=== PATIENT | male | born 1950 | race African-American/Black ===

== ENCOUNTER 2018-08-25 22:12 | Emergency (ER) | payer MEDICARE ==
[~2018-08-25] VITALS: Ht 160 cm; Wt 72.6 kg
--- OUTSIDE RECORDS SUMMARY | 2018-08-25 22:15 | XMS REPORT | Clinical Summary ---
Author Author [facility] Organization [facility] Address Unknown Phone Unavailable Care Team Providers Care Automatic Buffer Name Role Phone Dylan Moran MD PCP Allergies Comments Active Allergy Reactions Severity Noted Date No Known Drug Allergies Other (See 05/15/2015 Comments) Medications End Date Status Medication Sig Dispensed Refills Start Date Active potassium chloride TAKE 1 90 tablet 6 (K-DUR) 20 MEQ CR tablet TABLET(20 8 MEQ) BY MOUTH EVERY DAY Active clopidogrel (PLAVIX) 75 Take 1 tablet 30 tablet 11 mg tablet (75 mg total) 8 by mouth daily. Active atorvastatin (LIPITOR) 40 Take 1 tablet 30 tablet 6 MG tablet (40 mg total) 8 by mouth daily. Active sacubitril-valsartan Take 1 tablet 60 tablet 6 (ENTRESTO) 49-51 mg by mouth 2 8 tablet per tablet (two) times a day. Active ELIQUIS 5 mg tablet Take 1 tablet 60 tablet 6 (5 mg total) 8 by mouth 2 (two) times a day. 09/17/2018 Active furosemide (LASIX) 40 mg Take 1 tablet 90 tablet 3 tablet (40 mg total) 9 by mouth daily for 90 days. 07/24/2019 Active metoprolol succinate XL Take 3 30 tablet 0 (TOPROL-XL) 25 mg 24 hr tablets (75 9 tablet mg total) by mouth daily. 11/03/2017 Discontinued metoprolol tartrate Take 50 mg by 3 (LOPRESSOR) 50 mg tablet mouth 2 (two) 8 times a day. 1/2 tab daily 11/14/2017 Discontinued ELIQUIS 5 mg tablet Take 1 tablet 60 tablet 0 (5 mg total) 8 by mouth 2 (two) times a day. 11/28/2017 Discontinued sacubitril-valsartan Take 1 tablet 60 tablet 0 (ENTRESTO) 49-51 mg by mouth 2 8 tablet per tablet (two) times a day. 03/08/2018 Discontinued ferrous sulfate 325 (65 Take 325 mg 0 FE) MG tablet by mouth daily with breakfast. 08/24/2017 Discontinued torsemide (DEMADEX) 20 MG Take 20 mg by 0 tablet mouth daily. 2 tabs in am & 1 tab pm 09/01/2017 Discontinued clopidogrel (PLAVIX) 75 Take 75 mg by 0 mg tablet mouth daily. 12/26/2017 Discontinued atorvastatin (LIPITOR) 40 Take 1 tablet 30 tablet 3 MG tablet (40 mg total) 8 by mouth daily. 06/13/2018 Discontinued torsemide (DEMADEX) 20 MG Take 1 tablet 90 tablet 6 tablet (20 mg total) 8 by mouth daily. 2 tabs in am & 1 tab pm 04/10/2018 Discontinued metoprolol tartrate TAKE ONE 180 tablet 0 (LOPRESSOR) 50 mg tablet TABLET BY 8 MOUTH TWICE DAILY 11/28/2017 Discontinued ELIQUIS 5 mg tablet Take 1 tablet 60 tablet 6 (5 mg total) 8 by mouth 2 (two) times a day. 01/01/2018 Discontinued ELIQUIS 5 mg tablet Take 1 tablet 60 tablet 6 (5 mg total) 8 by mouth 2 (two) times a day. 01/01/2018 Discontinued sacubitril-valsartan Take 1 tablet 60 tablet 6 (ENTRESTO) 49-51 mg by mouth 2 8 tablet per tablet (two) times a day. 12/26/2017 Discontinued atorvastatin (LIPITOR) 40 Take 1 tablet 30 tablet 6 MG tablet (40 mg total) 8 by mouth daily. 07/23/2018 Discontinued metoprolol tartrate Take 1 tablet 180 tablet 0 (LOPRESSOR) 50 mg tablet (50 mg total) 9 by mouth 2 (two) times a day. 06/13/2018 Discontinued furosemide (LASIX) 40 mg Take 40 mg by 0 tablet mouth daily. 9 06/19/2018 Discontinued furosemide (LASIX) 40 mg Take 1 tablet 90 tablet 3 tablet (40 mg total) 9 by mouth daily for 90 days. 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 Active Problems Problem Noted Date CKD (chronic kidney disease) stage 2, GFR 60-89 ml/min 07/19/2018 Atrial fibrillation with normal ventricular rate 07/16/2018 Other cirrhosis of liver 06/29/2018 Stroke 06/28/2018 Overview: w/ weakness, speech difficulties 2013 Vascular dementia without behavioral disturbance 06/26/2018 Acute renal failure 06/02/2017 Blister of leg without infection 06/02/2017 Overview: Added automatically from request for surgery [id number] Small bowel obstruction 10/23/2016 Altered bowel function 05/15/2015 Blister of lower extremity without infection 05/15/2015 Overview: Lower leg Cellulitis of lower extremity 05/15/2015 Overview: Lower limb Chronic systolic congestive heart failure 05/15/2015 Essential hypertension 05/15/2015 Edema 05/15/2015 Overview: Lower leg Fatigue 05/15/2015 Pain of right lower extremity 05/15/2015 Overview: Pain in right leg Primary thrombocytopenia 05/15/2015 Pterygium 05/15/2015 Ulcerative lesion 05/15/2015 Wax in ear 05/15/2015 Encounters Care Team Description Date Type Specialty Carolyn Andrade RN Acute on chronic congestive heart failure, unspecified heart failure type (HCC) (Primary Dx) 07/27/2018 Orders Only Cardiology Bernard Bass MD Joglekar, Swati, MD Patel, Amitkumar Natvarlal, MD Zhang, Paul, MD 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) (Primary Dx); Homicidal ideation; Chronic systolic congestive heart failure (HCC); Essential hypertension; Primary thrombocytopenia (HCC); Vascular dementia without behavioral disturbance; Cerebrovascular accident (CVA), unspecified mechanism (HCC); Other cirrhosis of liver (HCC); Atrial fibrillation with normal ventricular rate (HCC) 06/26/2018 [facility] Internal Medicine - Encounter 07/23/2018 Fiorella Nuñze MA Med Refill 06/19/2018 Refill Cardiology Malik Carreon MA Med Refill 06/13/2018 Refill Cardiology Fiorella Nuñez MA 05/23/2018 Telephone Rheumatology Fiorella Nuñez MA Med Refill 04/10/2018 Refill Cardiology David Rae MD Tang, Sherman Y., MD Chronic systolic heart failure (HCC) (Primary Dx); Chronic atrial fibrillation (HCC); 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); Atherosclerosis of [place] artery of both lower extremities, with unspecified presence of clinical manifestation (HCC); AICD (automatic cardioverter/defibrillator) present 03/08/2018 Office Visit Cardiology Fiorella Nuñez MA Med Refill 01/01/2018 Refill Cardiology Fiorella Nuñez MA Med Refill 12/26/2017 Refill Cardiology Fiorella Nuñez MA Med Refill 11/28/2017 Refill Cardiology Fiorella Nuñez MA samples 11/14/2017 Telephone Cardiology Fiorella Nuñez MA Med Refill 11/14/2017 Telephone Cardiology Rito Moe MD Med Refill 11/03/2017 Refill Cardiology Rito Moe MD Chronic systolic heart failure (Primary Dx); Chronic atrial fibrillation; 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; Atherosclerosis of [place] artery of both lower extremities, with unspecified presence of clinical manifestation; AICD (automatic cardioverter/defibrillator) present 11/02/2017 Office Visit Cardiology Darci Chen MA SAMPLE 10/02/2017 Telephone Cardiology Malik Carreon MA samples 09/12/2017 Refill Cardiology Malik Carreon MA samples 09/12/2017 Refill Cardiology Darci Chen MA Med Refill 09/01/2017 Refill Cardiology Rito Moe MD Med Refill 08/31/2017 Refill Cardiology Fiorella Nuñez MA Med Refill 08/24/2017 Refill Cardiology after 08/24/2017 Immunizations Name Dates Previously Given Next Due Influenza, Unspecified 12/03/2015 Pneumococcal Conjugate 12/03/2015 Family History Medical History Relation Name Comments Hypertension Brother Cancer Father No Known Problems Maternal Grandfather No Known Problems Maternal Grandmother Heart disease Mother Rheumatic fever Mother No Known Problems Paternal Grandfather No Known Problems Paternal Grandmother Relation Name Status Comments Brother Alive Father Maternal Grandfather Maternal Grandmother Mother Paternal Grandfather Paternal Grandmother Social History Date Tobacco Use Types Packs/Day Years Used Former Smoker Smokeless Tobacco: Former User Alcohol Use Drinks/Week oz/Week Comments No Sex Assigned at Date Recorded Not on file Industry Job Start Date Occupation Not on file Not on file Not on file Travel End Travel History Travel Start No recent travel history available. Last Filed Vital Signs Time Taken Vital Sign Reading 07/23/2018 11:45 AM CDT Blood Pressure 127/62 07/23/2018 11:45 AM CDT Pulse 63 07/23/2018 11:35 AM CDT Temperature 36.6 C (97.8 F) 07/23/2018 11:35 AM CDT Respiratory Rate 16 07/23/2018 11:45 AM CDT Oxygen Saturation 100% - Inhaled Oxygen - Concentration 07/16/2018 9:45 PM CDT Weight 78.8 kg (173 lb 12.8 oz) 06/26/2018 12:39 PM CDT Height 190.5 cm (6' 3") 06/26/2018 12:39 PM CDT Body Mass Index 21.72 Plan of Treatment Care Team Description Date Type Specialty Rito Moe MD [address] [place] [address] [phone] 09/06/2018 Office Visit Cardiology Health Maintenance Due Date Last Done Comments COLON CANCER SCREENING 2000 SHINGLES VACCINES (#1) 2000 65+ PNEUMOCOCCAL VACCINE 12/02/2016 10/05/2016, 12/03/2015, 04/03/2015 (2 of 2 - PPSV23) INFLUENZA VACCINE 11/01/2018 01/19/2018, 01/19/2017, 12/03/2015 PNEUMOCOCCAL Completed 12/03/2015, 04/03/2015 POLYSACCHARIDE VACCINE AGE 65 AND OVER Implants Device Identifier Shelf Expiration Date Model / Serial / Lot Implanted Type Area Manufactur er 03/02/2018 S [id number] P6 / / [id number] Stent Trnshptc Bili Supera Periph Peripheral N/A: N/A BACA Slf-Xpnl 120cm 5.5x80mm 6f - or Biliary VASCULAR [id number] Stents DEVICES Implanted: 06/08/2017 (Quantity not on file) 08/21/2019 [id number] / / [id number] Catheter Log Rider [place] 75cm 7x80mm Surgical N/A: N/A [facility] [place] - [id number] Implants; PERIPHERAL Implanted: 06/08/2017 (Quantity not Expanders; INTERVENTI on file) Extenders; ON Surgical VASCULAR Wires IVANA DBP [id number] / / System Orbtl Athrctmy Cath Bsd Sld Surgical N/A: N/A CARDIOVASC Micr [place] 145cm 1.25mm - Implants; ULAR [id number] Expanders; SYSTEMS Implanted: 06/08/2017 (Quantity not Extenders; INC on file) Surgical Wires 12/01/2018 [id number] / / [id number] System Clsr Sut Meditd 6fr Perclose Surgical N/A: N/A B[employer] Proglide - [id number] Implants; VASCULAR Implanted: 06/08/2017 (Quantity not Expanders; DEVICES on file) Extenders; Surgical Wires 03/30/2021 [id number] / / [id number] Plug Hrnia Rpr Perfix Xl 1.6x2in - Surgical Right: N/A [employer] [id number] Mesh or Implanted: Qty: 1 on 10/24/2016 by Matias Larson MD [employer] Procedures Comments Procedure Name Priority Date/Time Associated Diagnosis ESTIMATED GFR Routine 07/21/2018 3:08 AM CDT COMPREHENSIVE METABOLIC Routine 07/21/2018 PANEL 3:08 AM CDT HC COMPLETE BLD COUNT Routine 07/21/2018 W/AUTO DIFF 3:08 AM CDT MAGNESIUM LEVEL Routine 07/17/2018 12:11 PM CDT ESTIMATED GFR STAT 07/17/2018 12:10 PM CDT BASIC METABOLIC PANEL STAT 07/17/2018 12:10 PM CDT ESTIMATED GFR Routine 07/15/2018 5:00 AM CDT COMPREHENSIVE METABOLIC Routine 07/15/2018 PANEL 5:00 AM CDT HC COMPLETE BLD COUNT Routine 07/15/2018 W/AUTO DIFF 5:00 AM CDT ESTIMATED GFR STAT 07/13/2018 1:00 PM CDT BASIC METABOLIC PANEL STAT 07/13/2018 1:[address] CHEST W CONTRAST Routine 07/12/2018 ABDOMEN W CONTRAST PELVIS 3:16 PM CDT W CONTRAST RAE ANTIBODY Routine 07/12/2018 12:15 PM CDT DNA AB SCREEN Routine 07/12/2018 12:15 PM CDT C4 COMPLEMENT COMPONENT Routine 07/12/2018 10:48 AM CDT C3 COMPLEMENT COMPONENT Routine 07/12/2018 10:[address] CHEST WO CONTRAST Routine 07/12/2018 9:57 AM CDT PLATELET FUNCTION Routine 07/12/2018 ANALYSIS 4:57 AM CDT PARTIAL THROMBOPLASTIN Routine 07/11/2018 TIME (PTT) 3:01 PM CDT AB42 TAU, CSF Routine 07/11/2018 7:48 AM CDT ESTIMATED GFR Routine 07/11/2018 4:19 AM CDT BASIC METABOLIC PANEL Routine 07/11/2018 4:19 AM CDT HC COMPLETE BLD COUNT Routine 07/11/2018 W/AUTO DIFF 4:19 AM CDT PARTIAL THROMBOPLASTIN Routine 07/11/2018 TIME (PTT) 4:19 AM CDT IR LUMBAR PUNCTURE Routine 07/10/2018 2:42 PM CDT BK VIRUS BY PCR Routine 07/10/2018 2:34 PM CDT CYTOMEGALOVIRUS BY PCR Routine 07/10/2018 2:34 PM CDT DAVID WILLIAMSON VIRUS (EBV) Routine 07/10/2018 BY PCR 2:34 PM CDT HERPES SIMPLEX VIRUS BY Routine 07/10/2018 PCR 2:34 PM CDT NATALY VIRUS, QUANTITATIVE Routine 07/10/2018 PCR 2:34 PM CDT VARICELLA ZOSTER BY PCR Routine 07/10/2018 2:34 PM CDT ENTEROVIRUS BY PCR Routine 07/10/2018 2:34 PM CDT [place] VIRUS BY PCR, Routine 07/10/2018 CSF 2:34 PM CDT GRAM STAIN Routine 07/10/2018 2:34 PM CDT CSF CULTURE Routine 07/10/2018 2:34 PM CDT FUNGUS CULTURE Routine 07/10/2018 2:34 PM CDT AFB CULTURE Routine 07/10/2018 2:34 PM CDT CRYPTOCOCCAL ANTIGEN Routine 07/10/2018 SCREEN 2:34 PM CDT PROTEIN 14.3.3 TAU THETA, Routine 07/10/2018 CSF 2:30 PM CDT MISCELLANEOUS REFERRAL Routine 07/10/2018 TEST 2:30 PM CDT VDRL, CSF SCREEN Routine 07/10/2018 2:30 PM CDT IGG SYNTHESIS RATE STUDY Routine 07/10/2018 2:30 PM CDT LDH, CSF Routine 07/10/2018 2:30 PM CDT OLIGOCLONAL BANDING, CSF Routine 07/10/2018 2:30 PM CDT [place] VIRUS ANTIBODY Routine 07/10/2018 PANEL, CSF 2:30 PM CDT ANGIOTENSIN CONVERTING Routine 07/10/2018 ENZYME, CSF 2:30 PM CDT CSF CELL COUNT WITH Routine 07/10/2018 DIFFERENTIAL 2:30 PM CDT GLUCOSE LEVEL, CSF Routine 07/10/2018 2:30 PM CDT FLOW CYTOMETRY EVALUATION Routine 07/10/2018 2:30 PM CDT HC COMPLETE BLD COUNT Routine 07/10/2018 W/AUTO DIFF 11:02 AM CDT US ABDOMEN COMPLETE Routine 07/10/2018 9:49 AM CDT ECHOCARDIOGRAM 2D Routine 07/10/2018 COMPLETE W MMODE SPECTRAL 8:43 AM CDT COLOR DOPPLER (75414) FIBRINOGEN Routine 07/10/2018 5:30 AM CDT D-DIMER Routine 07/10/2018 5:30 AM CDT ESTIMATED GFR Routine 07/10/2018 5:18 AM CDT COMPREHENSIVE METABOLIC Routine 07/10/2018 PANEL 5:18 AM CDT PLATELET FUNCTION P2Y12 Routine 07/10/2018 4:45 AM CDT PERIPHERAL SMEAR Routine 07/09/2018 7:40 PM CDT GLENN TITER Routine 07/09/2018 4:56 PM CDT HEPARIN PF4 ANTIBODY Routine 07/09/2018 (IGG) 4:56 PM CDT ANTI-NEUTROPHILIC Routine 07/09/2018 CYTOPLASMIC ABS PANEL 4:56 PM CDT GLENN Routine 07/09/2018 4:56 PM CDT PERIPHERAL SMEAR Routine 07/09/2018 4:45 AM CDT ESTIMATED GFR Routine 07/09/2018 4:45 AM CDT PLATELET FUNCTION P2Y12 Routine 07/09/2018 4:45 AM CDT HC COMPLETE BLD COUNT Routine 07/09/2018 W/AUTO DIFF 4:45 AM CDT PARTIAL THROMBOPLASTIN Routine 07/09/2018 TIME (PTT) 4:45 AM CDT COMPREHENSIVE METABOLIC Routine 07/09/2018 PANEL 4:45 AM CDT ESTIMATED GFR Routine 07/08/2018 4:47 AM CDT PLATELET FUNCTION P2Y12 Routine 07/08/2018 4:47 AM CDT HC COMPLETE BLD COUNT Routine 07/08/2018 W/AUTO DIFF 4:47 AM CDT PROTHROMBIN TIME WITH INR Routine 07/08/2018 4:47 AM CDT COMPREHENSIVE METABOLIC Routine 07/08/2018 PANEL 4:47 AM CDT PARTIAL THROMBOPLASTIN Routine 07/08/2018 TIME (PTT) 4:47 AM CDT PARTIAL THROMBOPLASTIN Routine 07/07/2018 TIME (PTT) 5:10 AM CDT CBC HEMOGRAM Routine 07/07/2018 5:10 AM CDT PARTIAL THROMBOPLASTIN Routine 07/06/2018 TIME (PTT) 8:10 PM CDT PLATELET FUNCTION P2Y12 Routine 07/06/2018 4:00 AM CDT PARTIAL THROMBOPLASTIN Routine 07/05/2018 TIME (PTT) 7:45 PM CDT ESTIMATED GFR Routine 07/05/2018 3:20 AM CDT COMPREHENSIVE METABOLIC Routine 07/05/2018 PANEL 3:20 AM CDT PLATELET FUNCTION P2Y12 Routine 07/05/2018 3:20 AM CDT PARTIAL THROMBOPLASTIN Routine 07/04/2018 TIME (PTT) 5:15 PM CDT PLATELET FUNCTION P2Y12 Routine 07/04/2018 3:45 AM CDT PARTIAL THROMBOPLASTIN Timed 07/03/2018 TIME (PTT) 9:45 AM CDT PLATELET FUNCTION P2Y12 STAT 07/03/2018 9:45 AM CDT ESTIMATED GFR Routine 07/03/2018 3:13 AM CDT COMPREHENSIVE METABOLIC Routine 07/03/2018 PANEL 3:13 AM CDT HC COMPLETE BLD COUNT Routine 07/03/2018 W/AUTO DIFF 3:00 AM CDT PARTIAL THROMBOPLASTIN Routine 07/03/2018 TIME (PTT) 3:00 AM CDT PLATELET FUNCTION P2Y12 Routine 07/03/2018 3:00 AM CDT ESTIMATED GFR Routine 06/30/2018 4:40 AM CDT COMPREHENSIVE METABOLIC Routine 06/30/2018 PANEL 4:40 AM CDT HC COMPLETE BLD COUNT Routine 06/30/2018 W/AUTO DIFF 4:40 AM CDT C-REACTIVE PROTEIN Routine 06/29/2018 6:40 PM CDT SEDIMENTATION RATE Routine 06/29/2018 6:40 PM CDT MISCELLANEOUS REFERRAL Routine 06/29/2018 TEST 6:40 PM CDT ESTIMATED GFR Routine 06/29/2018 5:35 AM CDT VITAMIN B12 LEVEL Routine 06/29/2018 5:35 AM CDT COMPREHENSIVE METABOLIC Routine 06/29/2018 PANEL 5:35 AM CDT HC COMPLETE BLD COUNT Routine 06/29/2018 W/AUTO DIFF 5:35 AM CDT THYROID STIMULATING Routine 06/29/2018 HORMONE 5:35 AM CDT EEG AWAKE/DROWSY LESS Routine 06/28/2018 THAN 41 MIN 1:44 PM CDT PROTHROMBIN TIME WITH INR Routine 06/28/2018 5:40 AM CDT AMMONIA LEVEL Routine 06/27/2018 6:00 PM CDT SYPHILIS TREPONEMAL IGG Routine 06/27/2018 6:00 PM CDT HIV AG/AB COMBINATION Routine 06/27/2018 6:00 PM CDT XR CHEST 2 VW STAT 06/26/2018 1:[address] HEAD WO CONTRAST STAT 06/26/2018 1:39 PM CDT SMEAR REVIEW STAT 06/26/2018 1:25 PM CDT ESTIMATED GFR STAT 06/26/2018 1:25 PM CDT URINE DRUGS OF ABUSE STAT 06/26/2018 SCREEN 1:25 PM CDT B NATRIURETIC PEP, I-STAT STAT 06/26/2018 1:25 PM CDT TROPONIN, I-STAT STAT 06/26/2018 1:25 PM CDT CREATINE KINASE, TOTAL STAT 06/26/2018 (CPK) 1:25 PM CDT COMPREHENSIVE METABOLIC STAT 06/26/2018 PANEL 1:25 PM CDT URINALYSIS STAT 06/26/2018 1:25 PM CDT HC COMPLETE BLD COUNT STAT 06/26/2018 W/AUTO DIFF 1:25 PM CDT ECG 12-LEAD STAT 06/26/2018 1:20 PM CDT after 08/24/2017 Results * Estimated GFR (07/21/2018 3:08 AM CDT) Only the most recent of 13 results within the time period is included. Pathologist [facility] Estimated GFR 62 mL/min/1.73 m2 [place] Comment: [facility] rpretation G1 >=90 Normal or high G2 60-89Mildly decreased Z0x59-71 Mildly to moderately decreased D2y34-93 Moderately to severely decreased G4 15-29Severely decreased G5 <15Kidney failure The eGFR was calculated using the Chronic Kidney Disease Epidemiology Collaboration (CKD-EPI) equation. Interpretation is based on recommendations of the National Kidney Foundation-Kidney Disease Outcomes Quality Initiative (NKF-KDOQI) published in 2014. Specimen Plasma specimen Performing Organization Address City/State/Zipcode Phone Number [facility] DEPARTMENT OF [address] [place] [address] PATHOLOGY AND GENOMIC MEDICINE [address] * CBC with platelet and differential (07/21/2018 3:08 AM CDT) Only the most recent of 10 results within the time period is included. [facility] WBC 6.29 4.50 - 11.00 k/uL [facility] RBC 5.41 4.40 - 6.00 m/uL [facility] HGB 15.4 14.0 - 18.0 g/dL [facility] HCT 47.7 41.0 - 51.0 % [facility] MCV 88.2 82.0 - 100.0 fL [facility] MCH 28.5 27.0 - 34.0 pg [facility] MCHC 32.3 31.0 - 37.0 g/dL [facility] RDW - SD 44.8 37.0 - 55.0 fL [facility] MPV 13.3 (H) 8.8 - 13.2 fL [facility] Platelet count 116 (L) 150 - 400 k/uL [facility] Nucleated RBC 0.00 /100 WBC [facility] Neutrophils 71.4 (H) 39.0 - 69.0 % [facility] Lymphocytes 15.9 (L) 25.0 - 45.0 % [facility] Monocytes 7.5 0.0 - 10.0 % [facility] Eosinophils 4.5 0.0 - 5.0 % [facility] Basophils 0.5 0.0 - 1.0 % [facility] Immature 0.2Comment: "Immature 0.0 - 1.0 % [place] granulocytes granulocytes" (promyelocytes, [place] myelocytes, metamyelocytes) [facility] Specimen Blood Performing Organization Address City/[facility] Phone Number [facility] DEPARTMENT OF [address] [place] [address] PATHOLOGY AND GENOMIC MEDICINE [address] * Comprehensive metabolic panel (07/21/2018 3:08 AM CDT) Only the most recent of 10 results within the time period is included. Sodium 139 135 - 148 mEq/L [facility] Potassium 4.3 3.5 - 5.0 mEq/L [facility] Chloride 102 98 - 112 mEq/L [facility] CO2 25 24 - 31 mEq/L [facility] Anion gap 12@ANIO 7 - 15 mEq/L [facility] BUN 21 8 - 23 mg/dL [facility] Creatinine 1.35 (H) 0.70 - 1.20 mg/dL [facility] Glucose 138 (H) 65 - 99 mg/dL [facility] Calcium 9.0 8.8 - 10.2 mg/dL [facility] Protein 7.1 6.3 - 8.3 g/dL [place] Comment: [facility] 4.6-7.0 g/dL 1 week 4.4-7.6 g/dL 7 months-1year 5.1-7.3 g/dL 1-2 years5.6-7 .5 g/dL >3 years6.0-8 .0 g/dL 18-150 6.3-8.3 g/dL Albumin 3.2 (L) 3.5 - 5.0 g/dL [facility] A/G ratio 0.8 0.7 - 3.8 [facility] Alkaline 140 (H) 40 - 129 U/L [place] phosphatase [facility] AST 33 10 - 50 U/L [facility] ALT 63 (H) 5 - 50 U/L [facility] Total bilirubin 0.4 0.0 - 1.2 mg/dL [facility] Specimen Plasma specimen Performing Organization Address City/[facility]/Zipcode Phone Number [facility] [place] [address] PATHOLOGY AND GENOMIC MEDICINE [address] * Magnesium level (07/17/2018 12:11 PM CDT) Pathologist [facility] Magnesium 2.0 1.6 - 2.4 mg/dL [facility] Specimen Plasma specimen Performing Organization Address City/[facility] Phone Number [facility] DEPARTMENT OF [address] [place] [address] PATHOLOGY AND GENOMIC MEDICINE [address] * Basic metabolic panel (07/17/2018 12:10 PM CDT) Only the most recent of 3 results within the time period is included. Sodium 142 135 - 148 mEq/L [facility] Potassium 3.9 3.5 - 5.0 mEq/L [facility] Chloride 104 98 - 112 mEq/L [facility] CO2 26 24 - 31 mEq/L [facility] Anion gap 12@ANIO 7 - 15 mEq/L [facility] BUN 16 8 - 23 mg/dL [facility] Creatinine 1.14 0.70 - 1.20 mg/dL [facility] Glucose 118 (H) 65 - 99 mg/dL [facility] Calcium 8.9 8.8 - 10.2 mg/dL [facility] Specimen Plasma specimen Performing Organization Address City/[facility] Phone Number [facility] DEPARTMENT OF [address] [place] [address] PATHOLOGY AND GENOMIC MEDICINE [address] * CT Chest W Contrast Abdomen W Contrast Pelvis W Contrast (07/12/2018 3:16 PM CDT) Specimen Narrative Performed At EXAMINATION:CT CHEST W CONTRAST ABDOMEN W CONTRAST PELVIS W CONTRAST RADIANT CLINICAL HISTORY:malignancy TECHNIQUE: Multiple axial images of the chest, abdomen, and pelvis were obtained following intravenous administration of iodinated contrast. Sagittal and coronal computerized reformatted images were obtained.Automatic exposure control or iterative reconstruction techniques used to reduce dose. COMPARISON:None. IMPRESSION: Chest: 1. No significant mediastinal or hilar lymphadenopathy. No significant pleural or pericardial effusions. Lungs are clear and central airways are patent. Abdomen/Pelvis: 1. No suspicious lesions are seen within the liver, pancreas, adrenals, kidneys, or spleen. 2.There is a large left inguinal hernia containing a loop of sigmoid colon, with prominent degree of retained stool above the hernia, without definite obstruction. Small right inguinal hernia containing small amount of fluid noted. No significant regional lymphadenopathy. No destructive osseous lesions. SUMMARY: 1.No evidence for metastatic disease identified. 2.Large left inguinal hernia containing a loop of sigmoid colon with moderate amount of retained stool above this level. [facility]-[id number] Procedure Note Interface, Radiology Results Incoming - 07/12/2018 4:14 PM CDT EXAMINATION: CT CHEST W CONTRAST ABDOMEN W CONTRAST PELVIS W CONTRAST CLINICAL HISTORY: malignancy TECHNIQUE: Multiple axial images of the chest, abdomen, and pelvis were obtained following intravenous administration of iodinated contrast. Sagittal and coronal computerized reformatted images were obtained.Automatic exposure control or iterative reconstruction techniques used to reduce dose. COMPARISON: None. IMPRESSION: Chest: 1. No significant mediastinal or hilar lymphadenopathy. No significant pleural or pericardial effusions. Lungs are clear and central airways are patent. Abdomen/Pelvis: 1. No suspicious lesions are seen within the liver, pancreas, adrenals, kidneys, or spleen. 2. There is a large left inguinal hernia containing a loop of sigmoid colon, with prominent degree of retained stool above the hernia, without definite obstruction. Small right inguinal hernia containing small amount of fluid noted. No significant regional lymphadenopathy. No destructive osseous lesions. SUMMARY: 1. No evidence for metastatic disease identified. 2. Large left inguinal hernia containing a loop of sigmoid colon with moderate amount of retained stool above this level. [facility]-[id number] Performing Organization Address [facility] Centercode Phone Number [facility] [address] [place] [id number] * Rae antibody (07/12/2018 12:15 PM CDT) Rae antibody <0.2 0.0 - 0.9 [facility] Rae antibody Negative [facility] Comment: [place] Anti-Rae antibodies occurs HOSPITAL in 30-35% of systemic lupus erythematosus (SLE) cases, but is very specific for SLE. It may also present in mixed connective-tissue disease (MCTD). Specimen Serum Performing Organization Address City/[facility]/Zipcode Phone Number [facility] DEPARTMENT OF [address] [place] [address] PATHOLOGY AND GENOMIC MEDICINE [address] * DNA Ab screen (07/12/2018 12:15 PM CDT) DNA Ab screen Not Detected Not-Detected [facility] Specimen Blood Performing Organization Address City/[facility] Centercode Phone Number [facility] DEPARTMENT OF [address] [place] [address] PATHOLOGY AND GENOMIC MEDICINE [address] * C3 complement component (07/12/2018 10:48 AM CDT) C3 complement 110 90 - 180 mg/dL [facility] Specimen Plasma specimen Performing Organization Address [facility] Centercode Phone Number [facility] DEPARTMENT OF [address] [place] [address] PATHOLOGY AND GENOMIC MEDICINE [address] * C4 complement component (07/12/2018 10:48 AM CDT) Pathologist [facility] C4 complement 33 10 - 40 mg/dL [facility] Specimen Plasma specimen Performing Organization Address [facility] Phone Number [facility] [place] [address] PATHOLOGY AND GENOMIC MEDICINE [address] * CT Chest Wo Contrast (07/12/2018 9:57 AM CDT) Specimen Narrative Performed At EXAMINATION: RADIANT CT CHEST WO CONTRAST CLINICAL HISTORY: DYSPNEAON EXERTION TECHNIQUE: Multiple axial images of the chest were obtained without intravenous contrast. The lack of intravenous contrast reduces the sensitivity of detecting solid organ disease and evaluating vasculature. Sagittal and coronal computerized reformatted images were also obtained.Automatic exposure control or iterative reconstruction techniques used to reduce dose. COMPARISON: None. FINDINGS: 1.Left-sided AICD noted. No significant regional lymphadenopathy. Coronary artery calcifications are seen. No significant pleural or pericardial effusions. Stable ectasia of the ascending thoracic aorta measuring 4.5 cm in diameter. 2.Lungs are clear and central airways are patent. Osseous structures are intact. IMPRESSION: 1.No acute intrathoracic abnormalities are noted. [facility]-[id number] Procedure Note Interface, Radiology Results Incoming - 07/12/2018 10:55 AM CDT EXAMINATION: CT CHEST WO CONTRAST CLINICAL HISTORY: DYSPNEA ON EXERTION TECHNIQUE: Multiple axial images of the chest were obtained without intravenous contrast. The lack of intravenous contrast reduces the sensitivity of detecting solid organ disease and evaluating vasculature. Sagittal and coronal computerized reformatted images were also obtained.Automatic exposure control or iterative reconstruction techniques used to reduce dose. COMPARISON: None. FINDINGS: 1. Left-sided AICD noted. No significant regional lymphadenopathy. Coronary artery calcifications are seen. No significant pleural or pericardial effusions. Stable ectasia of the ascending thoracic aorta measuring 4.5 cm in diameter. 2. Lungs are clear and central airways are patent. Osseous structures are intact. IMPRESSION: 1. No acute intrathoracic abnormalities are noted. [facility]-[id number] Performing Organization Address [facility] Centercode Phone Number [facility] [address] [place] [address] * Platelet function analysis (07/12/2018 4:57 AM CDT) PFA EPI closure 127 92 - 184 sec [facility] PFA ADP closure 109 72 - 126 sec [facility] Specimen Plasma specimen Performing Organization Address [facility] Phone Number [facility] [place] [address] * Partial thromboplastin time, activated (07/11/2018 3:01 PM CDT) Only the most recent of 10 results within the time period is included. PTT 38.8 (H) 23.0 - 36.0 sec [place] Comment: [place] PTT therapeutic range for HOSPITAL unfractionated heparin is 61.0-112.0 seconds which corresponds to Anti-Xa 0.3-0.7 U/ml. Specimen Blood Performing Organization Address [facility] Phone Number [facility] [place] [address] * AB42 Tau, CSF (07/11/2018 7:48 AM CDT) AB42 Tau, CSF see note [facility] Comment: [facility] Phospho-Tau/Total-Tau/Ab42 Interpretation This test detected borderline levels ofA-beta 42 , T-tauand/orP-tau protein in the CSF fluid. Comments:This analysis detected borderline levels of CSF A-beta 42 peptide (A-beta 42), total tau (T-tau) and/or phospho-tau (P-tau) protein as indicated in the technical results table. The clinical significance of these results is unknown. Please carefully reconcile these results with the patient's clinical symptoms and medical history. Recommendations: Health care providers, please contact the [facility] Client Services Department at if you wish to speak with a clinical admissions consultant regarding this test result. Technical Results A 42........... 558.15 pg/ml T-Tau.......... 306.7 pg/ml P-Tau............57.35 pg/ml ATI.................. 0.93 Reference range: Not consistent with AD: P-Tau <54 pg/mL and ATI >1.2 Borderline: PTau 54-68 pg/mL and/or ATI 0.8-1.2 AD: P-Tau >68 pg/mL and ATI <0.8 Test performed by: [facility] via [address] Specimen Cerebrospinal fluid Performing Organization Address City/State/Zipcode Phone Number [facility] DEPARTMENT OF [address] [place] [address] PATHOLOGY AND GENOMIC MEDICINE [facility] [address] [place] [address] * IR Lumbar Puncture by Radiology (07/10/2018 2:42 PM CDT) Specimen Narrative Performed At EXAMINATION: IR LUMBAR PUNCTURE [facility] CLINICAL HISTORY: MS evaluation COMPARISON:None TECHNIQUE: Informed consent and a timeout was performed. The patient's lower back was prepped and draped in the usual sterile fashion. Fluoroscopy was used for image guidance for lumbar puncture. FINDINGS: 1% lidocaine was used for local anesthesia. Under direct fluoroscopic guidance, access to the thecal sac was made with a 22-gauge spinal needle at the L5-S1 level. Opening pressure measured 16 cm H2O. A total of approximately 25 cc of clear colorless CSF was removed without difficulty. The patient tolerated the procedure well. There were no complications. The sample was sent to the laboratory for analysis as requested. Total fluoroscopy time was less than 1 second. 0 images were acquired. IMPRESSION: Successful fluoroscopic guided lumbar puncture as detailed above. [facility]-[id number] Procedure Note Hm Interface, Radiology Results Incoming - 07/10/2018 3:15 PM CDT EXAMINATION: IR LUMBAR PUNCTURE CLINICAL HISTORY: MS evaluation COMPARISON: None TECHNIQUE: Informed consent and a timeout was performed. The patient's lower back was prepped and draped in the usual sterile fashion. Fluoroscopy was used for image guidance for lumbar puncture. FINDINGS: 1% lidocaine was used for local anesthesia. Under direct fluoroscopic guidance, access to the thecal sac was made with a 22-gauge spinal needle at the L5-S1 level. Opening pressure measured 16 cm H2O. A total of approximately 25 cc of clear colorless CSF was removed without difficulty. The patient tolerated the procedure well. There were no complications. The sample was sent to the laboratory for analysis as requested. Total fluoroscopy time was less than 1 second. 0 images were acquired. IMPRESSION: Successful fluoroscopic guided lumbar puncture as detailed above. [facility]-[id number] Performing Organization Address [facility] [place] [address] * West Nile virus by PCR, CSF (07/10/2018 2:34 PM CDT) [facility] West Nile virus Not-Detected Not-Detected [place] PCR, CSF [facility] West Nile virus See link below for PDF [facility] PCR, CSF ReportComment: Case Number: [place] [id number] HOSPITAL Specimen Cerebrospinal fluid Performing Organization Address [facility] Phone Number [facility] [place] [address] PATHOLOGY AND GENOMIC MEDICINE [address] * NATALY virus, quantitative PCR (07/10/2018 2:34 PM CDT) [facility] NATALY virus result Not-Detected Not-Detected [place] copies/mL [facility] NATALY virus qPCR See link below for PDF Lab [place] quant ReportComment: Case Number: [place] [id number] HOSPITAL Specimen Performing Organization Address [facility] Centercode Phone Number [facility] DEPARTMENT OF [address] [place] [address] PATHOLOGY AND GENOMIC MEDICINE [address] * Cytomegalovirus by PCR (07/10/2018 2:34 PM CDT) [facility] Cytomegalovirus Not-Detected Not-Detected IU/mL [facility] PCR [facility] Cytomegalovirus See link below for PDF Lab [place] by PCR ReportComment: Case Number: [place] [id number] HOSPITAL Specimen Cerebrospinal fluid Performing Organization Address City/State/Zipcode Phone Number [facility] DEPARTMENT [address] [address] PATHOLOGY AND GENOMIC MEDICINE [address] [address] [facility] * Varicella zoster by PCR (07/10/2018 2:34 PM CDT) Pathologist [facility] VZV result Not-Detected Not-Detected [place] copies/mL [facility] Varicella See link below for PDF Lab [place] zoster, pcr ReportComment: Case Number: [place] [id number] HOSPITAL Specimen Performing Organization Address City/State/Zipcode Phone Number [facility] [place] [address] PATHOLOGY AND GENOMIC MEDICINE [address] * Herpes simplex virus by PCR (07/10/2018 2:34 PM CDT) [facility] Herpes virus, Not-Detected Not-Detected [place] PCR [facility] Herpes virus, See link below for PDF Lab [place] PCR ReportComment: Case Number: [place] [id number] HOSPITAL Specimen Performing Organization Address City/State/Zipcode Phone Number [facility] DEPARTMENT [address] [address] PATHOLOGY AND GENOMIC MEDICINE [address] [address] [facility] * David Williamson Virus (EBV) by PCR (07/10/2018 2:34 PM CDT) [facility] David Williamson Not-Detected Not-Detected [place] virus, PCR copies/mL [facility] David Williamson See link below for PDF Lab [place] virus, PCR ReportComment: Case Number: [place] [id number] HOSPITAL Specimen Performing Organization Address City/State/Zipcode Phone Number [facility] DEPARTMENT [address] [address] PATHOLOGY AND GENOMIC MEDICINE [address] [address] [facility] * BK virus by PCR (07/10/2018 2:34 PM CDT) [facility] BK virus PCR Not-Detected Not-Detected [place] copies/mL [facility] BK virus PCR See link below for PDF Lab [place] ReportComment: Case Number: [place] [id number] [facility]OSPITAL Specimen Cerebrospinal fluid Performing Organization Address City/State/Zipcode Phone Number [facility] DEPARTMENT OF [address] [place] [address] PATHOLOGY AND GENOMIC MEDICINE [address] * AFB culture (07/10/2018 2:34 PM CDT) Pathologist [facility] AFB culture No growth after 6 weeks of [place] isolate incubation. [place] Comment: HOSPITAL Specimen Information Specimen Source: CSF (Spinal Fluid) Specimen Site: No tube number noted Specimen Cerebrospinal fluid - No tube number noted Performing Organization Address City/State/Zipcode Phone Number [facility] DEPARTMENT OF [address] [place] [address] PATHOLOGY AND GENOMIC MEDICINE [address] * Cryptococcal antigen, screen (07/10/2018 2:34 PM CDT) Pathologist [facility] Cryptococcal Ag Negative - No Cryptococcus [place] antigen detected. [place] Comment: HOSPITAL Specimen Information Specimen Source: CSF (Spinal Fluid) Specimen Site: No tube number noted Specimen Cerebrospinal fluid - No tube number noted Performing Organization Address City/State/Zipcode Phone Number [facility] [place] [address] PATHOLOGY AND GENOMIC MEDICINE [address] * Enterovirus by PCR (07/10/2018 2:34 PM CDT) [facility] Enterovirus PCR Not-Detected Not-Detected [facility] Enterovirus PCR See link below for [facility] ReportComment: Case Number: [place] [id number] HOSPITAL Specimen Performing Organization Address City/State/Zipcode Phone Number [facility] DEPARTMENT OF [address] [place] [address] PATHOLOGY AND GENOMIC MEDICINE [address] * Gram stain (07/10/2018 2:34 PM CDT) Pathologist [facility] Gram stain No WBC's or organisms seen. [place] isolate Comment: [place] Specimen Information HOSPITAL Specimen Source: CSF (Spinal Fluid) Specimen Site: No tube number noted Specimen Cerebrospinal fluid - No tube number noted Performing Organization Address City/State/Zipcode Phone Number [facility] [place] [address] PATHOLOGY AND [facility] MEDICINE [address] * CSF culture (07/10/2018 2:34 PM CDT) CSF culture No growth after 72 hours [facility] isolate Comment: [place] Specimen Information HOSPITAL Specimen Source: CSF (Spinal Fluid) Specimen Site: No tube number noted Specimen Cerebrospinal fluid - No tube number noted Performing Organization Address City/[facility] Centercode Phone Number [facility] [place] [address] PATHOLOGY AND [facility] MEDICINE [address] * Fungus culture (07/10/2018 2:34 PM CDT) Pathologist [facility] Fungus culture No growth after 4 weeks of [place] isolate incubation. [place] Comment: HOSPITAL Specimen Information Specimen Source: CSF (Spinal Fluid) Specimen Site: No tube number noted Specimen Cerebrospinal fluid - No tube number noted Performing Organization Address [facility] Centercone Phone Number [facility] [place] [address] PATHOLOGY AND [facility] MEDICINE [address] * IgG synthesis rate study (07/10/2018 2:30 PM CDT) IgG albumin 0.20 0.00 - 0.23 [place] ratio, CSF [facility] IgG index, CSF 0.44 0.01 - 0.63 [facility] IgG synthetic 0.01 -9.90 - 3.30 mg/day [facility] Q-albumin 14.27 (H) 2.40 - 8.10 [place] ratio, CSF [facility] IgG, CSF 7.82 (H) 1.00 - 3.00 mg/dL [facility] Albumin, CSF 38.53 (H) 10.00 - 30.00 mg/dL [facility] IgG 1,248 700 - 1,600 mg/dL [facility] Albumin, S 2,700.0 (L) 3,640.0 - 5,304.0 [place] mg/dL [facility] Specimen Cerebrospinal fluid Performing Organization Address City/[facility] Centercode Phone Number [facility] [place] [address] PATHOLOGY AND GENOMIC MEDICINE [address] * Protein 14.3.3 Tau Theta, CSF (07/10/2018 2:30 PM CDT) Protein 14.3.3 see note [facility] Tau, CSF Comment: 14-3-3 Protein Tau, Total, CSF [facility] test code [id number] 14-3-3 Protein Tau, Total, CSF See Note Specimen Condition: Clear Estimated probability of prion disease in this patient: <2% Reference Range for Test Name (specimen) Result Non-Prion Disease RT-QuIC (CSF)* Negative negative *RT-QuIC identifies the disease-causing agent Reference Range for Test Name (specimen) Result Non-Prion Disease T-tau protein (CSF)++ 409 pg/ml 0-1149 pg/ml 14-3-3 protein (CSF)++ Positive negative ++indirect markers of neurodegenerative disease These tests must not be used to exclude prion disease. A definitive diagnosis of prion disease can only be given after thorough examination of autopsy brain tissue. If prion disease is still suspected, the laboratory is able to offer a no-cost autopsy to determine whether or not prions are the cause of disease. Laboratory staff are available to work with healthcare providers and the patient's family to plan an autopsy, if desired. These tests were developed and their performance characteristics determined by the [facility], and have not been cleared or approved by the FDA. These assays should be used in conjunction with other clinical, pathological and laboratory findings. Please note, RT-QuIC and 14-3-3 protein tests cannot be performed reliably when there is a significant presence of blood in the CSF specimen. Urban Jarrett M.D. Performed at: [facility], [address] [place] [address], Room [address] [id number] Specimen Serum Performing Organization Address City/State/[facility] Cent[facility]one Phone Number [facility] [address] [place] [address] [facility] [address] [place] [address] * West Nile virus antibody panel, CSF (07/10/2018 2:30 PM CDT) [facility] Signature West Nile IgG, 0.01 <=1.29 IV [facility] CSF Comment: INTERPRETIVE INFORMATION: West Nile Virus Ab IgG by [facility], CSF 1.29 IV or less ....... Negative: No significant level of West Nile virus IgG antibody detected. 1.30 - 1.49 IV ........ Equivocal: Questionable presence of West Nile virus IgG antibody detected. Repeat testing in 10-14 days may be helpful. 1.50 IV or greater .... Positive: Presence of IgG antibody to West Nile virus detected , suggestive of current or past infection. This test is intended to be used as a semi-quantitative means of detecting West Nile virus-specific IgG in CSF samples in which there is a clinical suspicion of West Nile Virus infection. This test should not be used solely for quantitative purposes, nor should the results be used without correlation to clinical history or other data. Because other members of the Flaviviridae family, such as [place] encephalitis virus, show extensive cross-reactivity with West Nile virus, serologic testing specific for these species should be considered. The detection of antibodies to West Nile virus in cerebrospinal fluid may indicate central nervous system infection. However, consideration must be given to possible contamination by blood or transfer of serum antibodies across the blood-brain barrier. Test developed and characteristics determined by [employer]. See Compliance Statement B: [employer] West Nile IgM, 0.00 <=0.89 IV [facility] CSF Comment: INTERPRETIVE INFORMATION: West Nile Virus Ab IgM by [facility], CSF 0.89 IV or less ...... Negative - No significant level of West Nile virus IgM antibody detected. 0.90-1.10 IV ......... Equivocal - Questionable presence of West Nile virus IgM antibody detected. Repeat testing in 10-14 days may be helpful. 1.11 IV or greater ... Positive - Presence of IgM antibody to West Nile virus detected, suggestive of current or recent infection. This test is intended to be used as a semi-quantitative means of detecting West Nile virus-specific IgM in CSF samples in which there is a clinical suspicion of West Nile virus infection. This test should not be used solely for quantitative purposes, nor should the results be used without correlation to clinical history or other data. Because other members of the Flaviviridae family, such as [place] encephalitis virus, show extensive cross-reactivity with West Nile virus, serologic testing specific for these species should be considered. The detection of antibodies to West Nile virus in cerebrospinal fluid may indicate central nervous system infection. However, consideration must be given to possible contamination by blood or transfer of serum antibodies across the blood-brain barrier. Test developed and characteristics determined by [employer]. See Compliance Statement B: [employer] Performed by [employer], [address] [place], [place] [id number] [email or web address], Luis Miguel Blackman MD - Lab. Director Specimen Cerebrospinal fluid Performing Organization Address City/State/Zipcode Phone Number [facility] [address] [place] [address] [facility] [address] [place] [address] * LDH, CSF (07/10/2018 2:30 PM CDT) LDH, CSF 30 U/L [place] Comment: [place] Analysis performed on [facility] 8000 analyzer. This is not an approved methodology for this specimen type;accuracy and clinical significance uncertain. Specimen Cerebrospinal fluid Performing Organization Address City/State/Zipcode Phone Number [facility] DEPARTMENT OF [address] [place] [address] PATHOLOGY AND GENOMIC MEDICINE [place] [address] [place] [address] HOSPITAL * Miscellaneous referral test (07/10/2018 2:30 PM CDT) Only the most recent of 2 results within the time period is included. Pathologist Psychiatric test name [id number] [facility] Misc test SEE NOTE [facility] result Comment: Report Status:FINAL Encephalopathy-Autoimmune Eval, CSF Encephalopathy, Interpretation, CSF No informative autoantibodies were detected in this evaluation. However, a negative result does not exclude autoimmune encephalopathy, idiopathic or paraneoplastic. Sensitivity and specificity of antibody testing are enhanced by testing both serum and CSF. .............................. .............................. NMDA-R Ab CBA, CSF Negative Reference Value: Negative .............................. .............................. VGKC-complex Ab IPA, CSF 0.00 nmol/L Reference Value: 0.00-0.02 .............................. .............................. LGI1-IgG CBA, CSF Negative Reference Value: Negative .............................. .............................. CASPR2-IgG CBA, CSF Negative Reference Value: Negative .............................. .............................. GAD65 Ab Assay, CSF 0.00 nmol/L Reference Value: <=0.02 .............................. .............................. RACQUEL-B-R Ab CBA, CSF Negative Reference Value: Negative .............................. .............................. AMPA-R Ab CBA, CSF Negative Reference Value: Negative .............................. .............................. Anti-Neuronal Nuclear Ab, Type 1 ZEINA-1, CSF Negative titer Reference Value: <1:2 .............................. .............................. Reflex Added None. .............................. .............................. Anti-Neuronal Nuclear Ab, Type 2 ZEINA-2, CSF Negative titer Reference Value: <1:2 .............................. .............................. Anti-Neuronal Nuclear Ab, Type 3 ZEINA-3, CSF Negative titer Reference Value: <1:2 .............................. .............................. Anti-Glial Nuclear Ab, Type 1 AGNA-1, CSF Negative titer Reference Value: <1:2 .............................. .............................. Purkinje Cell Cytoplasmic Ab Type 1 ENGINEER STATION MAINLINE-1, CSF Negative titer Reference Value: <1:2 .............................. .............................. Purkinje Cell Cytoplasmic Ab Type 2 ENGINEER STATION MAINLINE-2, CSF Negative titer Reference Value: <1:2 .............................. .............................. Purkinje Cell Cytoplasmc Ab Type Tr ENGINEER STATION MAINLINE-Tr, CSF Negative titer Reference Value: <1:2 .............................. .............................. Amphiphysin Ab, CSF Negative titer Reference Value: <1:2 .............................. .............................. CRMP-5-IgG, CSF Negative titer Reference Value: <1:2 - - - - - - - - - - - - - - - - - - - - - - - - - - - - - - - Laboratory Notes: This test was developed and its performance characteristics determined by [facility] in a manner consistent with CLIA requirements. This test has not been cleared or approved by the U.S. Food and Drug Administration. + + : PERFORMING SITE LEGEND : + + : MCR: [facility]: :: [address] [place] [address]: + + Specimen Performing Organization Address City/State/Zipcode Phone Number [facility] [address] [place] [address] [facility] [address] [place] [address] * Flow cytometry evaluation (07/10/2018 2:30 PM CDT) [facility] Flow cytometry See link below for PDF Lab [place] evaluation Report [facility] Specimen Fluid Performing Organization Address City/State/Zipcode Phone Number [facility] [place] [address] PATHOLOGY AND GENOMIC MEDICINE [facility] * Oligoclonal banding, CSF (07/10/2018 2:30 PM CDT) [facility] Protein, CSF 62 (H) 15 - 45 mg/dL [facility] Prealbumin, CSF 2.6 (L) 3.5 - 11.1 % [facility] Albumin, CSF 64.6 40.8 - 66.2 % [facility] Alpha 1, CSF 3.1 2.3 - 6.4 % [facility] Alpha 2, CSF 6.1 6.1 - 12.6 % [facility] Beta, CSF 14.3 11.7 - 24.1 % [facility] Gamma, CSF 9.3 5.6 - 12.2 % [facility] CSF extended See Comment [place] interpretation Comment: [place] An abnormal CSF protein study HOSPITAL with increased total protein and increased Q-albumin and decreased prealbumin indicating a slight disruption of the blood brain barrier. No oligoclonal bands are seen. CSF See CommentComment: Diamond Duarte, PhD; Gloria Lay, PhD; Yomaira Montana MD. HOSPITAL Specimen Cerebrospinal fluid Performing Organization Address City/[facility]/Zipcode Phone Number [facility] [place] [address] PATHOLOGY AND [facility] MEDICINE [address] * CSF cell count with differential (07/10/2018 2:30 PM CDT) Pathologist [facility] Color, CSF Colorless [facility] Appearance, CSF Clear [facility] RBC, CSF 1 0 - 1 /CMM [facility] WBC, CSF 1 0 - 5 /CMM [facility] CSF mononuclear 1/CMM [place] cell [facility] Specimen Cerebrospinal fluid Performing Organization Address City/State/Zipcode Phone Number [facility] [place] [address] PATHOLOGY AND GENOMIC MEDICINE [address] * VDRL, CSF screen (07/10/2018 2:30 PM CDT) Pathologist [facility] VDRL, CSF Non-reactive Non-reactive [facility] Specimen Cerebrospinal fluid Performing Organization Address City/[facility]/Zipcode Phone Number [facility] DEPARTMENT OF [address] [place] [address] PATHOLOGY AND GENOMIC MEDICINE [address] * Glucose level, CSF (07/10/2018 2:30 PM CDT) Pathologist [facility] Glucose, CSF 61 40 - 70 mg/dL [facility] Specimen Cerebrospinal fluid Performing Organization Address City/[facility]/Zipcode Phone Number [facility] DEPARTMENT OF [address] [place] [address] PATHOLOGY AND [facility] MEDICINE [address] * Angiotensin converting enzyme, CSF (07/10/2018 2:30 PM CDT) Pathologist [facility] Angiotensin 2.5 0.0 - 2.5 U/L [facility] converting Comment: enzyme, CSF This test was developed and its performance characteristics determined by [employer]. The U.S. Food and Drug Administration has not approved or cleared this test; however, FDA clearance or approval is not currently required for clinical use. The results are not intended to be used as the sole means for clinical diagnosis or patient management decisions. Performed by [facility] [employer], [address] [place] [id number] [email or web address], Luis Miguel Blackman MD - Lab. Director Specimen Cerebrospinal fluid Performing Organization Address [facility] Phone Number [facility] [address] [place] [address] [facility] [address] [place] [address] * US Abdomen Complete (07/10/2018 9:49 AM CDT) Specimen Narrative Performed At Examination: US ABDOMEN COMPLETE [facility] Clinical history: Hx of cirrhosisevaluate for splenomegaly Comparison: None Impression:Transverse and longitudinal sonographic images were obtained through the abdomen. 1.The gallbladder is underdistended and suboptimally assessed.The common ductis normal in caliber, measuring 0.4 cm 2.The liver is suboptimally visualized due to overlying bowel gas. It demonstrates coarsened echotexture and subtle contour nodularity. The left hepatic lobe is not visualized. The portal vein is patent with hepatopetal flow and a diameter of 0.9 cm. The spleen is not enlarged, measuring 10.0 cm long axis. 3.The right kidney measures 10.0 and left kidney 10.6 cm in length. The kidneys demonstrate a normal sonographic appearance. 4.The visualized pancreas and inferior vena cava are unremarkable. Aortic calcifications are noted. 5.There is no suspicious fluid. [facility]-[id number] Procedure Note Interface, Radiology Results Incoming - 07/10/2018 12:53 PM CDT Examination: US ABDOMEN COMPLETE Clinical history: Hx of cirrhosis evaluate for splenomegaly Comparison: None Impression: Transverse and longitudinal sonographic images were obtained through the abdomen. 1. The gallbladder is underdistended and suboptimally assessed. The common duct is normal in caliber, measuring 0.4 cm 2. The liver is suboptimally visualized due to overlying bowel gas. It demonstrates coarsened echotexture and subtle contour nodularity. The left hepatic lobe is not visualized. The portal vein is patent with hepatopetal flow and a diameter of 0.9 cm. The spleen is not enlarged, measuring 10.0 cm long axis. 3. The right kidney measures 10.0 and left kidney 10.6 cm in length. The kidneys demonstrate a normal sonographic appearance. 4. The visualized pancreas and inferior vena cava are unremarkable. Aortic calcifications are noted. 5. There is no suspicious fluid. [facility]-[id number] Performing Organization Address City/State/Zipcode Phone Number [facility] [address] [place] [address] * Echocardiogram complete w contrast and 3D if needed (07/10/2018 8:43 AM CDT) Specimen Narrative Performed At [facility] Echocardiography Report [id number] [place] [address] Pat.Name:Rylie GLEASON.ID:[id number] .Date: 07/10/2018Refer.MD:JOLENE MOULTON MD Exam Time: 7:53:00 AMStudy Type:Routine Echo Height:75inWeight:180lb BSA: 2.1 o7IGJBmg:1950,68Y Sex: MALEBP:109/67 HR:52 bpmSonogrphr: FARIDA Menendez Pat. Stat.:Inpatient Room:[id number] Study Status:Final Echo Event ID:[id number] Order ID:[id number] Reason for Study:Cardiomyopathy; re-eval with status change Procedures:2D Echo, Colorflow Doppler, Strain Race:B SUMMARY: LV EF is moderately depressed. Beat to beat variability noted due to irregular rhythm. Estimated EF is 30-40%. RV systolic function is lower limits of normal. FINDINGS: LV: LV size is upper limits of normal. LV EF is moderately depressed.Beat to beat variability noted due to irregular rhythm.Global hypokinesis. Septal motion is paradoxical. EstimatedEF is 30-40%. RV: RV size is enlarged. A pacemaker wire is seen in the RV. RV systolicfunction is lower limits of normal. LA: LA volume is mild to moderately enlarged. RA: RA volume is enlarged. A pacemaker wire is seen. AO: Aortic root diameter is normal. VICKY: No pericardial effusion. There is an anterior space consistentwith a prominent epicardial fat pad. AV: Mild thickening and calcification of AV leaflets. Mild aorticregurgitation. MV: Moderate thickening and calcification of mitral leaflets. Focalcalcification of mitral leaflets. Mild mitral annular calcification.Mild mitral regurgitation. PV: Pulmonic valve not well seen. TV: No structural TV abnormalities noted. Mild tricuspid regurgitation Other:Insufficient TR jet to estimate PA systolic pressure. MEASUREMENTS: 2D Parasternal [place] LVOT 2.1 cmLA Ds4.9 cm LVIDd5.6 cmIndex2.7 cm/m Ao An2.2 cm LVIDs4.4 cmAo Rtd 3.6 cm Index1.7 cm/m LV%fs 21.4 % LV Deps018.4 g(122-174) IVSd 0.7 cmLVM Index 72.6 g/m2 LVPWd0.8 cmRWT0.3 LV EF Biplane UVNFJ873.3 ml (65-193) Index78.2 ml/m LV SV 57.3 ml [id number] tcPdghu82 ml/m LV EF 34.9 %(63-77) LA Sng Plane LA Area 25.3 cm2(8.8-23.4) LA Vol83 ml Index39.5 ml/m LA LngAx 6.2 cm RA Sng Plane RA Area 25.7 cm2(8.3-19.5) RA Vol85.6 ml Index40.8 ml/m RA LngAx 6.5 cm Signed 07/10/2018 10:44 AM Cyndee Henry MD Procedure Note Interface, Radiology Results In - 07/10/2018 10:45 AM CDT Echocardiography Report [id number] [place] [address] Pat.Name: ELAINE GLEASON Pat.ID: [id number] .Date: 07/10/2018 Refer.MD: JOLENE MOULTON MD Exam Time: 7:53:00 AM Study Type:Routine Echo Height: 75in Weight: 180lb BSA: 2.1 m2 Age: 2 1950,68Y Sex: MALE BP: 109/67 HR: 52 bpm Sonogrphr: FARIDA Menendez Pat. Stat.:Inpatient Room: [id number] Study Status:Final Echo Event ID:[id number] Order ID: [id number] Reason for Study:Cardiomyopathy; re-eval with status change Procedures:2D Echo, Colorflow Doppler, Strain Race: B SUMMARY: LV EF is moderately depressed. Beat to beat variability noted due to irregular rhythm. Estimated EF is 30-40%. RV systolic function is lower limits of normal. FINDINGS: LV: LV size is upper limits of normal. LV EF is moderately depressed. Beat to beat variability noted due to irregular rhythm. Global hypokinesis. Septal motion is paradoxical. Estimated EF is 30-40%. RV: RV size is enlarged. A pacemaker wire is seen in the RV. RV systolic function is lower limits of normal. LA: LA volume is mild to moderately enlarged. RA: RA volume is enlarged. A pacemaker wire is seen. AO: Aortic root diameter is normal. VICKY: No pericardial effusion. There is an anterior space consistent with a prominent epicardial fat pad. AV: Mild thickening and calcification of AV leaflets. Mild aortic regurgitation. MV: Moderate thickening and calcification of mitral leaflets. Focal calcification of mitral leaflets. Mild mitral annular calcification. Mild mitral regurgitation. PV: Pulmonic valve not well seen. TV: No structural TV abnormalities noted. Mild tricuspid regurgitation Other: Insufficient TR jet to estimate PA systolic pressure. MEASUREMENTS: 2D Parasternal [place] LVOT 2.1 cm LA Ds 4.9 cm LVIDd 5.6 cm Index 2.7 cm/m Ao An 2.2 cm LVIDs 4.4 cm Ao Rtd 3.6 cm Index 1.7 cm/m LV%fs 21.4 % LV Mass 152.4 g (122-174) IVSd 0.7 cm LVM Index 72.6 g/m2 LVPWd 0.8 cm RWT 0.3 LV EF Biplane LVEDV 164.3 ml (65-193) Index 78.2 ml/m LV SV 57.3 ml LVESV 107 ml Index 51 ml/m LV EF 34.9 % (63-77) LA Sng Plane LA Area 25.3 cm2 (8.8-23.4) LA Vol 83 ml Index 39.5 ml/m LA LngAx 6.2 cm RA Sng Plane RA Area 25.7 cm2 (8.3-19.5) RA Vol 85.6 ml Index 40.8 ml/m RA LngAx 6.5 cm Signed 07/10/2018 10:44 AM Cyndee Henry MD Performing Organization Address City/[facility] Cent[facility]ode Phone Number [facility] [address] [place] [address] * Fibrinogen (07/10/2018 5:30 AM CDT) [facility] Fibrinogen 300 200 - 450 mg/dL [facility] Specimen Blood Performing Organization Address [facility] Phone Number [facility] DEPARTMENT OF [address] [place] [address] PATHOLOGY AND [facility] MEDICINE [address] * D-dimer (07/10/2018 5:30 AM CDT) [facility] D-dimer 0.91 (H) 0.00 - 0.40 ug/mL [place] Comment: FEU [place] Units are ug/ml Fibrinogen HOSPITAL Equivalent Unit. When combined with low clinical probability, D-dimer results of less than 0.5 ug/ml FEU have a good negativepredictive value in excluding PE or DVT. For D-dimer results greater than 0.5ug/ml FEU further testing is indicated if PE or DVT is suspectedclinically. Elevated D-dimer results have been reported in DVT, PE, and DIC cases and may indicate the presence of a clot. D-dimer results may be elevated due to old age, , inflammatory diseases, trauma, post-operative states, sepsis, and malignancies. Specimen Blood Performing Organization Address [facility] Cent[facility]one Phone Number [facility] DEPARTMENT OF [address] [place] [address] AND [facility] MEDICINE [address] * Platelet function P2Y12 (07/10/2018 4:45 AM CDT) Only the most recent of 8 results within the time period is included. [facility] Platelet 88 [place] function P2Y12 Comment: [place] Test results are reported in HOSPITAL P2Y12 Reaction Units (PRU). Platelet Function P2Y12 indicates the extent of platelet aggregation in the presence of P2Y12 antagonist. Definitive therapeutic reference ranges have not been established for this test. For patients on clopidogrel, clinical studies have shown that a P2Y12 result above 230 to 240 PRU is associated with an increase risk of arterial thrombosis, while a result less than 180 PRU is associated with an increased risk of bleeding. Test results may be adversely affected by therapy with the GPIIb/IIIa inhibitors.Drugs that affect platelet function may be detected up to 14 days after ingestion.The platelet function recovery time varies among individuals and is longer for patients with renal dysfunction.Other test limitations include patients with low hematocrit values or low platelet counts. This test is not intended for evaluation of patients with inherited platelet disorders. Specimen Blood Performing Organization Address City/[facility]/Zipcode Phone Number [facility] DEPARTMENT OF [address] [place] [address] PATHOLOGY [address] * Peripheral smear (07/09/2018 7:40 PM CDT) Only the most recent of 2 results within the time period is included. [facility] Peripheral Done [place] smear Comment: [place] Peripheral smear is located in HOSPITAL Hematology Laboratory, second floor of [facility]. Specimen Blood Performing Organization Address [facility]/Zipcode Phone Number [facility] [place] [address] PATHOLOGY [address] * GLENN titer (07/09/2018 4:56 PM CDT) [facility] GLENN titer 1:160 (A) Not-Detected [facility] GLENN pattern Homogeneous (A) Not-Detected [facility] Specimen Blood Performing Organization Address City/[facility]/Zipcode Phone Number [facility] DEPARTMENT OF [address] [place] [address] PATHOLOGY AND [facility] MEDICINE [address] * Heparin PF4 antibody (IgG) (07/09/2018 4:56 PM CDT) [facility] Heparin PF4 Ab 0.132 0.000 - 0.399 [place] OD reading [facility] Heparin PF4 Ab, Negative Negative [place] IgG [facility] Specimen Blood Performing Organization Address City/[facility]/Zipcode Phone Number [facility] [place] [address] PATHOLOGY AND [facility] MEDICINE [address] * Anti-neutrophilic cytoplasmic Abs panel (07/09/2018 4:56 PM CDT) [facility] ANCA screen Positive (A) Negative [facility] ANCA pattern P-ANCA (A) Negative [facility] ANCA titer Footnote Negative [place] Comment: [place] Formalin positive, P-ANCA HOSPITAL pattern detected on Ethanol, titer cannot be determined due to [place] interference. MPO and PR3 are both negative, clinical correlation is recommended. MPO <20 0 - 20 Units [place] (myeloperoxidas Comment: [place] e) Negative: HOSPITAL 0 - 20 units Weak Positive:2 1 - 30 units Moderate to Strong: > 30 units MPO Negative Negative [place] (myeloperoxidas [place] e) [facility] FL-3 (protease) <20 0 - 20 Units [place] Comment: [place] Negative: HOSPITAL 0 - 20 UNITS Weak Positive: 21 - 30 UNITS Moderate to Strong Positive: > 30 UNITS FL-3 (protease) Negative Negative [facility] Specimen Blood Performing Organization Address City/[facility] Centercode Phone Number [facility] [place] [address] PATHOLOGY AND [facility] MEDICINE [address] * GLENN (07/09/2018 4:56 PM CDT) [facility] GLENN screen Positive (A) Negative [facility] Specimen Blood Performing Organization Address City/[facility] Centercode Phone Number [facility] [place] [address] PATHOLOGY AND [facility] MEDICINE [address] * Prothrombin time with INR (07/08/2018 4:47 AM CDT) Only the most recent of 2 results within the time period is included. [facility] Prothrombin 15.0 (H) 11.5 - 14.5 sec [facility] INR 1.2 [place] Comment: [place] [facility] International Normalized HOSPITAL Ratio (INR) is a therapeutic monitoring tool for patients who are stable on oral anticoagulant therapy. An INR of 2.0-3.0 is suggested for deep vein thrombosis/pulmonary embolism. Specimen Blood Performing Organization Address City/[facility] Cent[facility]ode Phone Number [facility] DEPARTMENT OF [address] [place] [address] PATHOLOGY AND GENOMIC MEDICINE [address] * CBC hemogram (07/07/2018 5:10 AM CDT) [facility] WBC 4.91 4.50 - 11.00 k/uL [facility] RBC 5.31 4.40 - 6.00 m/uL [facility] HGB 15.2 14.0 - 18.0 g/dL [facility] HCT 48.1 41.0 - 51.0 % [facility] MCV 90.6 82.0 - 100.0 fL [facility] MCH 28.6 27.0 - 34.0 pg [facility] MCHC 31.6 31.0 - 37.0 g/dL [facility] RDW - SD 45.1 37.0 - 55.0 fL [facility] MPV 15.1 (H) 8.8 - 13.2 fL [facility] Platelet count 84 (L) 150 - 400 k/uL [facility] Nucleated RBC 0.00 /100 WBC [facility] Specimen Blood Performing Organization Address City/State/Zipcode Phone Number [facility] [place] [address] PATHOLOGY AND GENOMIC MEDICINE [address] * Sedimentation rate (06/29/2018 6:40 PM CDT) [facility] Sedimentation 7 0 - 10 mm/hr [facility] Specimen Blood Performing Organization Address City/State/Zipcode Phone Number [facility] [place] [address] PATHOLOGY AND GENOMIC MEDICINE [address] * C-reactive protein (06/29/2018 6:40 PM CDT) [facility] CRP <0.30 0.00 - 0.50 mg/dL [facility] Specimen Plasma specimen Performing Organization Address City/[facility]/Zipcode Phone Number [facility] [place] [address] PATHOLOGY AND GENOMIC MEDICINE [address] * Thyroid stimulating hormone (06/29/2018 5:35 AM CDT) [facility] TSH 1.12 0.27 - 4.20 uIU/mL [facility] Specimen Plasma specimen Performing Organization Address City/[facility]/Zipcode Phone Number [facility] DEPARTMENT OF [address] [place] [address] PATHOLOGY AND [facility] MEDICINE [address] * Vitamin B12 level (06/29/2018 5:35 AM CDT) [facility] Vitamin B12 634 211 - 946 pg/mL [place] Comment: [place] Significant overlap exists HOSPITAL between normal and deficiency states. However, most patients with deficiencies will have Serum B12 <200 pg/mL. Specimen Serum Performing Organization Address [facility] Centercode Phone Number [facility] DEPARTMENT OF [address] [place] [address] * EEG (routine) (06/28/2018 1:44 PM CDT) Narrative Performed At [facility] Date of Service: 06/28/18 Awake Recording: The occipital dominant rhythm is 9 Hz. 18-22 Hz activity is present in all regions. Sleep Recording:No sleep was recorded. Hyperventilation: Not performed. Photic Stimulation: Not performed. Impression The background activity is within the range of normal variation. No lateralized or epileptiform activity was recorded. ICD-10 Code: R569 * Syphilis treponemal IgG (06/27/2018 6:00 PM CDT) [facility] Syphilis Non-reactiveComment: Non-reactive [place] treponemal IgG Non-reactive: No serological [place] evidence of Syphilis infection HOSPITAL Specimen Serum Performing Organization Address [facility] Centercode Phone Number [facility] DEPARTMENT OF [address] [place], [place] [address] PATHOLOGY AND [facility] MEDICINE [address] * HIV Ag/Ab combination (06/27/2018 6:00 PM CDT) [facility] HIV Ag/Ab Non-reactive Non-reactive [facility] Specimen Blood Performing Organization Address [facility]/Zipcode Phone Number [facility] DEPARTMENT OF [address] [place] [address] PATHOLOGY AND [facility] [address] * Ammonia level (06/27/2018 6:00 PM CDT) Ammonia 32 16 - 60 umol/L [facility] Specimen Blood Performing Organization Address City/[facility]/Zipcode Phone Number [facility] DEPARTMENT OF [address] [place] [address] PATHOLOGY AND GENOMIC MEDICINE [facility] [address] [place] [address] HOSPITAL * XR Chest 2 Vw (06/26/2018 1:47 PM CDT) Specimen Narrative Performed At EXAMINATION:XR CHEST 2 VW [facility] CLINICAL HISTORY: 68 years Male ams PEC COMPARISON: 06/02/2017 IMPRESSION: 1.Single lead left chest wall cardiac device. Heart size and central vasculature are normal. Thoracic aorta mildly tortuous. 2.Lungs are clear. 3.Bones are intact [facility]-[id number] Procedure Note Interface, Radiology Results Incoming - 06/26/2018 1:53 PM CDT EXAMINATION: XR CHEST 2 VW CLINICAL HISTORY: 68 years Male ams PEC COMPARISON: 06/02/2017 IMPRESSION: 1. Single lead left chest wall cardiac device. Heart size and central vasculature are normal. Thoracic aorta mildly tortuous. 2. Lungs are clear. 3. Bones are intact [facility]-[id number] Performing Organization Address [facility]/Zipcode Phone Number [facility] [address] [place] [address] * CT Head Wo Contrast (06/26/2018 1:39 PM CDT) Specimen Narrative Performed At EXAMINATION:CT HEAD WO CONTRAST [facility] CLINICAL HISTORY:ams COMPARISON:CT head 06/13/2013 TECHNIQUE: Noncontrast head CT performed using radiation dose reduction techniques.Technical factors are evaluated and adjusted to ensure appropriate moderation of exposure.Automated dose management technology is applied to adjust radiation exposure while achieving a diagnostic quality image. FINDINGS: No definite change in partially calcified extra-axial mass along the right frontal convexity, consistent with meningioma, measuring 10 mm. No evidence of acute infarct, hemorrhage, mass effect, or midline shift. 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 Mild chronic microvascular ischemic change. Basal cisterns are clear. Intracranial vascular calcifications are present. Calvarium is intact. Orbits are normal in appearance. No significant paranasal sinus mucosal thickening. Mastoid air cells are clear. IMPRESSION: 1. No CT evidence of acute intracranial abnormality. 2. No change in partially calcified meningioma along the right frontal convexity. [id number] Procedure Note Interface, Radiology Results Incoming - 06/26/2018 1:45 PM CDT EXAMINATION: CT HEAD WO CONTRAST CLINICAL HISTORY: ams COMPARISON: CT head 06/13/2013 TECHNIQUE: Noncontrast head CT performed using radiation dose reduction techniques. Technical factors are evaluated and adjusted to ensure appropriate moderation of exposure. Automated dose management technology is applied to adjust radiation exposure while achieving a diagnostic quality image. FINDINGS: No definite change in partially calcified extra-axial mass along the right frontal convexity, consistent with meningioma, measuring 10 mm. No evidence of acute infarct, hemorrhage, mass effect, or midline shift. 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 Mild chronic microvascular ischemic change. Basal cisterns are clear. Intracranial vascular calcifications are present. Calvarium is intact. Orbits are normal in appearance. No significant paranasal sinus mucosal thickening. Mastoid air cells are clear. IMPRESSION: 1. No CT evidence of acute intracranial abnormality. 2. No change in partially calcified meningioma along the right frontal convexity. [id number] Performing Organization Address City/[facility]ode Phone Number [facility] [address] [place] [address] * Smear review (06/26/2018 1:25 PM CDT) Platelet slide Decreased (A) [place] review [facility] Anisocytosis Moderate [facility] Tear drop cells Occasional [facility] Ovalocytes Moderate [facility] Enlarged Moderate (A) [place] platelets [facility] Specimen Performing Organization Address [facility]/Zipcode Phone Number DEPARTMENT OF [address] [place] [address] PATHOLOGY AND GENOMIC MEDICINE, [address] * Urinalysis (06/26/2018 1:25 PM CDT) Glucose, UA Negative Negative [facility] Bilirubin, UA Negative Negative [facility] Ketones, UA Negative Negative [facility] Specific 1.010 1.001 - 1.035 [place] gravity, UA [facility] Blood, UA Moderate (A) Negative [facility] pH, UA 6.0 5.0 - 8.5 [facility] Protein, UA 1+ (A) Negative [facility] Urobilinogen, <2.0 <2.0 [facility] Nitrite, UA Negative Negative [facility] Leukocyte Negative Negative [place] esterase, UA [facility] Color, UA Yellow [facility] Appearance, UA Clear [facility] Specimen Urine Performing Organization Address City/[facility] Centercode Phone [place] [address] PATHOLOGY AND GENOMIC MEDICINE[address] * Troponin, I-Stat (06/26/2018 1:25 PM CDT) Troponin, 0.03 0.00 - 0.08 ng/mL [place] I-Stat Comment: [place] 0.09 - 1.49 [place] [facility] indicate increased risk of CENTER acute coronary syndrome. >=1.5 ng/ml Consistent with acute myocardial infarction. The diagnostic value of a single normal or non-diagnostic result is questionable.Serial samples at 2-6 hour intervals are required to rule out acute myocardial injury. Specimen Plasma specimen Performing Organization Address City/[facility] Centercode [place] [address] PATHOLOGY AND GENOMIC MEDICINE[address] * B natriuretic pep, I-Stat (06/26/2018 1:25 PM CDT) BNP, I-Stat 607 (H) 0 - 100 pg/mL [facility] Specimen Blood Performing Organization Address City/State/Zipcode Phone Number [place] [address] PATHOLOGY AND GENOMIC MEDICINE, [address] * Urine drugs of abuse screen (06/26/2018 1:25 PM CDT) Amphetamine Negative [place] screen, [facility] Barbiturate Negative [place] screen, urine [place] [facility] Benzodiazepine Negative [place] screen, urine [place] [facility] Cannabinoid Negative [place] screen, [facility] Cocaine screen, Negative [place] urine [place] [facility] Methadone Negative [place] metabolite [place] (EDDP), urine HOSPITAL Opiates screen, Negative [place] urine [place] [facility] Oxycodone Negative [place] screen, [facility] Phencyclidine Negative [place] screen, urine [place] [facility] Tricyclic Negative [place] screen, urine Comment: [place] Drug screen minimum HOSPITAL concentration of detectability Amphetamines 1000 ng/mL Barbiturates 200 ng/mL Benzodiazepines 300 ng/mL Cocaine 300 ng/mL Methadone 300 ng/mL Opiates 300 ng/mL Oxycodone 300 ng/mL Phencyclidine 25 ng/mL Cannabinoids 50 ng/mL Tricyclics 1000 ng/mL Results are from screening tests and should only be used for medical evaluation. Drug testing for legal purposes requires definitive (or confirmatory) testing methods, which are available upon request. Contact the laboratory if definitive testing is required. Specimen Urine Performing Organization Address City/State/Zipcode Phone Number [facility] DEPARTMENT [address] [address] PATHOLOGY AND GENOMIC MEDICINE [address] * Creatine kinase, total (CPK) (06/26/2018 1:25 PM CDT) [facility] Creatine kinase 111 39 - 380 U/L [facility] Specimen Plasma specimen Performing Organization Address City/[facility]/Zipcode Phone Number [place] [address] PATHOLOGY AND GENOMIC MEDICINE, [address] * ECG 12 lead (06/26/2018 1:20 PM CDT) Pathologist [facility] Ventricular 72 [facility] rate Atrial rate 81 [facility] QRSD interval 92 [facility] QT interval 400 [facility] QTC interval 438 [facility] MUSE QRS axis 1 7 [facility] M[facility] T wave axis 134 H MUSE EKG impression Atrial fibrillation with [facility] MUSE premature ventricular or aberrantly conducted complexes-Low voltage QRS-Inferior infarct (cited on or before 09-JUN-2013)-Cannot rule out Anteroseptal infarct (cited on or before 09-JUN-2013)-Abnormal ECG-In automated comparison with ECG of 02-JUN-2017 11:18,-Electronic demand pacing is no longer present-QRS axis shifted right-Serial changes of Anteroseptal infarct present- Specimen Narrative Performed At Performing Organization Address City/State/Zipcode Phone Number [facility] MUSE [address] [place] [address] after 08/24/2017 Insurance Type Payer Benefit Subscriber ID Effective Phone Address Plan / Dates Group HMO HUMANA MEDICARE HUMANA HMO xxxxxxxxx 2017-P GOLD PLUS resent MEDICARE Advance Directives Patient has advance care planning documents, and code status on file. For more i nformation, please contact: Sherwin Ye [address] [place] [address] Date Inactivated Comments Code Status Date Activated 07/23/2018 6:56 PM Full Code 06/28/2018 12:08 PM Code Status decision reached by: Patient
--- OUTSIDE RECORDS SUMMARY | 2018-08-25 22:16 | XMS REPORT | Encounter Summary ---
Author Organization Unknown Address [address] [place] [address] Phone [phone] Care Team Providers Care Conference Concierge Name Role Phone Dylan Moran MD 3 [phone] Rito Moe MD 82 [phone] [facility] 2 [phone] Janie Gonzalez MD 107 [phone] Chico Martinez 111 [phone] Anton Smith MD 111 [phone] Efrain Diaz MD 122 [phone] Reason for Visit depression; chronic conditions Instructions 1. Insomnia 2. Fatigue TSH, serum or plasma 3. Moderate recurrent major depression depression treatment: care instructions escitalopram 5 mg tablet 4. Essential hypertension CMP, serum or plasma 5. Raised prostate specific antigen PSA, serum or plasma 6. Hyperparathyroidism due to renal insufficiency 7. Vitamin D deficiency vitamin D, 25-hydroxy, total, serum 8. Body mass index 20-24 - normal Discussion Note: None recorded. Plan of Care Reminders Provider Appointments Work in Same Day 07/13/2018 11:30AM Dylan Moran MD Lab Vitamin D, 25-Hydroxy, Total, Serum 06/21/[address] [facility] CMP, Serum or Plasma 06/21/[address] [facility] PSA, Serum or Plasma 06/21/[address] [facility] TSH, Serum or Plasma 06/21/[address] [facility] Referral None recorded. Procedures None recorded. Surgeries None recorded. Imaging None recorded. Medications Name Start Date atorvastatin 40 mg tablet 1 po once daily with dinner clopidogrel 75 mg tablet Take 1 tablet every day by oral route for 90 days. Eliquis 5 mg tablet Take 1 tablet every day by oral route for 90 days. Entresto 49 mg-51 mg tablet Take 0.5 tablets twice a day by oral route for 90 days. escitalopram 5 mg tablet Take 1 tablet every day by oral route at bedtime for 30 days. ferrous sulfate 325 mg (65 mg iron) tablet Take 1 tablet 3 times a week by oral route. 06/01/2018 furosemide 40 mg tablet honey 100 % topical paste Apply 1 application every day by topical route for 90 days. metoprolol tartrate 50 mg tablet Take 0.5 tablets twice a day by oral route for 90 days. potassium chloride ER 20 mEq tablet,extended release(part/cryst) Take 1 tablet every day by oral route for 30 days. torsemide 20 mg tablet Take 2 tablets every day by oral route in the morning. 02/08/2018 Medications Administered None recorded. Vitals Height Weight BMI Blood Pressure 6 ft 3 in 187.6 lbs 23.4 kg/m2 136/64 mm[Hg] Lab Results None recorded. Allergies Code Code System Name Reaction Severity Status Onset NKDA Problems Name Status Onset Date Source Pulmonary Hypertension Active 01/04/2016 Hypertensive Heart Disease with Congestive Heart Failure Active 01/19/2017 Chronic Atrial Fibrillation Active 01/19/2017 Chronic Systolic Heart Failure Active 01/19/2017 Cardiac Cirrhosis Active 01/19/2017 Cardiac Pacemaker in Situ Active 01/19/2017 Thrombocytopenic Disorder Active 06/19/2017 Essential Hypertension Active 06/19/2017 History of Cerebrovascular Accident Active 06/19/2017 Hyperlipidemia Active 10/27/2017 Atherosclerosis of Arteries of the Extremities Active 10/27/2017 Varicose Veins of Lower Extremity with Inflammation Active 10/27/2017 Anemia of Chronic Disease Active 10/31/2017 Prediabetes Active 10/31/2017 Occult Blood in Stools Active 01/22/2018 Body Mass Index 25-29 - Overweight Active 03/22/2018 Hyperparathyroidism Due to Renal Insufficiency Active 03/22/2018 Vitamin D Deficiency Active 03/27/2018 Moderate Recurrent Major Depression Active 06/22/2018 Procedures Date Name Performed by 10/23/2016 Repair of Right Inguinal Hernia Information not available 01/04/2016 Tte W/doppler Complete Information not available 04/03/2007 Colonoscopy Information not available Pacemaker Information not available 06/01/2018 US, Scrotum [facility] ([facility]) [address] [place] [address] (Work Place) Vaccine List Vaccine Type influenza, high dose seasonal 01/19/20170.5 mL 01/19/20180.5 mL pneumococcal conjugate PCV 13 10/05/20160.5 mL pneumococcal polysaccharide PPV23 04/03/2015 zoster 0.65 mL Social History Smoking Status Never Smoker Past Encounters 06/21/2018 Insomnia; Fatigue; Moderate Recurrent Major Depression; Essential Hypertension; Raised Prostate Specific Antigen; Hyperparathyroidism Due to Renal Insufficiency; Vitamin D Deficiency; Body Mass Index 20-24 - Normal Dylan Moran MD: [address] [facility], [address], [place] [address], Ph. 06/01/2018 Left Inguinal Hernia; Body Mass Index 20-24 - Normal; Sore Throat Symptom; Hyperparathyroidism Due to Renal Insufficiency; Cirrhosis of Liver; Chronic Atrial Fibrillation; Atherosclerosis of Arteries of the Extremities; Chronic Systolic Heart Failure; Hypertensive Heart Disease with Congestive Heart Failure; Thrombocytopenic Disorder Dylan Moran MD: [address] [facility], [address], [place] [address], Ph. History of Present Illness Generalized Anxiety Disorder Reported By: Patient HPI: Context: depression. Modifying Factors: psychotropic medication. Associated Symptoms: ; See questionnaire results in Screening section Notes: depression
<div>hallucinations - hears thoughts in head, but not voices, or visual hallucinations
</div><div>hernia poor sleep, low motivation, down, ? statin causes ; nervous condition at age 18 got better w prayer, 1-2 weeks, more fearful, cant get thoughts in his mind, the devil is trying to hurt him, no Si, [place],; worried about surgery, fear started after he started thinking about needing another hernia suregery</div> Note:pt and spouse worried about depression Review of Systems:ROS as noted in the HPI Review of Systems None recorded. Physical Exam General Adult Exam (male), Mental Status Exam Reported By: Patient Constitutional: General Appearance: healthy-appearing, well-developed, well-groomed, clean, normal weight. Level of Distress: NAD. Ambulation: ambulating normally Head: Head: normocephalic, atraumatic Lungs: Respiratory effort: no dyspnea. Auscultation: breath sounds normal, good air movement, no wheezing, no rales/crackles, no rhonchi Cardiovascular: Heart Auscultation: RRR, normal S1, normal S2, no murmurs, no rubs, no gallops Mental Status Exam: Behavior: eye contact, cooperative, calm, pleasant. Speech: normal volume, pressured, stutter. Perception: no hallucinations. Cognition: alert, oriented to situation, memory intact. Intelligence: above average. Mood: ; Normal mood. Affect: happy, congruent to thought content. Insight: intact. Judgment: ; not impaired. Thought Processes: intact. Thought Content: unremarkable
--- OUTSIDE RECORDS SUMMARY | 2018-08-25 22:16 | XMS REPORT | Encounter Summary ---
Author Organization Unknown Address [address] [place] [address] Phone [phone] Care Team Providers Care Dance Hall Hostess Name Role Phone Dylan Moran MD 3 [phone] Rito Moe MD 82 [phone] [facility] 2 [phone] Janie Gonzalez MD 107 [phone] Chico Martinez 111 [phone] Anton Smith MD 111 [phone] Efrain Diaz MD 122 [phone] Reason for Visit congestion; sore throat; hernia Instructions 1. Left inguinal hernia inguinal hernia: care instructions US, scrotum - scrotal swelling, left more than right, suspect inguinal hernia. Please rule out scrotal mass general surgery referral 2. Body mass index 20-24 - normal 3. Sore throat symptom 4. Hyperparathyroidism due to renal insufficiency 5. Cirrhosis of liver 6. Chronic atrial fibrillation 7. Atherosclerosis of arteries of the extremities 8. Chronic systolic heart failure 9. Hypertensive heart disease with congestive heart failure 10. Thrombocytopenic disorder Discussion Note: None recorded. Plan of Care Reminders Provider Appointments Est Patient 06/21/2018 10:15AM Dylan Moran MD Lab None recorded. Referral General Surgery Referral 06/01/2018 Trey Patiño Procedures None recorded. Surgeries None recorded. Imaging US, Scrotum 06/01/2018 [facility] ([facility]) Medications Name Start Date atorvastatin 40 mg tablet 1 po once daily with dinner clopidogrel 75 mg tablet Take 1 tablet every day by oral route for 90 days. Eliquis 5 mg tablet Take 1 tablet every day by oral route for 90 days. Entresto 49 mg-51 mg tablet Take 0.5 tablets twice a day by oral route for 90 days. ferrous sulfate 325 mg (65 mg [...] BMI Blood Pressure 6 ft 3 in 198 lbs 24.7 kg/m2 130/80 mm[Hg] Lab Results None recorded. Allergies Code [...] Active 03/22/2018 Vitamin D Deficiency Active 03/27/2018 Procedures Date Name Performed by 10/23/2016 Repair of Right Inguinal Hernia Information not available 01/04/2016 Tte W/doppler Complete Information not available 04/03/2007 Colonoscopy Information not available Pacemaker Information not available 06/01/2018 US, Scrotum [facility] ([facility]) [address] [place] [address] (Work Place) Vaccine List Vaccine Type influenza, high dose seasonal 01/19/20170.5 mL 01/19/20180.5 mL pneumococcal conjugate PCV 13 10/05/20160.5 mL pneumococcal polysaccharide PPV23 04/03/2015 zoster 0.65 mL Social History Smoking Status Never Smoker Past Encounters 06/01/2018 Left Inguinal Hernia; Body Mass Index 20-24 - Normal; Sore Throat Symptom; Hyperparathyroidism Due to Renal Insufficiency; Cirrhosis of Liver; Chronic Atrial Fibrillation; Atherosclerosis of Arteries of the Extremities; Chronic Systolic Heart Failure; Hypertensive Heart Disease with Congestive Heart Failure; Thrombocytopenic Disorder Dylan Moran MD: [address] [facility], [address], [place] [address], Ph. History of Present Illness Upper Respiratory Symptoms Reported By: Patient Upper Respiratory Symptoms: Location: head, throat. Quality: dry cough. Duration: ; less than 1 week. Onset/Timing: sudden. Context: no sick contacts, no foreign travel, non-smoker. Modifying Factors: OTC medication. Associated Symptoms: no sweats, no fever, no vomiting, no diarrhea, no nausea; no runny nose Notes: 3-4 d ays, post nasal drip drainage, coughs but not bringing it up, no fever Note:Patient presents to the clinic today with the following concern(s):<div> < div><div>1) patient is stating that his scrotum sack is swollen and thinks it may be a hernia. Swelling and discomfort have been gradually getting worse. October 2016 had partial SBO due to R inguinal hernia. this was repaired by Dr. Matias Funes w mesh placemnt<div> <div><div>2) hard to pass gas, hard to pass stool < div> <div><div>3) cough</div></div></div></div></div></div></div></div></div> Review of Systems:ROS as noted in the HPI Review of Systems None recorded. Physical Exam General Adult Exam (male), General Adult Exam (Female), Upper Respiratory Infection Exam Comprehensive, Upper Respiratory Infection Exam Reported By: Patient Constitutional: General Appearance: healthy-appearing, well-nourished, well-developed. Ambulation: ambulating normally Head: Head: normocephalic, atraumatic Eyes: Lids and Conjunctivae: non-injected, no discharge, no pallor. Pupils: PERRLA. EOM: EOMI. Sclerae: non-icteric ENMT: Ears: EACs clear, TMs clear. Nose: nares patent, no septal deviation, no sinus tenderness, nasal discharge--rhinorrhea, erythematous nasal mucosa, edematous nasal muscosa. Lips, Teeth, and Gums: normal dentition. Oropharynx: moist mucous membranes, no exudates, tonsils not enlarged, erythema Neck: Neck: supple, trachea midline, no masses. Lymph Nodes: no cervical LAD Lungs: Auscultation: breath sounds normal, good air movement, no wheezing, no rales/crackles, no rhonchi Cardiovascular: Heart Auscultation: normal S1, normal S2, no murmurs. Auscultation regular rate and rhythm Abdomen: Bowel Sounds: normal. Inspection and Palpation: soft, non-distended, no tenderness, no guarding, no rebound tenderness, no masses, no CVA tenderness. Liver: non-tender, no hepatomegaly. Spleen: non-tender, no splenomegaly. Hernia: inguinal Male : Scrotum: swelling, tenderness. Testes: ; R testis palpable, cannot palpate L testis due to swelling
--- OUTSIDE RECORDS SUMMARY | 2018-08-25 22:16 | XMS REPORT | Continuity of Care Document ---
Author Author [facility] Interface Address Unknown Phone Unavailable Problems Problem Status Onset Date Classification Date Reported Comments Source Moderate Recurrent Major Depression 06/22/2018 Problem 06/22/2018 [facility] Moderate recurrent major depression 06/21/2018 Diagnosis 06/22/2018 [facility] Raised prostate specific antigen 06/21/2018 Diagnosis 06/22/2018 [facility] Essential hypertension 06/21/2018 Diagnosis 06/22/2018 [facility] Vitamin D deficiency 06/21/2018 Diagnosis 06/22/2018 [facility] Insomnia 06/21/2018 Diagnosis 06/22/2018 [facility] Fatigue 06/21/2018 Diagnosis 06/22/2018 [facility] Thrombocytopenic disorder 06/02/2018 Diagnosis 06/22/2018 [facility] Hypertensive heart disease with congestive heart failure 06/02/2018 Diagnosis 06/22/2018 [facility] Chronic systolic heart failure 06/02/2018 Diagnosis 06/22/2018 [facility] Atherosclerosis of arteries of the extremities 06/02/2018 Diagnosis 06/22/2018 [facility] Chronic atrial fibrillation 06/02/2018 Diagnosis 06/22/2018 [facility] Cirrhosis of liver 06/02/2018 Diagnosis 06/22/2018 [facility] Hyperparathyroidism due to renal insufficiency 06/02/2018 Diagnosis 06/22/2018 [facility] Sore throat symptom 06/01/2018 Diagnosis 06/22/2018 [facility] Left inguinal hernia 06/01/2018 Diagnosis 06/22/2018 [facility] Body mass index 20-24 - normal 06/01/2018 Diagnosis 06/22/2018 [facility] Vitamin D Deficiency 03/27/2018 Problem 06/22/2018 [facility] Body Mass Index 25-29 - Overweight 03/22/2018 Problem 06/22/2018 [facility] Hyperparathyroidism Due to Renal Insufficiency 03/22/2018 Problem 06/22/2018 [facility] Occult Blood in Stools 01/22/2018 Problem 06/22/2018 [facility] Anemia of Chronic Disease 10/31/2017 Problem 06/22/2018 [facility] Prediabetes 10/31/2017 Problem 06/22/2018 [facility] Hyperlipidemia 10/27/2017 Problem 06/22/2018 [facility] Atherosclerosis of Arteries of the Extremities 10/27/2017 Problem 06/22/2018 [facility] Varicose Veins of Lower Extremity with Inflammation 10/27/2017 Problem 06/22/2018 [facility] Systolic dysfunction 07/13/2017 Diagnosis 07/17/2017 [facility] Hospital patient 07/13/2017 Diagnosis 07/17/2017 [facility] History of cerebrovascular accident 06/19/2017 Diagnosis 07/17/2017 [facility] Peripheral vascular disease 06/19/2017 Diagnosis 07/17/2017 [facility] Anemia 06/19/2017 Problem 07/17/2017 [facility] Thrombocytopenic Disorder 06/19/2017 Problem 06/22/2018 [facility] Essential Hypertension 06/19/2017 Problem 06/22/2018 [facility] Peripheral Vascular Disease 06/19/2017 Problem 07/17/2017 [facility] Ascites 06/19/2017 Problem 07/17/2017 [facility] History of Cerebrovascular Accident 06/19/2017 Problem 06/22/2018 [facility] Unsteady gait 02/27/2017 Diagnosis 07/17/2017 [facility] Administrative reason for encounter 02/27/2017 Diagnosis 07/17/2017 [facility] Cardiac cirrhosis 01/19/2017 Diagnosis 07/17/2017 [facility] Immunization 01/19/2017 Diagnosis 07/17/2017 [facility] Diabetes mellitus screening 01/19/2017 Diagnosis 07/17/2017 [facility] Eye disorder screening 01/19/2017 Diagnosis 07/17/2017 [facility] Screening for malignant neoplasm of colon 01/19/2017 Diagnosis 07/17/2017 [facility] Screening for malignant neoplasm of prostate 01/19/2017 Diagnosis 07/17/2017 [facility] Hepatitis C screening 01/19/2017 Diagnosis 07/17/2017 [facility] Adult health examination 01/19/2017 Diagnosis 07/17/2017 [facility] Cardiac pacemaker in situ 01/19/2017 Diagnosis 07/17/2017 [facility] Congestive heart failure 01/19/2017 Diagnosis 07/17/2017 [facility] At risk for falls 01/19/2017 Diagnosis 07/17/2017 [facility] Advance directive discussed with patient 01/19/2017 Diagnosis 07/17/2017 [facility] Depression screening 01/19/2017 Diagnosis 07/17/2017 [facility] Hypertensive Heart Disease with Congestive Heart Failure 01/19/2017 Problem 06/22/2018 [facility] Chronic Atrial Fibrillation 01/19/2017 Problem 06/22/2018 [facility] Congestive Heart Failure 01/19/2017 Problem 07/17/2017 [facility] Chronic Systolic Heart Failure 01/19/2017 Problem 06/22/2018 [facility] Cardiac Cirrhosis 01/19/2017 Problem 06/22/2018 [facility] At Risk for Falls 01/19/2017 Problem 07/17/2017 [facility] Cardiac Pacemaker in Situ 01/19/2017 Problem 06/22/2018 [facility] Pulmonary Hypertension 01/04/2016 Problem 06/22/2018 [facility] Medications Medication Details Route Status Patient Instructions Ordering Provider Order Date Source ferrous sulfate 325 MG Oral Tablet ferrous sulfate 325 mg (65 mg iron) tablet Take 1 tablet 3 times a week by oral route. Active 06/01/2018 [facility] torsemide 20 MG Oral Tablet torsemide 20 mg tablet Take 2 tablets every day by oral route in the morning. Active 02/08/2018 [facility] Ciprofloxacin 500 MG Oral Tablet ciprofloxacin 500 mg tablet Active 07/13/2017 [facility] sacubitril 49 MG / valsartan 51 MG Oral Tablet [Entresto] Entresto 49 mg-51 mg tablet Take 1 tablet twice a day by oral route for 90 days. Active 07/13/2017 [facility] Metoprolol Tartrate 50 MG Oral Tablet metoprolol tartrate 50 mg tablet Active 07/13/2017 [facility] Potassium Chloride 20 MEQ Extended Release Oral Tablet potassium chloride ER 20 mEq tablet,extended release Take 1 tablet every day by oral route for 90 days. Active 07/13/2017 [facility] Bacitracin 0.5 UNT/MG Ophthalmic Ointment bacitracin 500 unit/gram eye ointment Active 06/19/2017 [facility] Furosemide 20 MG Oral Tablet furosemide 20 mg tablet Active 06/19/2017 [facility] Metolazone 2.5 MG Oral Tablet metolazone 2.5 mg tablet Active 06/19/2017 [facility] Metolazone 5 MG Oral Tablet metolazone 5 mg tablet Active 06/19/2017 [facility] Microencapsulated Potassium Chloride 20 MEQ Extended Release Oral Tablet potassium chloride ER 20 mEq tablet,extended release(part/cryst) Active 06/19/2017 [facility] prednisolone acetate 10 MG/ML Ophthalmic Suspension prednisolone acetate 1 % eye drops,suspension Active 06/19/2017 [facility] Acetaminophen-Codeine #3 300 mg-30 mg tablet Acetaminophen- Codeine #3 300 mg-30 mg tablet Take 1 tablet every 6 hours by oral route for 10 days. Active [facility] atorvastatin 40 MG Oral Tablet atorvastatin 40 mg tablet 1 po once daily with dinner Active [facility] clopidogrel 75 MG Oral Tablet clopidogrel 75 mg tablet Take 1 tablet every day by oral route for 90 days. Active [facility] apixaban 5 MG Oral Tablet [Eliquis] Eliquis 5 mg tablet Take 1 tablet every day by oral route for 90 days. Active [facility] Furosemide 40 MG Oral Tablet furosemide 40 mg tablet Active [facility] honey 100 % topical paste honey 100 % topical paste Apply 1 application every day by topical route for 90 days. Active [facility] Losartan Potassium 25 MG Oral Tablet losartan 25 mg tablet Take 1 tablet every day by oral route for 90 days. Active [facility] 24 HR metoprolol succinate 25 MG Extended Release Oral Tablet metoprolol succinate ER 25 mg tablet,extended release 24 hr Take 0.5 tablets every day by oral route for 90 days. Active [facility] Omeprazole 40 MG Delayed Release Oral Capsule omeprazole 40 mg capsule,delayed release Take 1 capsule every day by oral route for 90 days. Active [facility] Spironolactone 25 MG Oral Tablet spironolactone 25 mg tablet Take 1 tablet every day by oral route for 90 days. Active [facility] sacubitril 49 MG / valsartan 51 MG Oral Tablet [Entresto] Entresto 49 mg-51 mg tablet Take 0.5 tablets twice a day by oral route for 90 days. Active [facility] Metoprolol Tartrate 50 MG Oral Tablet metoprolol tartrate 50 mg tablet Take 0.5 tablets twice a day by oral route for 90 days. Active [facility] Microencapsulated Potassium Chloride 20 MEQ Extended Release Oral Tablet potassium chloride ER 20 mEq tablet,extended release(part/cryst) Take 1 tablet every day by oral route for 30 days. Active [facility] Escitalopram 5 MG Oral Tablet escitalopram 5 mg tablet Take 1 tablet every day by oral route at bedtime for 30 days. Active [facility] Allergies, Adverse Reactions, Alerts Substance Category Reaction Severity Reaction type Status Date Reported Comments Source Immunizations Immunization Date Given Site Status Last Updated Comments Source influenza, high dose seasonal 01/19/2018 completed [facility] influenza, high dose seasonal 01/19/2017 completed [facility] pneumococcal conjugate PCV 13 10/05/2016 completed [facility] pneumococcal polysaccharide PPV23 04/03/2015 completed [facility] zoster active [facility] Results Order Name Results Value Reference Range Date Interpretation Comments Source CBC W Auto Differential panel - Blood WBC 5.1 x10e3/uL 3.4 - 10.8 02/28/2017 [facility] CBC W Auto Differential panel - Blood RBC 4.51 x10e6/uL 4.14 - 5.80 02/28/2017 [facility] CBC W Auto Differential panel - Blood hemoglobin 13.3 g/dL 12.6 - 17.7 02/28/2017 [facility] CBC W Auto Differential panel - Blood hematocrit 41.1 % 37.5 - 51.0 02/28/2017 [facility] CBC W Auto Differential panel - Blood MCV 91 fL 79 - 97 02/28/2017 [facility] CBC W Auto Differential panel - Blood MCH 29.5 pg 26.6 - 33.0 02/28/2017 [facility] CBC W Auto Differential panel - Blood MCHC 32.4 g/dL 31.5 - 35.7 02/28/2017 [facility] CBC W Auto Differential panel - Blood RDW 15.5 % 12.3 - 15.4 02/28/2017 high [facility] CBC W Auto Differential panel - Blood platelets 92 x10e3/uL 150 - 379 02/28/2017 low [facility] CBC W Auto Differential panel - Blood neutrophils 72 % not estab. 02/28/2017 [facility] CBC W Auto Differential panel - Blood lymphs 17 % not estab. 02/28/2017 [facility] CBC W Auto Differential panel - Blood monocytes 8 % not estab. 02/28/2017 [facility] CBC W Auto Differential panel - Blood eos 3 % not estab. 02/28/2017 [facility] CBC W Auto Differential panel - Blood basos 0 % not estab. 02/28/2017 [facility] CBC W Auto Differential panel - Blood immature cells comment 02/28/2017 [facility] CBC W Auto Differential panel - Blood neutrophils (absolute) 3.7 x10e3/uL 1.4 - 7.0 02/28/2017 [facility] CBC W Auto Differential panel - Blood lymphs (absolute) 0.9 x10e3/uL 0.7 - 3.1 02/28/2017 [facility] CBC W Auto Differential panel - Blood monocytes(absolute) 0.4 x10e3/uL 0.1 - 0.9 02/28/2017 [facility] CBC W Auto Differential panel - Blood eos (absolute) 0.1 x10e3/uL 0.0 - 0.4 02/28/2017 [facility] CBC W Auto Differential panel - Blood baso (absolute) 0.0 x10e3/uL 0.0 - 0.2 02/28/2017 [facility] CBC W Auto Differential panel - Blood immature granulocytes 0 % not estab. 02/28/2017 [facility] CBC W Auto Differential panel - Blood immature grans (abs) 0.0 x10e3/uL 0.0 - 0.1 02/28/2017 [facility] CBC W Auto Differential panel - Blood hematology comments: note: 02/28/2017 [facility] Comprehensive metabolic 1999 panel - Serum or Plasma glucose, serum 92 mg/dL 65 - 99 02/28/2017 [facility] Comprehensive metabolic 1999 panel - Serum or Plasma BUN 44 mg/dL 8 - 27 02/28/[address] [place] Comprehensive metabolic 1999 panel - Serum or Plasma creatinine, serum 1.46 mg/dL 0.76 - 1.27 02/28/[address] [place] Comprehensive metabolic 1999 panel - Serum or Plasma eGFR if nonafricn AM 49 mL/min/1.73 >59 02/28/2017 [facility] Comprehensive metabolic 1999 panel - Serum or Plasma eGFR if africn AM 57 mL/min/1.73 >59 02/28/2017 [facility] Comprehensive metabolic 1999 panel - Serum or Plasma BUN/creatinine ratio 30 10 - 24 02/28/[address] [place] Comprehensive metabolic 1999 panel - Serum or Plasma sodium, serum 145 mmol/L 134 - 144 02/28/[address] [place] Comprehensive metabolic 1999 panel - Serum or Plasma potassium, serum 3.3 mmol/L 3.5 - 5.2 02/28/2017 [facility] Comprehensive metabolic 1999 panel - Serum or Plasma chloride, serum 102 mmol/L 96 - 106 02/28/2017 [facility] Comprehensive metabolic 1999 panel - Serum or Plasma carbon dioxide, total 24 mmol/L 18 - 29 02/28/2017 [facility] Comprehensive metabolic 1999 panel - Serum or Plasma calcium, serum 8.9 mg/dL 8.6 - 10.2 02/28/2017 [facility] metabolic 1999 panel - Serum or Plasma protein, total, serum 7.2 g/dL 6.0 - 8.5 02/28/2017 [facility] metabolic 1999 panel - Serum or Plasma albumin, serum 4.0 g/dL 3.6 - 4.8 02/28/2017 [facility] metabolic 1999 panel - Serum or Plasma globulin, total 3.2 g/dL 1.5 - 4.5 02/28/2017 [facility] metabolic 1999 panel - Serum or Plasma A/G ratio 1.3 1.2 - 2.2 02/28/2017 [facility] metabolic 1999 panel - Serum or Plasma bilirubin, total 1.5 mg/dL 0.0 - 1.2 02/28/2017 [facility] metabolic 1999 panel - Serum or Plasma alkaline phosphatase, S 163 IU/L 39 - 117 02/28/2017 [facility] metabolic 1999 panel - Serum or Plasma AST (SGOT) 24 IU/L 0 - 40 02/28/2017 [facility] metabolic 1999 panel - Serum or Plasma ALT (SGPT) 26 IU/L 0 - 44 02/28/2017 [facility] Hemoglobin A1c/Hemoglobin.total in Blood hemoglobin A1C 6.1 % 4.8 - 5.6 02/28/[address] [place] Hemoglobin A1c/Hemoglobin.total in Blood estim. avg glu (EAG) 128 mg/dL 02/28/2017 [facility] Hepatitis C virus RNA [Units/volume] (viral load) in Serum or Plasma by Probe and target amplification method HCV Ab <0.1 0.0 - 0.9 02/28/2017 [facility] Hepatitis C virus RNA [Units/volume] (viral load) in Serum or Plasma by Probe and target amplification method comment: comment 02/28/2017 [facility] Lipid 1995 panel - Serum or Plasma cholesterol, total 133 mg/dL 100 - 199 02/28/2017 [facility] Lipid 1995 panel - Serum or Plasma triglycerides 49 mg/dL 0 - 149 02/28/2017 [facility] Lipid 1995 panel - Serum or Plasma HDL cholesterol 42 mg/dL >39 02/28/2017 [facility] Lipid 1995 panel - Serum or Plasma VLDL cholesterol riky 10 mg/dL 5 - 40 02/28/2017 [facility] Lipid 1995 panel - Serum or Plasma LDL cholesterol calc 81 mg/dL 0 - 99 02/28/2017 [facility] Prostate specific Ag [Mass/volume] in Serum or Plasma prostate specific Ag, serum 2.5 NG/mL 0.0 - 4.0 02/28/2017 [facility] Thyrotropin [Units/volume] in Serum or Plasma TSH 3.370 uIU/mL 0.450 - 4.500 02/28/2017 [facility] Vital Signs Vital Sign Value Date Comments Source Diastolic (mm Hg) 64 06/21/2018 [facility] Height 75 06/21/2018 [facility] Systolic (mm Hg) 136 06/21/2018 [facility] Weight 187.6 06/21/2018 [facility] Diastolic (mm Hg) 80 06/01/2018 [facility] Height 75 06/01/2018 [facility] Systolic (mm Hg) 130 06/01/2018 [facility] Weight 198 06/01/2018 [facility] Diastolic (mm Hg) 70 07/13/2017 [facility] Height 75 07/13/2017 [facility] Systolic (mm Hg) 108 07/13/2017 [facility] Weight 177 07/13/2017 [facility] Diastolic (mm Hg) 80 02/27/2017 [facility] Height 75 02/27/2017 [facility] Systolic (mm Hg) 130 02/27/2017 [facility] Weight 188 02/27/2017 [facility] Diastolic (mm Hg) 62 01/19/2017 [facility] Height 75 01/19/2017 [facility] Systolic (mm Hg) 120 01/19/2017 [facility] Weight 176 01/19/2017 [facility] Encounters Location Location Details Encounter Type Encounter Number Reason For Visit Attending Provider ADM Date DC Date Status Source [place] - [facility] - [facility]Mari Rendon MD: [address], [address], [place] [address], Ph. [id number] Hany Rendon 01/19/2017 [facility] - [facility]-Mari Mike Jr, MD: [address], [address], [place] [address], Ph. [id number] Bar Mike Jr 02/27/2017 [facility] - [facility] Aby Wells: [address], [address], [place] [address], Ph. [id number] Aby Wells 06/13/2017 [facility]: [address] [facility] [address] [facility], [address], [place] [address], Ph. [id number] Bar Mike Jr 06/19/2017 [facility] - [facility] Aby Wells: [address], [address], [place] [address], Ph. [id number] Abyvaleriy Finn 06/27/2017 [facility], MD: [address] [facility], [address], [place] [address], Ph. [id number] Bar Mike Jr 07/13/2017 [facility] - [facility] Dylan Moran MD: [address], [address], [place] [id number], Ph. [id number] Dylan Moran 06/01/2018 [facility] Dylan Moran MD: [address], [address], [place] [address], Ph. [id number] Dylan Moran 06/01/2018 [facility] Dylan Moran MD: [address], [address], [place] [address], Ph. [id number] Dylan Moran 06/21/2018 [facility] Procedures Procedure Code Date Perfomer Comments Source ULTRASOUND OF SCROTUM AND CONTENTS [id number] 06/01/2018 [facility] US, ABDOMINAL COMPLETE [id number] 06/19/2017 [facility] electrocardiogram 02/27/2017 [facility] electrocardiogram 01/19/2017 [facility] Repair of Right Inguinal Hernia 10/23/2016 [facility] Tte W/doppler Complete [id number] 01/04/2016 [facility] Colonoscopy 04/03/2007 [facility] Hernia Repair [facility] Pacemaker [facility]
--- OUTSIDE RECORDS SUMMARY | 2018-08-25 22:16 | XMS REPORT ---
Author Organization Unknown Address [address] [place] [id number] Phone [phone] Care Team Providers Care Supervisor Vendor Quality Name Role Phone TREY CONNORS MD 31 [phone] DANNY GONZALEZ MD 122 [phone] Allergies Code Code System Name Reaction Severity Status Onset NKDA Medications Name Status Start Date Stop Date Acetaminophen-Codeine #3 300 mg-30 mg tablet Take 1 tablet every 6 hours by oral route for 10 days. Active Not available atorvastatin 40 mg tablet Take 1 tablet every day by oral route for 90 days. Active Not available bacitracin 500 unit/gram eye ointment Completed 06/19/2017 ciprofloxacin 500 mg tablet Completed 07/13/2017 clopidogrel 75 mg tablet Take 1 tablet every day by oral route for 90 days. Active Not available Eliquis 5 mg tablet Take 1 tablet every day by oral route for 90 days. Active Not available Entresto 49 mg-51 mg tablet Take 1 tablet twice a day by oral route for 90 days. Completed 07/13/2017 furosemide 20 mg tablet Completed 06/19/2017 furosemide 40 mg tablet Active Not available honey 100 % topical paste Apply 1 application every day by topical route for 90 days. Active Not available losartan 25 mg tablet Take 1 tablet every day by oral route for 90 days. Active Not available metolazone 2.5 mg tablet Completed 06/19/2017 metolazone 5 mg tablet Completed 06/19/2017 metoprolol succinate ER 25 mg tablet,extended release 24 hr Take 0.5 tablets every day by oral route for 90 days. Active Not available metoprolol tartrate 50 mg tablet Completed 07/13/2017 omeprazole 40 mg capsule,delayed release Take 1 capsule every day by oral route for 90 days. Active Not available potassium chloride ER 20 mEq tablet,extended release Take 1 tablet every day by oral route for 90 days. Completed 07/13/2017 potassium chloride ER 20 mEq tablet,extended release(part/cryst) Completed 06/19/2017 prednisolone acetate 1 % eye drops,suspension Completed 06/19/2017 spironolactone 25 mg tablet Take 1 tablet every day by oral route for 90 days. Active Not available Problems Name Status Onset Date Source Hypertensive Heart Disease with Congestive Heart Failure Active 01/19/2017 Chronic Atrial Fibrillation Active 01/19/2017 Congestive Heart Failure Unknown 01/19/2017 Congestive Heart Failure Active 01/19/2017 Chronic Systolic Heart Failure Active 01/19/2017 Cardiac Cirrhosis Active 01/19/2017 At Risk for Falls Active 01/19/2017 Cardiac Pacemaker in Situ Active 01/19/2017 Anemia Active 06/19/2017 Thrombocytopenic Disorder Active 06/19/2017 Essential Hypertension Active 06/19/2017 Peripheral Vascular Disease Active 06/19/2017 Ascites Active 06/19/2017 History of Cerebrovascular Accident Active 06/19/2017 Procedures Date Name Performed by Hernia Repair Information not available Pacemaker Information not available 01/19/[address] [id number] (Work Place) 02/27/[address] [phone] (Work Place) 06/19/2017 US, Abdomen [facility] 1 [address] [facility] [address] [place] [address] (Work Place) Lab Results Date Name Specimen Result Interpretation Description Value Range Status Address 02/27/2017 HbA1C (Hemoglobin a1C), Blood High Hemoglobin a1C 6.1 % 4.8-5.6 % Final [facility]: [address] [place] [address] Estim. Avg Glu (EAG) 128 mg/dL Final [facility]: [address] 02/27/2017 CMP, Serum or Plasma Glucose, Serum 92 mg/dL 65-99 mg/dL Final [facility]: [address] High Bun 44 mg/dL 8-27 mg/dL Final [facility]: [address] [place] [address] High Creatinine, Serum 1.46 mg/dL 0.76-1.27 mg/dL Final [facility]: [address] Low eGFR If Nonafricn AM 49 mL/min/1.73 >59 mL/min/1.73 Final [facility]: [address] [place] [address], [place] Low eGFR If Africn AM 57 mL/min/1.73 >59 mL/min/1.73 Final [facility]: [address], [place] High BUN/creatinine Ratio 30 10-24 Final [facility]: [address], [place] High Sodium, Serum 145 mmol/L 134-144 mmol/L Final [facility]: [address], [place] Low Potassium, Serum 3.3 mmol/L 3.5-5.2 mmol/L Final [facility]: [address], [place] Chloride, Serum 102 mmol/L 96-106 mmol/L Final [facility]: [address] [place] [address], [place] Carbon Dioxide, Total 24 mmol/L 18-29 mmol/L Final [facility]: [address] [place] [address] Calcium, Serum 8.9 mg/dL 8.6-10.2 mg/dL Final [facility]: [address] [facility], [place] Protein, Total, Serum 7.2 g/dL 6.0-8.5 g/dL Final [facility]: [address] [place] [address], [place] Albumin, Serum 4.0 g/dL 3.6-4.8 g/dL Final [facility]: [address] [place] [address], [place] Globulin, Total 3.2 g/dL 1.5-4.5 g/dL Final [facility]: [address] A/g Ratio 1.3 1.2-2.2 Final [facility]: [address] High Bilirubin, Total 1.5 mg/dL 0.0-1.2 mg/dL Final [facility]: [address] High Alkaline Phosphatase, S 163 IU/L 39-117 IU/L Final [facility]: [address] [place] [address] Ast (Sgot) 24 IU/L 0-40 IU/L Final [facility]: [address] Alt (Sgpt) 26 IU/L 0-44 IU/L Final [facility]: [address] [place] 02/27/2017 CBC W/ Auto Diff Wbc 5.1 x10e3/uL 3.4-10.8 x10e3/uL Final [facility] [address] [facility] [facility] R[facility] 4.51 x10e6/uL 4.14-5.80 x10e6/uL Final [facility]: [address] [facility] Hemoglobin 13.3 g/dL 12.6-17.7 g/dL Final [facility]: [address] [place] [address] Hematocrit 41.1 % 37.5-51.0 % Final [facility]: [address] [place] [address] Mcv 91 fL 79-97 fL Final [facility]: [address] [place] [address] Mch 29.5 pg 26.6-33.0 pg Final [facility]: [address] [place] [address] Mchc 32.4 g/dL 31.5-35.7 g/dL Final [facility]: [address] [place] [address] High Rdw 15.5 % 12.3-15.4 % Final [facility]: [address] [place] [address] Low Platelets 92 x10e3/uL 150-379 x10e3/uL Final [facility]: [address] [place] [address] Neutrophils 72 % not estab. % Final [facility]: [address] Lymphs 17 % not estab. % Final [facility]: [address] [place] [address] Monocytes 8 % not estab. % Final [facility]: [address] [place] [address] Eos 3 % not estab. % Final [facility]: [address] Basos 0 % not estab. % Final [facility]: [address] Immature Cells comment Cancelled [facility]: [address] Neutrophils (Absolute) 3.7 x10e3/uL 1.4-7.0 x10e3/uL Final [facility]: [address] Lymphs (Absolute) 0.9 x10e3/uL 0.7-3.1 x10e3/uL Final [facility]: [address] Monocytes(absolute) 0.4 x10e3/uL 0.1-0.9 x10e3/uL Final [facility]: [address] Eos (Absolute) 0.1 x10e3/uL 0.0-0.4 x10e3/uL Final [facility]: [address] Baso (Absolute) 0.0 x10e3/uL 0.0-0.2 x10e3/uL Final [facility]: [address] [place] [address] Immature Granulocytes 0 % not estab. % Final [facility]: [address] [place] [address] Immature Grans (Abs) 0.0 x10e3/uL 0.0-0.1 x10e3/uL Final [facility]: [address] [place] [address] Hematology Comments: note: Final [facility]: [address] [place] [address] 02/27/2017 Hepatitis C Virus RNA, Quant, PCR, Serum or Plasma HCV Ab <0.1 s/co ratio 0.0-0.9 s/co ratio Final [facility]: [address] [place] [address] 02/27/2017 Lipid Panel, Serum Cholesterol, Total 133 mg/dL 100-199 mg/dL Final [facility]: [address] [place] [address] Triglycerides 49 mg/dL 0-149 mg/dL Final [facility]: [address] HDL Cholesterol 42 mg/dL >39 mg/dL Final [facility]: [address] VLDL Cholesterol Qamar 10 mg/dL 5-40 mg/dL Final [facility]: [address] LDL Cholesterol Calc 81 mg/dL 0-99 mg/dL Final [facility]: [address] [place] [address] 02/27/2017 PSA, Serum or Plasma Prostate Specific Ag, Serum 2.5 NG/mL 0.0-4.0 NG/mL Final [facility]: [address] [place] [address] 02/27/2017 TSH, Serum or Plasma Tsh 3.370 uIU/mL 0.450-4.500 uIU/mL Final [facility]: [address] [place] [address], [place] 02/27/2017 Hepatitis C Virus RNA, Quant, PCR, Serum or Plasma Comment: comment Final [facility]: [address] [facility] [address], [place] Electrocardiogram Rate & Rhythm 54 [facility]: [address] [place] [address], [place] Qrs 286 [facility]: [address], [place] [address] Interval 152 [facility]: [address] [place] [address], [place] QRS Duration 286 [facility]: [address] [place] [address], [place] QT Interval 558 [facility]: [address] [place] [address], [place] Electrocardiogram Rate & Rhythm afib - chronic [facility]: [address] [place] [address], [place] Qrs [facility]: [address], [place] CT Interval [facility]: [address] [place], [place] QRS Duration [facility]: [address] [place] [address], [place] QT Interval [facility]: [address] [place], [place] Past Encounters 07/13/2017 Cirrhosis of Liver; Ascites; Hypertensive Heart Disease with Congestive Heart Failure; Systolic Dysfunction; Peripheral Vascular Disease; Left Inguinal Hernia; Hospital Patient Bar Mike Jr, MD: [address] [facility] [address] [address], Ph. 06/27/2017 Aby Finn: [address], [address] [address], Ph. 06/19/2017 Essential Hypertension; Peripheral Vascular Disease; History of Cerebrovascular Accident; Cardiac Cirrhosis; Chronic Systolic Heart Failure; Chronic Atrial Fibrillation; Ascites; Cirrhosis of Liver; Thrombocytopenic Disorder Bar Mike Jr, MD: [address], [facility] [address] [address], Ph. 06/13/2017 Aby Finn: [address], [address], [place] [address], Ph. 02/27/2017 Hypertensive Heart Disease with Congestive Heart Failure; Chronic Systolic Heart Failure; Chronic Atrial Fibrillation; Cardiac Pacemaker in Situ; Literacy Problems; Administrative Reason for Encounter; Unsteady Gait; At Risk for Falls Bar Mike Jr, MD: [address], [place] [address], Ph. 01/19/2017 Hypertensive Heart Disease with Congestive Heart Failure; Congestive Heart Failure; Cardiac Pacemaker in Situ; Chronic Systolic Heart Failure; Cardiac Cirrhosis; Adult Health Examination; Diabetes Mellitus Screening; Hepatitis C Screening; Screening for Malignant Neoplasm of Prostate; Body Mass Index 20-24 - Normal; Eye Disorder Screening; Screening for Malignant Neoplasm of Colon; Advance Directive Discussed with Patient; Depression Screening; At Risk for Falls; Immunization Hany Rendon MD: [address], [place] [address], Ph. Social History Smoking Status Never Smoker Vaccine List Vaccine Type influenza, high dose seasonal 01/19/20170.5 mL pneumococcal conjugate PCV 13 10/05/20160.5 mL zoster 0.65 mL Plan of Care Patient Instructions Please follow up with your doctor in two weeks. Follow up with any specialists that we discussed during your visit today. If you need help getting your medications filled, our [facility] can sync medication refills, deliver within a 10 mile radius, or [employer] [facility] overnight at no additional cost. Please watch for warning symptoms that may occur: *fever *redness/oozing at surgical site *shortness of breath *uncontrolled pain *unexpected weight gain/loss *high or low blood pressure *chest pain *confusion *any other health concerns Call us at if you experience these symptoms. Evening and Saturday clinic hours are available if you have problems. If you have problems after hours, you can reach the [facility] physician secretary board of commissioners at . It was good to see you in the office today for your Medicare Annual Wellness Visit. You have been provided some information on healthy nutrition, including a diet rich in fruits and vegetables, minimizing simple carbohydrates, salt, and saturated fats. I want to encourage regular cardiovascular exercise such as walking at least 30 minutes daily, 5 times per week. Please remember to schedule any preventive health measures that we talked about today. You have also been provided education on fall prevention and community- based lifestyle interventions to help reduce health risks and promote healthy living in your [employer] folder. Screening Recommendations 1. Vaccines Pneumococcal: discussed today and information sent with patient in their [facility] health folder Influenza: Recommended today Shingles: Recommended today Tetanus: discussed today and information sent with patient in their [facility] health folder 2. Prostate Screening: Ordered 3. Colorectal cancer Screening Colonoscopy: discussed today and information sent with patient in their [facility] health folder Fecal Occult Blood: Recommended today 4. Bone Mass Measurement: discussed today 5. Eye Exam Screening: Recommended today 6. Cholesterol Screening: Ordered 7. Diabetes Screening: Ordered Reminders Provider Appointments None recorded. Lab None recorded. Referral None recorded. Procedures None recorded. Surgeries None recorded. Imaging None recorded. Vitals 07/13/2017 03:15PM Est Patient Height Weight BMI Blood Pressure 6 ft 3 in 177 lbs 22.1 kg/m2 108/70 mm[Hg] 02/27/2017 11:15AM Work In Same Day Height Weight BMI Blood Pressure 6 ft 3 in 188 lbs 23.5 kg/m2 (1) 134/80 mm[Hg] (2) 130/80 mm[Hg] 01/19/2017 10:45AM New Patient Height Weight BMI Blood Pressure 6 ft 3 in 176 lbs 22 kg/m2 120/62 mm[Hg]
--- OUTSIDE RECORDS SUMMARY | 2018-08-25 22:16 | XMS REPORT | Clinical Summary ---
Author Author MARY [facility] Organization [facility] Address Unknown Phone Unavailable Care Team Providers Care Concierge Receptionist Name Role Phone Cj Thayer Unavailable Allergies No Known Allergies Medications End Date Status Medication Sig Dispensed Refills Start Date Active omeprazole (PRILOSEC) 40 Take 40 mg by 0 MG capsule mouth daily. Active apixaban (ELIQUIS) 5 mg Take 5 mg by 0 Tab tablet mouth daily. Active metoprolol (TOPROL-XL) 25 Take 0.5 30 tablet 0 MG 24 hr tablet tablets (12.5 8 mg total) by mouth daily Note change in dose. Active atorvastatin (LIPITOR) 40 Take 1 tablet 30 tablet 0 07/01/201 MG tablet (40 mg total) 8 by mouth nightly For cholesterol. Active spironolactone Take 1 tablet 30 tablet 0 (ALDACTONE) 25 MG tablet (25 mg total) 8 by mouth daily For your heart. Active losartan (COZAAR) 25 MG Take 1 tablet 30 tablet 0 tablet (25 mg total) 8 by mouth daily For your heart. Active ciprofloxacin HCl (CIPRO) Take 1 tablet 30 tablet 0 500 MG tablet (500 mg 8 total) by mouth daily To prevent infection in the fluid in your abdomen. Active torsemide (DEMADEX) 20 MG TAKE 2 270 tablet 0 tablet TABLETS(40MG) 8 EVERY MORNING AND 1 TABLET EVERY EVENING Active ferrous sulfate 325 (65 TAKE 1 90 tablet 0 FE) MG tablet TABLET(324 8 MG) BY MOUTH DAILY WITH BREAKFAST 09/29/2017 clopidogrel (PLAVIX) 75 Take 1 tablet 90 tablet 0 mg tablet (75 mg total) 8 by mouth daily for 90 days For circulation. 10/25/2017 Discontinued ferrous sulfate 324 mg Take 1 tablet 90 tablet 0 (65 mg iron) TbEC (324 mg 8 total) by mouth daily with breakfast for 90 days. 07/20/2018 potassium chloride SA Take 1 tablet 0 (K-DUR,KLOR-CON) 20 MEQ (20 mEq 8 tablet total) by mouth daily. Active Problems Problem Noted Date Ascites 06/22/2017 Cirrhosis 06/22/2017 Slow transit constipation 06/22/2017 Inguinal hernia 06/22/2017 PVD (peripheral vascular disease) 06/22/2017 Chronic systolic heart failure 06/21/2017 Essential hypertension 06/21/2017 Atrial fibrillation 06/21/2017 Encounters Care Team Description Date Type Specialty Katarzyna Sheikh NP 10/25/2017 Refill Cardiology after 08/24/2017 Social History Date Tobacco Use Types Packs/Day Years Used Quit: 02/09/1975 Former Smoker 1.5 25 Smokeless Tobacco: Never Used Alcohol Use Drinks/Week oz/Week Comments No Sex Assigned at Date Recorded Not on file Industry Job Start Date Occupation Not on file Not on file Not on file Travel End Travel History Travel Start No recent travel history available. Last Filed Vital Signs Not on file Plan of Treatment Not on file Implants Device Identifier Shelf Expiration Date Model / Serial / Lot Implanted Type Area Manufactur er 05/31/2019 / / [id number] Mynxgrip Vascular Closure Device Cardiovasc Right: Groin CARDINAL Implanted: Qty: 1 on 06/24/2017 by Miki Cummins MD 04/02/2018 [id number] / / [id number] Device Clsr Angio-Seal Vip 6fr Cardiovasc N/A: Groin ST SUSHIL [id number] - [id number] [place] MED:CARDIA Implanted: Qty: 1 on 06/30/2017 by Kleber Garner MD Results Not on fileafter 08/24/2017 Insurance Payer Benefit Subscriber ID Type Phone Address Plan / Group [facility] [employer]/MEDIC xxxxxxxxx MEDICARE MGD CARE ARE COMPLETE Advance Directives For more information, please contact: [place] [id number] [place] [address] Date Inactivated Comments Code Status Date Activated 07/01/2017 4:11 PM Full Code 06/21/2017 7:38 AM This code status was determined by: Patient 12/14/2016 6:24 PM Full Code 12/10/2016 4:45 PM This code status was determined by: Patient
--- OUTSIDE RECORDS SUMMARY | 2018-08-25 22:17 | XMS REPORT ---
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 Allergies, Adverse Reactions, Alerts This patient has no known allergies or adverse reactions. Medications This patient has no known medications. Encounters Start Date/Time End Date/Time Encounter Type Admission Type Attending Clinicians Care Facility Care Department Encounter ID 2018-08-06 11:58:00 2018-08-04 02:39:00 Inpatient E [id number] Results Test Description Test Time Test Comments Text Results Atomic Results Result Comments B-TYPE NATRIURETIC FACTOR (BNP) 2017-07-20 15:37:00 B-TYPE NATRIURETIC PEPTIDE (BEAKER) (test ruaj=195) 2141 pg/mL 0-100 [id number] 15:31:00* Test Item Value Reference Range Comments MAGNESIUM (BEAKER) (test pybj=336) 1.7 mg/dL 1.6-2.6 BASIC METABOLIC [id number] 15:31:00* Test Item Value Reference Range Comments SODIUM (BEAKER) (test alfg=292) 141 meq/L 136-145 POTASSIUM (BEAKER) (test vvwd=036) 3.5 meq/L 3.5-5.1 CHLORIDE (BEAKER) (test oxok=806) 109 meq/L 98-107 CO2 (BEAKER) (test pjji=830) 22 meq/L 22-29 BLOOD UREA NITROGEN (BEAKER) (test ucwz=878) 24 mg/dL 7-21 CREATININE (BEAKER) (test oefs=048) 1.02 mg/dL 0.57-1.25 GLUCOSE RANDOM (BEAKER) (test vlvh=059) 78 mg/dL 70-105 CALCIUM (BEAKER) (test bdkg=020) 8.8 mg/dL 8.4-10.2 EGFR (BEAKER) (test yctb=8260) 88 mL/min/1.73 sq m ESTIMATED GFR IS NOT ACCURATE CREATININE CLEARANCE IN PREDICTING GLOMERULAR FILTRATION RATE. ESTIMATED GFR IS NOT APPLICABLE FOR DIALYSIS PATIENTS. IMMUNOFIXATION ELECTROPHORESIS (SLEIN)2017-07-03 16:05:00* Test Item Value Reference Range Comments IMMUNOGLOBULIN G (IGG) (BEAKER) (test eyjk=360) 2133 mg/dL 540-1822 IMMUNOGLOBULIN A (IGA) (BEAKER) (test cmsp=478) 376 mg/dL 63-484 IMMUNOGLOBULIN M (IGM) (BEAKER) (test drwf=986) 53 mg/dL 22-293 SERUM SELIN ID (BEAKER) (test lpuh=5163) IgA-lambda, monoclonal (Note: Majority of immunoglobulin present is polyclonal in distribution; the monoclonal protein is of very low concentration.) [id number] (BEAKER) (test ajyo=6570) Sigrid Mar MD (electronic signature) HEMOGLOBIN AND [id number] 11:18:00* Test Item Value Reference Range Comments HEMOGLOBIN (BEAKER) (test wovv=545) 10.6 GM/DL 13.7-17.5 HEMATOCRIT (BEAKER) (test ipvv=948) 33.0 % 40.1-51.0 PROTHROMBIN [id number] 07:46:00* Test Item Value Reference Range Comments PROTIME (BEAKER) (test szsp=397) 16.5 seconds 11.7-14.7 INR (BEAKER) (test lmvk=607) 1.3 <=5.9 RECOMMENDED COUMADIN/WARFARIN INR THERAPY RANGESSTANDARD DOSE: 2.0 - 3.0 Inclu matilda: PROPHYLAXIS for venous thrombosis, systemic embolization; TREATMENT for bell ous thrombosis and/or pulmonary embolus.HIGH RISK: Target INR is 2.5-3.5 for pat ients with mechanical heart valves.BASIC METABOLIC [id number] 07:42:00* Test Item Value Reference Range Comments SODIUM (BEAKER) (test qlng=916) 135 meq/L 136-145 POTASSIUM (BEAKER) (test jbmg=527) 4.6 meq/L 3.5-5.1 CHLORIDE (BEAKER) (test xjds=816) 104 meq/L 98-107 CO2 (BEAKER) (test mijf=302) 25 meq/L 22-29 BLOOD UREA NITROGEN (BEAKER) (test dnwm=637) 20 mg/dL 7-21 CREATININE (BEAKER) (test ubcg=681) 1.00 mg/dL 0.57-1.25 GLUCOSE RANDOM (BEAKER) (test pruv=400) 84 mg/dL 70-105 CALCIUM (BEAKER) (test xjzu=898) 8.6 mg/dL 8.4-10.2 EGFR (BEAKER) (test qtws=7694) 90 mL/min/1.73 sq m ESTIMATED GFR IS NOT ACCURATE CREATININE CLEARANCE IN PREDICTING GLOMERULAR FILTRATION RATE. ESTIMATED GFR IS NOT APPLICABLE FOR DIALYSIS PATIENTS. CBC (HEMOGRAM ONLY)2017-07-01 07:26:00* Test Item Value Reference Range Comments WHITE BLOOD CELL COUNT (BEAKER) (test fjji=552) 5.6 K/ L 3.5-10.5 RED BLOOD CELL COUNT (BEAKER) (test egdx=206) 3.37 M/ L 4.63-6.08 HEMOGLOBIN (BEAKER) (test rile=674) 9.8 GM/DL 13.7-17.5 HEMATOCRIT (BEAKER) (test ghwj=030) 29.7 % 40.1-51.0 MEAN CORPUSCULAR VOLUME (BEAKER) (test zbzd=074) 88.1 fL 79.0-92.2 MEAN CORPUSCULAR HEMOGLOBIN (BEAKER) (test hqtv=671) 29.1 pg 25.7-32.2 MEAN CORPUSCULAR HEMOGLOBIN CONC (BEAKER) (test idyr=112) 33.0 GM/DL 32.3-36.5 RED CELL DISTRIBUTION WIDTH (BEAKER) (test fqfq=349) 15.9 % 11.6-14.4 PLATELET COUNT (BEAKER) (test oagr=054) 140 K/CU MM 150-450 MEAN PLATELET VOLUME (BEAKER) (test tzam=439) 12.7 fL 9.4-12.4 NUCLEATED RED BLOOD CELLS (BEAKER) (test dauv=087) 0 /100 WBC 0-0 BASIC METABOLIC [id number] 05:57:00* Test Item Value Reference Range Comments SODIUM (BEAKER) (test vnmx=982) 132 meq/L 136-145 POTASSIUM (BEAKER) (test enpz=775) 4.6 meq/L 3.5-5.1 CHLORIDE (BEAKER) (test ggxu=332) 102 meq/L 98-107 CO2 (BEAKER) (test albm=646) 22 meq/L 22-29 BLOOD UREA NITROGEN (BEAKER) (test tfix=460) 15 mg/dL 7-21 CREATININE (BEAKER) (test rjwf=753) 1.04 mg/dL 0.57-1.25 GLUCOSE RANDOM (BEAKER) (test vrpr=290) 89 mg/dL 70-105 CALCIUM (BEAKER) (test dsqp=559) 9.1 mg/dL 8.4-10.2 EGFR (BEAKER) (test rcdf=6975) 86 mL/min/1.73 sq m ESTIMATED GFR IS NOT ACCURATE CREATININE CLEARANCE IN PREDICTING GLOMERULAR FILTRATION RATE. ESTIMATED GFR IS NOT APPLICABLE FOR DIALYSIS PATIENTS. CBC (HEMOGRAM ONLY)2017-06-30 05:09:00* Test Item Value Reference Range Comments WHITE BLOOD CELL COUNT (BEAKER) (test xglp=926) 4.9 K/ L 3.5-10.5 RED BLOOD CELL COUNT (BEAKER) (test qktu=838) 3.85 M/ L 4.63-6.08 HEMOGLOBIN (BEAKER) (test ehik=991) 11.2 GM/DL 13.7-17.5 HEMATOCRIT (BEAKER) (test chkd=292) 33.9 % 40.1-51.0 MEAN CORPUSCULAR VOLUME (BEAKER) (test pvea=298) 88.1 fL 79.0-92.2 MEAN CORPUSCULAR HEMOGLOBIN (BEAKER) (test noxv=757) 29.1 pg 25.7-32.2 MEAN CORPUSCULAR HEMOGLOBIN CONC (BEAKER) (test sjok=450) 33.0 GM/DL 32.3-36.5 RED CELL DISTRIBUTION WIDTH (BEAKER) (test xftm=925) 16.2 % 11.6-14.4 PLATELET COUNT (BEAKER) (test cxbd=584) 184 K/CU MM 150-450 MEAN PLATELET VOLUME (BEAKER) (test uupz=966) 12.5 fL 9.4-12.4 NUCLEATED RED BLOOD CELLS (BEAKER) (test rgbe=337) 0 /100 WBC 0-0 HEPATIC FUNCTION [id number] 05:33:00* Test Item Value Reference Range Comments TOTAL PROTEIN (BEAKER) (test esro=206) 6.5 gm/dL 6.0-8.3 ALBUMIN (BEAKER) (test xjhn=4261) 3.4 g/dL 3.5-5.0 BILIRUBIN TOTAL (BEAKER) (test cuip=558) 0.8 mg/dL 0.2-1.2 BILIRUBIN DIRECT (BEAKER) (test kvnz=272) 0.5 mg/dL 0.1-0.5 ALKALINE PHOSPHATASE (BEAKER) (test bbvl=761) 116 U/L 40-150 AST (SGOT) (BEAKER) (test slxc=211) 31 U/L 5-34 ALT (SGPT) (BEAKER) (test grsh=731) 17 U/L 6-55 BASIC METABOLIC [id number] 05:33:00* Test Item Value Reference Range Comments SODIUM (BEAKER) (test voch=633) 137 meq/L 136-145 POTASSIUM (BEAKER) (test xwut=910) 4.3 meq/L 3.5-5.1 CHLORIDE (BEAKER) (test ofta=597) 104 meq/L 98-107 CO2 (BEAKER) (test uqfn=319) 26 meq/L 22-29 BLOOD UREA NITROGEN (BEAKER) (test jals=773) 15 mg/dL 7-21 CREATININE (BEAKER) (test gynm=938) 1.01 mg/dL 0.57-1.25 GLUCOSE RANDOM (BEAKER) (test bubh=915) 92 mg/dL 70-105 CALCIUM (BEAKER) (test xwkn=006) 8.7 mg/dL 8.4-10.2 EGFR (BEAKER) (test jeup=3504) 89 mL/min/1.73 sq m ESTIMATED GFR IS NOT ACCURATE CREATININE CLEARANCE IN PREDICTING GLOMERULAR FILTRATION RATE. ESTIMATED GFR IS NOT APPLICABLE FOR DIALYSIS PATIENTS. PROTHROMBIN TIME/[id number] 05:12:00* Test Item Value Reference Range Comments PROTIME (BEAKER) (test shgi=714) 17.2 seconds 11.7-14.7 INR (BEAKER) (test faju=442) 1.4 <=5.9 RECOMMENDED COUMADIN/WARFARIN INR THERAPY RANGESSTANDARD DOSE: 2.0 - 3.0 Inclu matilda: PROPHYLAXIS for venous thrombosis, systemic embolization; TREATMENT for bell ous thrombosis and/or pulmonary embolus.HIGH RISK: Target INR is 2.5-3.5 for pat ients with mechanical heart valves.BASIC METABOLIC [id number] 06:21:00* Test Item Value Reference Range Comments SODIUM (BEAKER) (test sqwi=646) 136 meq/L 136-145 POTASSIUM (BEAKER) (test xgzn=340) 4.0 meq/L 3.5-5.1 CHLORIDE (BEAKER) (test ibqw=660) 103 meq/L 98-107 CO2 (BEAKER) (test vztc=810) 22 meq/L 22-29 BLOOD UREA NITROGEN (BEAKER) (test ggij=429) 18 mg/dL 7-21 CREATININE (BEAKER) (test rdym=111) 1.10 mg/dL 0.57-1.25 GLUCOSE RANDOM (BEAKER) (test rqvz=218) 103 mg/dL 70-105 CALCIUM (BEAKER) (test hmqp=651) 9.1 mg/dL 8.4-10.2 EGFR (BEAKER) (test ruuq=2469) 81 mL/min/1.73 sq m ESTIMATED GFR IS NOT ACCURATE CREATININE CLEARANCE IN PREDICTING GLOMERULAR FILTRATION RATE. ESTIMATED GFR IS NOT APPLICABLE FOR DIALYSIS PATIENTS. CBC (HEMOGRAM ONLY)2017-06-28 05:45:00* Test Item Value Reference Range Comments WHITE BLOOD CELL COUNT (BEAKER) (test khbt=039) 4.8 K/ L 3.5-10.5 RED BLOOD CELL COUNT (BEAKER) (test hrcc=829) 3.43 M/ L 4.63-6.08 HEMOGLOBIN (BEAKER) (test meqv=507) 10.0 GM/DL 13.7-17.5 HEMATOCRIT (BEAKER) (test nqpp=951) 29.9 % 40.1-51.0 MEAN CORPUSCULAR VOLUME (BEAKER) (test xvkw=616) 87.2 fL 79.0-92.2 MEAN CORPUSCULAR HEMOGLOBIN (BEAKER) (test jcfp=710) 29.2 pg 25.7-32.2 MEAN CORPUSCULAR HEMOGLOBIN CONC (BEAKER) (test mscg=385) 33.4 GM/DL 32.3-36.5 RED CELL DISTRIBUTION WIDTH (BEAKER) (test fzmi=774) 16.1 % 11.6-14.4 PLATELET COUNT (BEAKER) (test vifn=923) 169 K/CU MM 150-450 MEAN PLATELET VOLUME (BEAKER) (test uesp=737) 12.5 fL 9.4-12.4 NUCLEATED RED BLOOD CELLS (BEAKER) (test shoa=739) 0 /100 WBC 0-0 BODY FLUID CULTURE + GRAM [id number] 07:58:00* Test Item Value Reference Range Comments CULTURE (BEAKER) (test sizw=0127) No growth GRAM STAIN RESULT (BEAKER) (test jbdj=2877) No WBCs GRAM STAIN RESULT (BEAKER) (test vbuc=05105) No organisms seen POCT-GLUCOSE [id number] 07:55:00* Test Item Value Reference Range Comments POC-GLUCOSE METER (BEAKER) (test puax=7501) 97 mg/dL 70-110 TESTED AT [facility] [address] [facility] [address] BASIC METABOLIC [id number] 04:07:00* Test Item Value Reference Range Comments SODIUM (BEAKER) (test nmkb=967) 136 meq/L 136-145 POTASSIUM (BEAKER) (test lpsc=429) 4.1 meq/L 3.5-5.1 CHLORIDE (BEAKER) (test pqdv=294) 101 meq/L 98-107 CO2 (BEAKER) (test hoxk=637) 27 meq/L 22-29 BLOOD UREA NITROGEN (BEAKER) (test wrlr=077) 19 mg/dL 7-21 CREATININE (BEAKER) (test inol=496) 0.96 mg/dL 0.57-1.25 GLUCOSE RANDOM (BEAKER) (test bxwo=664) 70 mg/dL 70-105 CALCIUM (BEAKER) (test hcjj=026) 8.5 mg/dL 8.4-10.2 EGFR (BEAKER) (test bweo=7100) 95 mL/min/1.73 sq m ESTIMATED GFR IS NOT ACCURATE CREATININE CLEARANCE IN PREDICTING GLOMERULAR FILTRATION RATE. ESTIMATED GFR IS NOT APPLICABLE FOR DIALYSIS PATIENTS. CBC (HEMOGRAM ONLY)2017-06-27 03:59:00* Test Item Value Reference Range Comments WHITE BLOOD CELL COUNT (BEAKER) (test pgpc=717) 3.7 K/ L 3.5-10.5 RED BLOOD CELL COUNT (BEAKER) (test gvrv=203) 3.25 M/ L 4.63-6.08 HEMOGLOBIN (BEAKER) (test zvcc=885) 9.5 GM/DL 13.7-17.5 HEMATOCRIT (BEAKER) (test pgfi=056) 28.5 % 40.1-51.0 MEAN CORPUSCULAR VOLUME (BEAKER) (test pkko=981) 87.7 fL 79.0-92.2 MEAN CORPUSCULAR HEMOGLOBIN (BEAKER) (test ynnv=685) 29.2 pg 25.7-32.2 MEAN CORPUSCULAR HEMOGLOBIN CONC (BEAKER) (test xkhi=512) 33.3 GM/DL 32.3-36.5 RED CELL DISTRIBUTION WIDTH (BEAKER) (test dokv=288) 15.9 % 11.6-14.4 PLATELET COUNT (BEAKER) (test nhue=968) 161 K/CU MM 150-450 MEAN PLATELET VOLUME (BEAKER) (test vfpl=015) 12.4 fL 9.4-12.4 NUCLEATED RED BLOOD CELLS (BEAKER) (test ztzu=223) 0 /100 WBC 0-0 HEPATIC FUNCTION [id number] 05:45:00* Test Item Value Reference Range Comments TOTAL PROTEIN (BEAKER) (test zkez=549) 6.3 gm/dL 6.0-8.3 ALBUMIN (BEAKER) (test ctal=2677) 3.2 g/dL 3.5-5.0 BILIRUBIN TOTAL (BEAKER) (test czpo=290) 1.0 mg/dL 0.2-1.2 BILIRUBIN DIRECT (BEAKER) (test jsub=530) 0.7 mg/dL 0.1-0.5 ALKALINE PHOSPHATASE (BEAKER) (test gycc=392) 119 U/L 40-150 AST (SGOT) (BEAKER) (test wvmo=035) 17 U/L 5-34 ALT (SGPT) (BEAKER) (test bjzi=919) 11 U/L 6-55 BASIC METABOLIC [id number] 05:45:00* Test Item Value Reference Range Comments SODIUM (BEAKER) (test mncb=778) 134 meq/L 136-145 POTASSIUM (BEAKER) (test lkkf=592) 3.8 meq/L 3.5-5.1 CHLORIDE (BEAKER) (test pgmd=954) 97 meq/L 98-107 CO2 (BEAKER) (test bxpb=301) 28 meq/L 22-29 BLOOD UREA NITROGEN (BEAKER) (test ekpq=730) 25 mg/dL 7-21 CREATININE (BEAKER) (test qqfs=239) 1.18 mg/dL 0.57-1.25 GLUCOSE RANDOM (BEAKER) (test jjno=319) 89 mg/dL 70-105 CALCIUM (BEAKER) (test aexu=889) 8.3 mg/dL 8.4-10.2 EGFR (BEAKER) (test xegj=5202) 75 mL/min/1.73 sq m ESTIMATED GFR IS NOT ACCURATE CREATININE CLEARANCE IN PREDICTING GLOMERULAR FILTRATION RATE. ESTIMATED GFR IS NOT APPLICABLE FOR DIALYSIS PATIENTS. HEPATIC FUNCTION [id number] 05:52:00* Test Item Value Reference Range Comments TOTAL PROTEIN (BEAKER) (test icwm=879) 6.2 gm/dL 6.0-8.3 ALBUMIN (BEAKER) (test zbmk=5653) 3.0 g/dL 3.5-5.0 BILIRUBIN TOTAL (BEAKER) (test fbqm=194) 1.3 mg/dL 0.2-1.2 BILIRUBIN DIRECT (BEAKER) (test wfqo=131) 0.9 mg/dL 0.1-0.5 ALKALINE PHOSPHATASE (BEAKER) (test ycla=934) 118 U/L 40-150 AST (SGOT) (BEAKER) (test cvxg=476) 17 U/L 5-34 ALT (SGPT) (BEAKER) (test jfcv=359) 10 U/L 6-55 BASIC METABOLIC [id number] 05:52:00* Test Item Value Reference Range Comments SODIUM (BEAKER) (test mqpi=806) 136 meq/L 136-145 POTASSIUM (BEAKER) (test xqec=709) 3.6 meq/L 3.5-5.1 CHLORIDE (BEAKER) (test tfng=368) 98 meq/L 98-107 CO2 (BEAKER) (test uirz=443) 29 meq/L 22-29 BLOOD UREA NITROGEN (BEAKER) (test sjpf=203) 27 mg/dL 7-21 CREATININE (BEAKER) (test qysm=321) 1.23 mg/dL 0.57-1.25 GLUCOSE RANDOM (BEAKER) (test lfal=947) 78 mg/dL 70-105 CALCIUM (BEAKER) (test sobc=420) 8.2 mg/dL 8.4-10.2 EGFR (BEAKER) (test kadb=2117) 71 mL/min/1.73 sq m ESTIMATED GFR IS NOT ACCURATE CREATININE CLEARANCE IN PREDICTING GLOMERULAR FILTRATION RATE. ESTIMATED GFR IS NOT APPLICABLE FOR DIALYSIS PATIENTS. CBC W/PLT COUNT & AUTO [id number] 04:45:00* Test Item Value Reference Range Comments WHITE BLOOD CELL COUNT (BEAKER) (test xtbh=178) 4.4 K/ L 3.5-10.5 RED BLOOD CELL COUNT (BEAKER) (test danp=879) 3.41 M/ L 4.63-6.08 HEMOGLOBIN (BEAKER) (test jigb=952) 10.0 GM/DL 13.7-17.5 HEMATOCRIT (BEAKER) (test rykh=398) 29.4 % 40.1-51.0 MEAN CORPUSCULAR VOLUME (BEAKER) (test jftx=459) 86.2 fL 79.0-92.2 MEAN CORPUSCULAR HEMOGLOBIN (BEAKER) (test lobm=390) 29.3 pg 25.7-32.2 MEAN CORPUSCULAR HEMOGLOBIN CONC (BEAKER) (test zdji=241) 34.0 GM/DL 32.3-36.5 RED CELL DISTRIBUTION WIDTH (BEAKER) (test ngzb=182) 16.2 % 11.6-14.4 PLATELET COUNT (BEAKER) (test aqrz=380) 154 K/CU MM 150-450 MEAN PLATELET VOLUME (BEAKER) (test lcyy=795) 13.1 fL 9.4-12.4 NUCLEATED RED BLOOD CELLS (BEAKER) (test doqa=465) 0 /100 WBC 0-0 NEUTROPHILS RELATIVE PERCENT (BEAKER) (test hoim=434) 73 % LYMPHOCYTES RELATIVE PERCENT (BEAKER) (test saqm=707) 10 % MONOCYTES RELATIVE PERCENT (BEAKER) (test rwag=667) 12 % EOSINOPHILS RELATIVE PERCENT (BEAKER) (test iytu=690) 5 % BASOPHILS RELATIVE PERCENT (BEAKER) (test nhsb=239) 0 % NEUTROPHILS ABSOLUTE COUNT (BEAKER) (test kocp=434) 3.21 K/ L 1.78-5.38 LYMPHOCYTES ABSOLUTE COUNT (BEAKER) (test iizr=807) 0.43 K/ L 1.32-3.57 MONOCYTES ABSOLUTE COUNT (BEAKER) (test vvro=213) 0.52 K/ L 0.30-0.82 EOSINOPHILS ABSOLUTE COUNT (BEAKER) (test ieaa=846) 0.22 K/ L 0.04-0.54 BASOPHILS ABSOLUTE COUNT (BEAKER) (test iqrj=457) 0.01 K/ L 0.01-0.08 IMMATURE GRANULOCYTES-RELATIVE PERCENT (BEAKER) (test uzyi=0293) 1 % 0-1 BODY FLUID CELL COUNT WITH [id number] 18:28:00* Test Item Value Reference Range Comments APPEARANCE FLUID (BEAKER) (test viji=705) Bloody Clear COLOR FLUID (BEAKER) (test nxhx=119) Red Colorless, Straw RBC FLUID (BEAKER) (test viiw=616457) 3065019 /cu mm <=1 ADJUSTED WBC FLUID (BEAKER) (test ogvj=0841) 1726 /cu mm <=5 LINING CELLS (BEAKER) (test vdzo=5292) 17 /cu mm <=1 NEUTROPHILS FLUID (BEAKER) (test eoyb=2424) 61 % LYMPHS FLUID (BEAKER) (test nzbk=519) 7 % MONO/MACROPHAGE FLUID (BEAKER) (test hnvv=067) 32 % EOSINOPHILS FLUID (BEAKER) (test vovc=589) 0 % BASO FLUID (BEAKER) (test acqa=903) 0 % CONTAINER BODY FLUID (BEAKER) (test bdkl=0726) EDTA Tube ALBUMIN, BODY [id number] 18:19:00* Test Item Value Reference Range Comments ALBUMIN FLUID (BEAKER) (test rzmk=432) 2.3 gm/dL Reference Range: No Normals Assay performance has not been validated for this type of specimen.PROTEIN, BODY [id number] 18:19:00* Test Item Value Reference Range Comments PROTEIN FLUID (BEAKER) (test osxu=734) 4.2 g/dL Absence of reference range indicates that normals have not been defined.Assay pe rformance has not been validated for this type of specimen.U/S, PARACENTESIS 2017-06-24 17:58:00Reason for exam:->Diagnostic and therapeuticFINAL REPORT Ultrasound-guided paracentesis. Clinical History: Ascites Informed consent was obtained from the patient and the risks of the procedure were explained including bleeding, infection, bowel perforation and visceral injury. Sedation: 1% Xylocaine was used as local sedation. Conscious sedation protocol was not utilized as no systemic analgesia was administered. Technique: Using sterile technique, ultrasound guidance and a 5 Hungarian coaxial needle, a single pass right lower quadrant paracentesis was performed. The inner needle was removed and the plastic catheter was left in place and connected through sterile tubing to an evacuated container. The procedure yielded 4100 cc of thin bloody fluid. The catheter was then removed. No immediate complications devel oped. Labs were sent as requested. Estimated blood loss: None Patient dispositio n: The patient was asymptomatic at the end of the exam. Impression: Successful p aracentesis yielding 4100 cc of fluid Signed: Jorge Luis Greene MDReport Verified Date/Time: 06/24/2017 17:58:52 Reading Location: [facility] [id number] Ortho Consult [facility] 05:5 8 PM ANTI-NUCLEAR ANTIBODY (GLENN)2017-06-24 13:54:00* Test Item Value Reference Range Comments ANTI-NUCLEAR ANTIBODY (GLENN) (BEAKER) (test vojn=988) Positive Negative GLENN TITER AND [id number] 13:54:00* Test Item Value Reference Range Comments GLENN TITER (BEAKER) (test hnot=2598) :160 GLENN PATTERN (BEAKER) (test gzdp=1116) Homogeneous HEPATIC FUNCTION [id number] 05:34:00* Test Item Value Reference Range Comments TOTAL PROTEIN (BEAKER) (test nwaw=858) 6.5 gm/dL 6.0-8.3 ALBUMIN (BEAKER) (test jrsf=6681) 3.1 g/dL 3.5-5.0 BILIRUBIN TOTAL (BEAKER) (test hazo=368) 1.6 mg/dL 0.2-1.2 BILIRUBIN DIRECT (BEAKER) (test nnyh=333) 1.1 mg/dL 0.1-0.5 ALKALINE PHOSPHATASE (BEAKER) (test bvau=603) 127 U/L 40-150 AST (SGOT) (BEAKER) (test fcbv=036) 16 U/L 5-34 ALT (SGPT) (BEAKER) (test dzoe=174) 10 U/L 6-55 BASIC METABOLIC [id number] 05:34:00* Test Item Value Reference Range Comments SODIUM (BEAKER) (test mvha=120) 139 meq/L 136-145 POTASSIUM (BEAKER) (test gprj=108) 3.7 meq/L 3.5-5.1 CHLORIDE (BEAKER) (test geiy=214) 97 meq/L 98-107 CO2 (BEAKER) (test ixgs=253) 31 meq/L 22-29 BLOOD UREA NITROGEN (BEAKER) (test jvle=933) 24 mg/dL 7-21 CREATININE (BEAKER) (test iuch=633) 1.65 mg/dL 0.57-1.25 GLUCOSE RANDOM (BEAKER) (test hnif=917) 105 mg/dL 70-105 CALCIUM (BEAKER) (test kybo=220) 8.6 mg/dL 8.4-10.2 EGFR (BEAKER) (test tdhd=5964) 51 mL/min/1.73 sq m ESTIMATED GFR IS NOT ACCURATE CREATININE CLEARANCE IN PREDICTING GLOMERULAR FILTRATION RATE. ESTIMATED GFR IS NOT APPLICABLE FOR DIALYSIS PATIENTS. PROTHROMBIN TIME/[id number] 05:07:00* Test Item Value Reference Range Comments PROTIME (BEAKER) (test kvyt=924) 19.8 seconds 11.7-14.7 INR (BEAKER) (test ylnf=337) 1.7 <=5.9 RECOMMENDED COUMADIN/WARFARIN INR THERAPY RANGESSTANDARD DOSE: 2.0 - 3.0 Inclu matilda: PROPHYLAXIS for venous thrombosis, systemic embolization; TREATMENT for bell ous thrombosis and/or pulmonary embolus.HIGH RISK: Target INR is 2.5-3.5 for pat ients with mechanical heart valves.CBC (HEMOGRAM ONLY)2017-06-24 04:56:00* Test Item Value Reference Range Comments WHITE BLOOD CELL COUNT (BEAKER) (test mlcu=308) 6.9 K/ L 3.5-10.5 RED BLOOD CELL COUNT (BEAKER) (test kmuo=240) 3.85 M/ L 4.63-6.08 HEMOGLOBIN (BEAKER) (test bcqv=353) 11.2 GM/DL 13.7-17.5 HEMATOCRIT (BEAKER) (test updp=757) 34.0 % 40.1-51.0 MEAN CORPUSCULAR VOLUME (BEAKER) (test cifd=624) 88.3 fL 79.0-92.2 MEAN CORPUSCULAR HEMOGLOBIN (BEAKER) (test jfzn=938) 29.1 pg 25.7-32.2 MEAN CORPUSCULAR HEMOGLOBIN CONC (BEAKER) (test mfoy=803) 32.9 GM/DL 32.3-36.5 RED CELL DISTRIBUTION WIDTH (BEAKER) (test itsf=036) 16.4 % 11.6-14.4 PLATELET COUNT (BEAKER) (test erzd=057) 185 K/CU MM 150-450 MEAN PLATELET VOLUME (BEAKER) (test ylvg=445) 13.3 fL 9.4-12.4 NUCLEATED RED BLOOD CELLS (BEAKER) (test gnst=848) 0 /100 WBC 0-0 PET, CARDIAC PERFUSION MULTIPLE STUDIES, REST AND [id number] 15:47:00 Reason for exam:->chest painReason for exam:->cardiomyopathyFINAL REPORT PROCEDURE: Rest/Stress MYOCARDIAL PERFUSION PET with regadenoson\XA9\ CPT CODE: 26842 INDICATION: Chest pain HISTORY: Cardiac risk factors: Hypertension, hyperlipidemia, tobacco, stroke. Other cardiovascular history: Cardiomyopathy, atrial fibrillation. Recent cardiac symptoms: Chest pain. Current cardiovascular-related medications: A spirin, Lasix, metoprolol, spironolactone, Entresto. PROTOCOL: Limited low- dose CT imaging was performed for attenuation correction. 40.0 mCi of Rb-82 chlo ride was injected iv at rest, and gated PET (positron emission tomography) image s were obtained. Subsequently, 40.0 mCi of Rb-82 chloride was injected iv at exp ected peak pharmacologic effect, and gated PET images were obtained. PRELIMINAR Y STRESS TEST DATA FROM NONINVASIVE CARDIOLOGY: Pharmacologic stress was by 10- second iv infusion of 0.4 mg of regadenoson. Radiotracer was injected 30 seconds after start of stress. Heart rate was 68 beats/min at rest and 74 beats/min (48% of MPHR) at tracer injection. BP was 116/68 mmHg at rest and 116/70 mmHg at tr acer injection. Stress was stopped for predetermined endpoint. The patient exper ienced no symptoms; treatment was not required. Preliminary ECG evaluation revea led atrial fibrillation with nonspecific interventricular conduction delay at re st and no ischemic changes with stress. (Final ECG interpretation and other stre ss and monitoring data are reported separately by Cardiology.) IMAGING FINDINGS : Study quality is good. Images obtained after stress injection show decr eased radiotracer uptake in the mid to apical inferior, and apical segments of t he LV. Resting images show decreased radiotracer uptake in the mid to apical inf erior, and apical segments of the LV. LV volume appears increased. RV volume gideon ears increased. Gated images obtained immediately after stress show akinetic api riky segments and otherwise hypokinetic LV wall motion. Gated images obtained at rest show akinetic apical segments otherwise hypokinetic LV wall motion. LVEF at rest is 32%. LVEF at stress is 38%. IMPRESSION: 1. Abnormal study. 2. Approp riate pharmacologic stress. 3. Abnormal myocardial perfusion. There is a moder ate severity, large size, mostly fixed, perfusion defect in the mid to apical in ferior and apical segments of the LV. 4. Markedly decreased resting LV function . No deterioration of function is noted with pharmacologic stress. 5. Extracard iac tracer distribution is normal. 6. No previous [facility] study for comparison. NONINVASIVE RISK STRATIFICATION: The above findings are considered high risk (> 3% annual mortality rate) based on the following criteria: - Severe resting left ventricular dysfunction (LVEF 35%) Signed: Jose P[place] Verified Date /Time: 06/23/2017 15:47:38 Reading Location: [place] [id number] Reading Room P M URINE PROTEIN ELECTROPHORESIS, [id number] 12:11:00* Test Item Value Reference Range Comments PROTEIN, URINE (BEAKER) (test ecqs=0753) < mg/dL 0-14 ALBUMIN URINE ELP (BEAKER) (test rdoe=6582) 23.9 % GAMMA GLOBULIN URINE (BEAKER) (test bgsa=6719) 76.1 % UPEP, ID-438 (BEAKER) (test sais=6834) No monoclonal bands detected. [id number] (BEAKER) (test nqzt=5728) Sigrid Mar MD (electronic signature) PROTEIN ELECTROPHORESIS, [id number] 12:09:00* Test Item Value Reference Range Comments ALBUMIN FRACTION (BEAKER) (test bfpr=967) 3.1 g/dL 3.5-5.5 ALPHA 1 FRACTION (BEAKER) (test udwm=578) 0.3 g/dL 0.2-0.4 ALPHA 2 FRACTION (BEAKER) (test rarp=443) 0.5 g/dL 0.5-0.9 BETA FRACTION (BEAKER) (test vrbt=251) 1.1 g/dL 0.6-1.1 GAMMA GLOBULIN FRACTION (BEAKER) (test pbhd=195) 1.8 g/dL 0.7-1.7 INTERPRETATION-119 (BEAKER) (test jyvx=9913) Slight polyclonal elevation of gamma globulins, consistent with hepatic dysfunction. Serum SELIN ordered to exclude presence of small band underlying polyclonal region. [id number] (BEAKER) (test qvbt=9108) Sigrid Mar MD (electronic signature) PROTEIN TOTAL SERUM, SPEP (BEAKER) (test tvzx=0336) 6.8 gm/dL 6.0-8.3 [id number] 06:25:00* Test Item Value Reference Range Comments PHOSPHORUS (BEAKER) (test hjft=094) 4.1 mg/dL 2.3-4.7 [id number] 06:25:00* Test Item Value Reference Range Comments MAGNESIUM (BEAKER) (test fbfi=433) 1.6 mg/dL 1.6-2.6 BASIC METABOLIC [id number] 06:25:00* Test Item Value Reference Range Comments SODIUM (BEAKER) (test kfpg=705) 137 meq/L 136-145 POTASSIUM (BEAKER) (test lfsb=448) 3.7 meq/L 3.5-5.1 CHLORIDE (BEAKER) (test fpgf=293) 100 meq/L 98-107 CO2 (BEAKER) (test ohwj=305) 25 meq/L 22-29 BLOOD UREA NITROGEN (BEAKER) (test ydji=468) 21 mg/dL 7-21 CREATININE (BEAKER) (test oiuw=838) 1.14 mg/dL 0.57-1.25 GLUCOSE RANDOM (BEAKER) (test pltx=396) 90 mg/dL 70-105 CALCIUM (BEAKER) (test uaoj=037) 8.9 mg/dL 8.4-10.2 EGFR (BEAKER) (test vaxa=2220) 78 mL/min/1.73 sq m ESTIMATED GFR IS NOT ACCURATE CREATININE CLEARANCE IN PREDICTING GLOMERULAR FILTRATION RATE. ESTIMATED GFR IS NOT APPLICABLE FOR DIALYSIS PATIENTS. HEPATIC FUNCTION [id number] 06:25:00* Test Item Value Reference Range Comments TOTAL PROTEIN (BEAKER) (test rjgm=422) 7.0 gm/dL 6.0-8.3 ALBUMIN (BEAKER) (test onhf=6088) 3.3 g/dL 3.5-5.0 BILIRUBIN TOTAL (BEAKER) (test jirt=206) 1.8 mg/dL 0.2-1.2 BILIRUBIN DIRECT (BEAKER) (test esal=145) 1.2 mg/dL 0.1-0.5 ALKALINE PHOSPHATASE (BEAKER) (test wfxv=955) 141 U/L 40-150 AST (SGOT) (BEAKER) (test jctu=761) 18 U/L 5-34 ALT (SGPT) (BEAKER) (test glcc=393) 13 U/L 6-55 CBC W/PLT COUNT & AUTO [id number] 05:41:00* Test Item Value Reference Range Comments WHITE BLOOD CELL COUNT (BEAKER) (test dblf=859) 7.8 K/ L 3.5-10.5 RED BLOOD CELL COUNT (BEAKER) (test yhmn=379) 4.37 M/ L 4.63-6.08 HEMOGLOBIN (BEAKER) (test ocmo=852) 12.8 GM/DL 13.7-17.5 HEMATOCRIT (BEAKER) (test glff=473) 37.6 % 40.1-51.0 MEAN CORPUSCULAR VOLUME (BEAKER) (test jelx=016) 86.0 fL 79.0-92.2 MEAN CORPUSCULAR HEMOGLOBIN (BEAKER) (test kyrz=631) 29.3 pg 25.7-32.2 MEAN CORPUSCULAR HEMOGLOBIN CONC (BEAKER) (test fckn=656) 34.0 GM/DL 32.3-36.5 RED CELL DISTRIBUTION WIDTH (BEAKER) (test zpyt=353) 16.2 % 11.6-14.4 PLATELET COUNT (BEAKER) (test cuqs=570) 200 K/CU MM 150-450 MEAN PLATELET VOLUME (BEAKER) (test bfld=854) 13.5 fL 9.4-12.4 NUCLEATED RED BLOOD CELLS (BEAKER) (test vulb=595) 0 /100 WBC 0-0 NEUTROPHILS RELATIVE PERCENT (BEAKER) (test gbcs=259) 84 % LYMPHOCYTES RELATIVE PERCENT (BEAKER) (test rccu=335) 5 % MONOCYTES RELATIVE PERCENT (BEAKER) (test iksp=001) 8 % EOSINOPHILS RELATIVE PERCENT (BEAKER) (test kmwi=128) 2 % BASOPHILS RELATIVE PERCENT (BEAKER) (test xnyh=539) 0 % NEUTROPHILS ABSOLUTE COUNT (BEAKER) (test jloh=841) 6.60 K/ L 1.78-5.38 LYMPHOCYTES ABSOLUTE COUNT (BEAKER) (test ejed=153) 0.36 K/ L 1.32-3.57 MONOCYTES ABSOLUTE COUNT (BEAKER) (test zydj=759) 0.65 K/ L 0.30-0.82 EOSINOPHILS ABSOLUTE COUNT (BEAKER) (test kkyy=247) 0.15 K/ L 0.04-0.54 BASOPHILS ABSOLUTE COUNT (BEAKER) (test fidb=943) 0.03 K/ L 0.01-0.08 IMMATURE GRANULOCYTES-RELATIVE PERCENT (BEAKER) (test fuxe=1673) 0 % 0-1 HEMOGLOBIN [id number] 06:33:00* Test Item Value Reference Range Comments HEMOGLOBIN A1C (BEAKER) (test pyor=610) 5.8 % 4.3-6.1 HEPATITIS A ANTIBODY, [id number] 06:26:00* Test Item Value Reference Range Comments HEPATITIS A IGG ANTIBODY (BEAKER) (test jfzf=4697) Reactive Nonreactive HEPATITIS B SURFACE [id number] 06:26:00* Test Item Value Reference Range Comments HEPATITIS B SURFACE ANTIBODY (BEAKER) (test uvoh=829) < mIU/mL <8.0 [id number] 06:18:00* Test Item Value Reference Range Comments FERRITIN (BEAKER) (test bunm=536) 178 ng/mL 5-275 HEPATITIS C [id number] 06:18:00* Test Item Value Reference Range Comments HEPATITIS C ANTIBODY (BEAKER) (test srnd=574) Nonreactive Nonreactive HEPATITIS B SURFACE [id number] 06:15:00* Test Item Value Reference Range Comments HEPATITIS B SURFACE ANTIGEN (2) (BEAKER) (test knvm=9322) Nonreactive Nonreactive HEPATITIS B CORE ANTIBODY, [id number] 06:15:00* Test Item Value Reference Range Comments HEPATITIS B CORE TOTAL ANTIBODY (BEAKER) (test tzza=644) Nonreactive Nonreactive IRON, TIBC, % SAT. (WITHOUT FERRITIN)2017-06-22 05:54:00* Test Item Value Reference Range Comments IRON (BEAKER) (test ncjf=191) 43 ug/dL 40-160 TOTAL IRON BINDING CAPACITY (BEAKER) (test tvdj=444) 304 ug/dL 250-450 IRON % SATURATION (2) (BEAKER) (test qwrt=6765) 14 % 20-55 [id number] 05:40:00* Test Item Value Reference Range Comments ALPHA-1 ANTITRYPSIN (BEAKER) (test qyby=049) 205.10 mg/dL 90.00-200.00 [id number] 05:39:00* Test Item Value Reference Range Comments PHOSPHORUS (BEAKER) (test doji=214) 4.2 mg/dL 2.3-4.7 [id number] 05:39:00* Test Item Value Reference Range Comments MAGNESIUM (BEAKER) (test wjnn=342) 1.7 mg/dL 1.6-2.6 BASIC METABOLIC [id number] 05:39:00* Test Item Value Reference Range Comments SODIUM (BEAKER) (test mlib=179) 133 meq/L 136-145 POTASSIUM (BEAKER) (test vwfo=131) 3.1 meq/L 3.5-5.1 CHLORIDE (BEAKER) (test upkp=996) 98 meq/L 98-107 CO2 (BEAKER) (test kcxi=398) 26 meq/L 22-29 BLOOD UREA NITROGEN (BEAKER) (test xgmb=486) 24 mg/dL 7-21 CREATININE (BEAKER) (test ymvw=027) 1.18 mg/dL 0.57-1.25 GLUCOSE RANDOM (BEAKER) (test uyhv=457) 100 mg/dL 70-105 CALCIUM (BEAKER) (test zyec=186) 9.2 mg/dL 8.4-10.2 EGFR (BEAKER) (test zknm=6442) 75 mL/min/1.73 sq m ESTIMATED GFR IS NOT ACCURATE CREATININE CLEARANCE IN PREDICTING GLOMERULAR FILTRATION RATE. ESTIMATED GFR IS NOT APPLICABLE FOR DIALYSIS PATIENTS. HEPATIC FUNCTION [id number] 05:39:00* Test Item Value Reference Range Comments TOTAL PROTEIN (BEAKER) (test slgw=226) 7.0 gm/dL 6.0-8.3 ALBUMIN (BEAKER) (test uidc=4031) 3.5 g/dL 3.5-5.0 BILIRUBIN TOTAL (BEAKER) (test baya=106) 2.0 mg/dL 0.2-1.2 BILIRUBIN DIRECT (BEAKER) (test ezxk=403) 1.4 mg/dL 0.1-0.5 ALKALINE PHOSPHATASE (BEAKER) (test pekm=270) 157 U/L 40-150 AST (SGOT) (BEAKER) (test ymwq=943) 19 U/L 5-34 ALT (SGPT) (BEAKER) (test baek=910) 15 U/L 6-55 [id number] 05:27:00* Test Item Value Reference Range Comments AMMONIA (BEAKER) (test perr=476) 25 mol/L 18-72 CBC W/PLT COUNT & AUTO [id number] 05:20:00* Test Item Value Reference Range Comments WHITE BLOOD CELL COUNT (BEAKER) (test epzw=780) 8.6 K/ L 3.5-10.5 RED BLOOD CELL COUNT (BEAKER) (test wurh=142) 4.50 M/ L 4.63-6.08 HEMOGLOBIN (BEAKER) (test ywoa=797) 13.1 GM/DL 13.7-17.5 HEMATOCRIT (BEAKER) (test xmeu=446) 39.5 % 40.1-51.0 MEAN CORPUSCULAR VOLUME (BEAKER) (test cwhq=547) 87.8 fL 79.0-92.2 MEAN CORPUSCULAR HEMOGLOBIN (BEAKER) (test ioao=604) 29.1 pg 25.7-32.2 MEAN CORPUSCULAR HEMOGLOBIN CONC (BEAKER) (test cted=650) 33.2 GM/DL 32.3-36.5 RED CELL DISTRIBUTION WIDTH (BEAKER) (test uahn=959) 16.3 % 11.6-14.4 PLATELET COUNT (BEAKER) (test xrwo=782) 186 K/CU MM 150-450 MEAN PLATELET VOLUME (BEAKER) (test fcyi=631) 13.6 fL 9.4-12.4 NUCLEATED RED BLOOD CELLS (BEAKER) (test jzwf=642) 0 /100 WBC 0-0 NEUTROPHILS RELATIVE PERCENT (BEAKER) (test octc=357) 89 % LYMPHOCYTES RELATIVE PERCENT (BEAKER) (test eufq=731) 4 % MONOCYTES RELATIVE PERCENT (BEAKER) (test xxfq=344) 5 % EOSINOPHILS RELATIVE PERCENT (BEAKER) (test hrav=105) 1 % BASOPHILS RELATIVE PERCENT (BEAKER) (test bkvj=465) 0 % NEUTROPHILS ABSOLUTE COUNT (BEAKER) (test xgjo=670) 7.65 K/ L 1.78-5.38 LYMPHOCYTES ABSOLUTE COUNT (BEAKER) (test fgwn=138) 0.38 K/ L 1.32-3.57 MONOCYTES ABSOLUTE COUNT (BEAKER) (test vhmo=783) 0.43 K/ L 0.30-0.82 EOSINOPHILS ABSOLUTE COUNT (BEAKER) (test gxqf=502) 0.09 K/ L 0.04-0.54 BASOPHILS ABSOLUTE COUNT (BEAKER) (test aqmj=839) 0.02 K/ L 0.01-0.08 IMMATURE GRANULOCYTES-RELATIVE PERCENT (BEAKER) (test usos=2670) 0 % 0-1 [id number] 00:12:00* Test Item Value Reference Range Comments MAGNESIUM (BEAKER) (test mijr=706) 1.7 mg/dL 1.6-2.6 BASIC METABOLIC [id number] 00:12:00* Test Item Value Reference Range Comments SODIUM (BEAKER) (test exjq=528) 139 meq/L 136-145 POTASSIUM (BEAKER) (test evjk=791) 3.5 meq/L 3.5-5.1 CHLORIDE (BEAKER) (test zzwg=590) 102 meq/L 98-107 CO2 (BEAKER) (test kgrj=319) 25 meq/L 22-29 BLOOD UREA NITROGEN (BEAKER) (test pucf=569) 27 mg/dL 7-21 CREATININE (BEAKER) (test yttt=010) 1.22 mg/dL 0.57-1.25 GLUCOSE RANDOM (BEAKER) (test xqzh=450) 103 mg/dL 70-105 CALCIUM (BEAKER) (test swbz=954) 8.9 mg/dL 8.4-10.2 EGFR (BEAKER) (test rvmf=8715) 72 mL/min/1.73 sq m ESTIMATED GFR IS NOT ACCURATE CREATININE CLEARANCE IN PREDICTING GLOMERULAR FILTRATION RATE. ESTIMATED GFR IS NOT APPLICABLE FOR DIALYSIS PATIENTS. HEPATITIS B SURFACE [id number] 22:25:00* Test Item Value Reference Range Comments HEPATITIS B SURFACE ANTIBODY (BEAKER) (test bzne=413) < mIU/mL <8.0 HEPATITIS PANEL, [id number] 22:23:00* Test Item Value Reference Range Comments HEPATITIS A IGM ANTIBODY (BEAKER) (test cjzm=233) Nonreactive Nonreactive HEPATITIS B CORE IGM ANTIBODY (BEAKER) (test njlb=604) Nonreactive Nonreactive HEPATITIS C ANTIBODY (BEAKER) (test pyez=882) Nonreactive Nonreactive HEPATITIS B SURFACE ANTIGEN (2) (BEAKER) (test mffa=8479) Nonreactive Nonreactive U/S, ABDOMINAL, WITH [id number] 17:51:00Reason for exam:->cirrhosisFINAL REPORT HISTORY : Cirrhosis COMPARISON : 12/13/2016 COMMENT : Complete ultrasound examination of the abdomen with color Doppler and spectral evaluation of the abdominal vasculature was performed. The liver is cir rhotic in morphology measuring 15.4 cm in length along the right midclavicular l ine. No focal hepatic masses are identified. The gallbladder demonstrates nonspe cific wall thickening up to 7 mm. The gallbladder is not distended. There is gal lbladder sludge within the lumen of the gallbladder.. The biliary tract is with in normal limits with the common bile duct measuring 6 mm in maximum diameter. T he pancreas is obscured by bowel gas The spleen is normal in size and echo-textu re measuring 10.8 cm. The right kidney measures 9.0 cm and the left kidney 10.8 cm in maximum size. There is no evidence of cysts, masses, stones or hydronephr osis. There is a moderate amount of abdominal ascites. The caliber of the aorta is within normal limits. The main portal vein demonstrates hepatopedal flow and measures 1.4 cm in diameter with a peak systolic velocity of 0.25 m/s. The left and right portal veins demonstrates hepatopedal and hepatopedal flow respectivel y. No thrombus is identified in the portal veins. The resistive index of the pro per hepatic artery is 0.75 with an acceleration time of 0.04 sec. The resistive index of the right hepatic artery is 0.72 and of the left hepatic artery is 0.74 . The visualized IVC, hepatic, and splenic veins are patent with appropriate di rectional flow. IMPRESSION :1. Cirrhosis with signs of portal hypertension. No f ocal hepatic mass identified on ultrasound.2. Patent hepatic vasculature with no rmal directional flow. Signed: Camden Mcnamara MDReport Verified Date/Time: 17:51:26 Reading Location: [place] [id number] Ultrasound Reading Room Elec tronically signed by: CAMDEN MCNAMARA on 06/21/2017 05:51 PM CREATINE KINASE (CK), TOTAL AND [id number] 13:45:00* Test Item Value Reference Range Comments CREATINE KINASE TOTAL (BEAKER) (test ytcw=690) 50 U/L 29-200 CREATINE KINASE-MB (BEAKER) (test qttq=014) 2.2 ng/mL 0.0-6.6 CREATINE KINASE-MB INDEX (BEAKER) (test igzs=348) 4.4 % CK-MB Reference Range:<6.7 Normal6.7-10.0 Borderline>10.0 Abnormal TROPONIN [id number] 13:45:00* Test Item Value Reference Range Comments TROPONIN I (BEAKER) (test tykb=297) 0.03 ng/mL 0.00-0.03 Troponin I (TnI) levels must be interpreted in the context of the presenting sym ptoms and the clinical findings. Elevated TnI levels indicate myocardial damage, but are not specific for ischemic heart disease. Elevated TnI levels are seen in patients with other cardiac conditions (including myocarditis and congestive h eart failure), and slight TnI elevations occur in patients with other conditions , including sepsis, renal failure, acidosis, acute neurological disease, and per sistent tachyarrhythmia.SEDIMENTATION [id number] 11:10:00* Test Item Value Reference Range Comments SEDIMENTATION RATE, ERYTHROCYTE (BEAKER) (test tkvb=827) 15 mm/HR 0-40 HEPATIC FUNCTION [id number] 10:41:00* Test Item Value Reference Range Comments TOTAL PROTEIN (BEAKER) (test tgfu=011) 6.5 gm/dL 6.0-8.3 ALBUMIN (BEAKER) (test ddjn=3119) 3.2 g/dL 3.5-5.0 BILIRUBIN TOTAL (BEAKER) (test tzuv=171) 1.7 mg/dL 0.2-1.2 BILIRUBIN DIRECT (BEAKER) (test wyks=409) 1.1 mg/dL 0.1-0.5 ALKALINE PHOSPHATASE (BEAKER) (test kwdi=169) 129 U/L 40-150 AST (SGOT) (BEAKER) (test dhji=896) 19 U/L 5-34 ALT (SGPT) (BEAKER) (test fspi=964) 13 U/L 6-55 RAPID DRUG SCREEN, [id number] 09:56:00* Test Item Value Reference Range Comments BARBITURATE URINE (BEAKER) (test cbrr=892) Negative Negative BENZODIAZEPINE SCREEN URINE (BEAKER) (test ozjh=129) Negative Negative COCAINE (METAB.) SCREEN (BEAKER) (test uaph=2145) Negative Negative METHADONE SCREEN (BEAKER) (test bfzp=8856) Negative Negative OPIATE SCREEN URINE (BEAKER) (test juux=751) Negative Negative CANNABINOID SCREEN URINE (BEAKER) (test rsxx=889) Negative Negative AMPH/METHAMPH SCREEN (BEAKER) (test ltcq=4927) Negative Negative PHENCYCLIDINE SCREEN URINE (BEAKER) (test doct=145) Negative Negative OXYCODONE SCREEN URINE (BEAKER) (test twiv=7770) Negative Negative DRUG CUTOFF CONC.Cocaine 300 ng/mL Cannabinoid 50 ng/mL Benzodiazepine 200 ng/mLBarbiturate 200 ng/mLPh encyclidine 25 ng/mLOpiate 300 ng/mLMethadone 300 ng/mLAmphetamine/ 1000 ng/mL MethamphetamineOxycodone 300 ng/mLThis assay provides an unconfirmed qualitative test result for the cli nical management of patients in emergency situations. Chain of custody not maint ained. Some ezip-qej-hpeccti medications, as well as adulterants, may cause inac curate results. Clinical correlation should be applied. A more comprehensive john g screen or confirmation of a detected drug may be performed upon request. TSH/FREE T4 IF [id number] 09:35:00* Test Item Value Reference Range Comments THYROID STIMULATING HORMONE (BEAKER) (test xqgk=864) 2.41 uIU/mL 0.35-4.94 [id number] 09:22:00* Test Item Value Reference Range Comments PHOSPHORUS (BEAKER) (test eqgt=201) 3.6 mg/dL 2.3-4.7 [id number] 09:22:00* Test Item Value Reference Range Comments MAGNESIUM (BEAKER) (test mdyh=167) 1.7 mg/dL 1.6-2.6 BASIC METABOLIC [id number] 09:22:00* Test Item Value Reference Range Comments SODIUM (BEAKER) (test dhjz=094) 141 meq/L 136-145 POTASSIUM (BEAKER) (test witi=131) 3.5 meq/L 3.5-5.1 CHLORIDE (BEAKER) (test igwc=009) 106 meq/L 98-107 CO2 (BEAKER) (test xkih=660) 25 meq/L 22-29 BLOOD UREA NITROGEN (BEAKER) (test ggyf=115) 29 mg/dL 7-21 CREATININE (BEAKER) (test pjom=297) 1.23 mg/dL 0.57-1.25 GLUCOSE RANDOM (BEAKER) (test kqlf=077) 78 mg/dL 70-105 CALCIUM (BEAKER) (test nzyo=711) 8.3 mg/dL 8.4-10.2 EGFR (BEAKER) (test mthq=6186) 71 mL/min/1.73 sq m ESTIMATED GFR IS NOT ACCURATE CREATININE CLEARANCE IN PREDICTING GLOMERULAR FILTRATION RATE. ESTIMATED GFR IS NOT APPLICABLE FOR DIALYSIS PATIENTS. LIPID [id number] 09:22:00* Test Item Value Reference Range Comments TRIGLYCERIDES (BEAKER) (test gxid=659) 48 mg/dL CHOLESTEROL (BEAKER) (test zitk=449) 134 mg/dL HDL CHOLESTEROL (BEAKER) (test yqzq=640) 31 mg/dL LDL CHOLESTEROL CALCULATED (BEAKER) (test xohv=875) 93 mg/dL Triglyceride Reference Range: Low Risk <150 Borderline 150-199 High Risk 200-499 Very High Risk >=500Cholesterol Reference Range: Low Risk <200 Borderline 200-239 High Risk >240HDL Cholesterol Reference Range: Low Risk >=60 High Risk <40LDL Cholesterol Reference Range: Optimal <100 Near Optimal 100-129 Borderline 130-159 High 160-189 Very High >=190 CREATINE KINASE (CK), TOTAL AND [id number] 09:22:00* Test Item Value Reference Range Comments CREATINE KINASE TOTAL (BEAKER) (test wodf=148) 54 U/L 29-200 CREATINE KINASE-MB (BEAKER) (test ixjq=809) 2.5 ng/mL 0.0-6.6 CREATINE KINASE-MB INDEX (BEAKER) (test foqy=787) 4.6 % CK-MB Reference Range:<6.7 Normal6.7-10.0 Borderline>10.0 AbnormalC- REACTIVE [id number] 09:22:00* Test Item Value Reference Range Comments C-REACTIVE PROTEIN (BEAKER) (test sljh=961) 1.08 mg/dL 0.00-0.50 TROPONIN [id number] 09:21:00* Test Item Value Reference Range Comments TROPONIN I (BEAKER) (test umnt=046) 0.03 ng/mL 0.00-0.03 Troponin I (TnI) levels must be interpreted in the context of the presenting sym ptoms and the clinical findings. Elevated TnI levels indicate myocardial damage, but are not specific for ischemic heart disease. Elevated TnI levels are seen in patients with other cardiac conditions (including myocarditis and congestive h eart failure), and slight TnI elevations occur in patients with other conditions , including sepsis, renal failure, acidosis, acute neurological disease, and per sistent tachyarrhythmia.CBC W/PLT COUNT & AUTO [id number] 08:40:00* Test Item Value Reference Range Comments WHITE BLOOD CELL COUNT (BEAKER) (test fknl=207) 5.2 K/ L 3.5-10.5 RED BLOOD CELL COUNT (BEAKER) (test qbsq=792) 3.56 M/ L 4.63-6.08 HEMOGLOBIN (BEAKER) (test kjfa=088) 10.5 GM/DL 13.7-17.5 HEMATOCRIT (BEAKER) (test iudl=197) 31.7 % 40.1-51.0 MEAN CORPUSCULAR VOLUME (BEAKER) (test iykp=990) 89.0 fL 79.0-92.2 MEAN CORPUSCULAR HEMOGLOBIN (BEAKER) (test aajh=886) 29.5 pg 25.7-32.2 MEAN CORPUSCULAR HEMOGLOBIN CONC (BEAKER) (test kcff=057) 33.1 GM/DL 32.3-36.5 RED CELL DISTRIBUTION WIDTH (BEAKER) (test jiwx=332) 16.6 % 11.6-14.4 PLATELET COUNT (BEAKER) (test ldcj=062) 148 K/CU MM 150-450 MEAN PLATELET VOLUME (BEAKER) (test lwvt=539) 12.7 fL 9.4-12.4 NUCLEATED RED BLOOD CELLS (BEAKER) (test dokt=633) 0 /100 WBC 0-0 NEUTROPHILS RELATIVE PERCENT (BEAKER) (test wsxw=658) 71 % LYMPHOCYTES RELATIVE PERCENT (BEAKER) (test wgdl=394) 14 % MONOCYTES RELATIVE PERCENT (BEAKER) (test yvpz=249) 10 % EOSINOPHILS RELATIVE PERCENT (BEAKER) (test hyxe=688) 4 % BASOPHILS RELATIVE PERCENT (BEAKER) (test mygp=961) 0 % NEUTROPHILS ABSOLUTE COUNT (BEAKER) (test lidu=445) 3.70 K/ L 1.78-5.38 LYMPHOCYTES ABSOLUTE COUNT (BEAKER) (test xyyy=591) 0.72 K/ L 1.32-3.57 MONOCYTES ABSOLUTE COUNT (BEAKER) (test gsok=892) 0.54 K/ L 0.30-0.82 EOSINOPHILS ABSOLUTE COUNT (BEAKER) (test untx=777) 0.22 K/ L 0.04-0.54 BASOPHILS ABSOLUTE COUNT (BEAKER) (test mgby=537) 0.02 K/ L 0.01-0.08 IMMATURE GRANULOCYTES-RELATIVE PERCENT (BEAKER) (test gggu=5398) 0 % 0-1 CT, [id number] 23:41:00FINAL REPORT EXAM: CT of the abdomen and pelvis, without contrast CLINICAL HISTORY: Abdominal pain. TECHNIQUE: CT of the abdomen and pelvis was performed without the intravenous administration of contrast. This exam was performed according to our departmental dose optimization program which includes automated exposure control, adjustment of the mA and/or kV according to patient's size and/or use of iterative reconstructive technique. COMPARISON: CT abdomen and pelvis 12/10/16. FINDINGS: Please note study is limited due to lack of intravenous contrast. LOWER CHEST: Small right pleural effusion. Mild cardiomegaly.LIVER: Cirrhotic morphology of the liver.BILE DUCTS: Within normal limits.GALL BLADDER: Mild soft tissue thickening at the gallbladder fundus which may represent adenomyomatosis. No wall thickening, radiopaque stones or pericholecystic f luid.PANCREAS: Within normal limits.SPLEEN: Within normal limits.ADRENALS: Withi n normal limits.KIDNEYS/URETERS: Within normal limits. URINARY BLADDER: Apparent diffuse mural thickening is likely due to under distention.REPRODUCTIVE ORGANS: Within normal limits. BOWEL/MESENTERY: Partially imaged large left inguinal her annette containing nondilated sigmoid colon, fat and ascitic fluid. Sigmoid divertic ulosis without acute diverticulitis. No bowel obstruction or abnormal wall thick ening. Normal appendix.PERITONEUM/RETROPERITONEUM: Moderate abdominal and pelvic ascites. Large coarse calcification in the posterior pelvis, unchanged. No free air or fluid collection. VESSELS: Dense atherosclerotic calcifications of the a amari and branches. Multiple collateral vessels in the mesentery and retroperiton eum. LYMPH NODES: No abdominal or pelvic lymphadenopathy.SOFT TISSUES: Small umb ilical hernia containing ascitic fluid. Small midline upper abdominal ventral he rnia containing ascitic fluid. Mild anasarca.BONES: Generalized osteopenia. Scle rotic focus in the right iliac bone, which may represent a bone island. Stable s mall lucent lesion with central sclerotic focus in the left iliac bone, likely b enign. IMPRESSION:Partially imaged large left inguinal hernia containing nondil ated segment sigmoid colon and ascitic fluid. Sigmoid diverticulosis without acu te diverticulitis. No bowel obstruction.Cirrhosis.Moderate abdominal and pelvic ascites. Small right pleural effusion. Signed: Phil Webbeport Verified D ate/Time: 06/20/2017 23:41:26 Reading Location: [address] 11:4 1 PM RAD, CHEST, 2 [id number] 23:26:00Reason for exam:->sobShould this be performed at the bedside?->NoFINAL REPORT RAD, CHEST, 2 VIEWS INDICATION: sob COMPARISON: None TECHNIQUE: Frontal and lateral views of the chest. FINDINGS: Cardiomegaly.No overt consolidative or congestive change.No acute osseous abnormality. IMPRESSION:No acute cardiopulmonary abnormality. Signed: Radha Sanon MDReport Verified Date/Time: 06/20/2017 23:26:18 Reading Location: [address] Reading Room B-TYPE NATRIURETIC FACTOR (BNP)2017-06-20 23:16:00* Test Item Value Reference Range Comments B-TYPE NATRIURETIC PEPTIDE (BEAKER) (test uldy=988) 3270 pg/mL 0-100 RAPID TROPONIN [id number] 23:15:00* Test Item Value Reference Range Comments RAPID TROPONIN I (BEAKER) (test dnhw=7748) 0.06 ng/mL <0.05 URINALYSIS W/ REFLEX URINE [id number] 23:06:00* Test Item Value Reference Range Comments COLOR (BEAKER) (test npdl=406) Yellow CLARITY (BEAKER) (test ojjn=390) Clear SPECIFIC GRAVITY UA (BEAKER) (test ryft=315) 1.015 1.001-1.035 PH UA (BEAKER) (test jbpw=208) 5.5 5.0-8.0 PROTEIN UA (BEAKER) (test qoph=492) Trace Negative GLUCOSE UA (BEAKER) (test qhwp=791) Negative Negative KETONES UA (BEAKER) (test eppu=995) Negative Negative BILIRUBIN UA (BEAKER) (test wxfv=030) Positive Negative BLOOD UA (BEAKER) (test pzbj=955) Negative Negative NITRITE UA (BEAKER) (test tcst=673) Negative Negative LEUKOCYTE ESTERASE UA (BEAKER) (test dxtc=816) Negative Negative UROBILINOGEN UA (BEAKER) (test wtqh=360) 2.0 mg/dL 0.2-1.0 RBC UA-MANUAL (BEAKER) (test ugbr=3818) <5 /HPF WBC UA-MANUAL (BEAKER) (test jcyr=4418) <5 /HPF SQUAMOUS EPITHELIAL MANUAL (BEAKER) (test ezjk=1391) <5 /HPF SOURCE(BEAKER) (test ubvo=9975) CBC W/PLT COUNT & AUTO [id number] 23:06:00* Test Item Value Reference Range Comments WHITE BLOOD CELL COUNT (BEAKER) (test sduz=840) 6.9 10e3/ L 4.0-10.0 RED BLOOD CELL COUNT (BEAKER) (test jqzj=767) 4.54 10e6/ L 4.20-5.80 HEMOGLOBIN (BEAKER) (test sgoc=095) 13.2 g/dL 13.0-16.8 HEMATOCRIT (BEAKER) (test uobp=813) 40.8 % 40.0-50.0 MEAN CORPUSCULAR VOLUME (BEAKER) (test nrkt=105) 89.9 fL 82.0-98.0 MEAN CORPUSCULAR HEMOGLOBIN (BEAKER) (test sxfw=695) 29.0 pg 27.0-33.0 MEAN CORPUSCULAR HEMOGLOBIN CONC (BEAKER) (test tcat=126) 32.3 g/dL 32.0-36.0 RED CELL DISTRIBUTION WIDTH (BEAKER) (test afsi=902) 13.8 % 10.3-14.2 PLATELET COUNT (BEAKER) (test qzta=917) 199 10e3/ L 150-430 MEAN PLATELET VOLUME (BEAKER) (test rdwo=848) 10.2 fL 6.5-10.5 NEUTROPHILS RELATIVE PERCENT (BEAKER) (test kqmb=555) 67 % LYMPHOCYTES RELATIVE PERCENT (BEAKER) (test jumx=971) 20 % MONOCYTES RELATIVE PERCENT (BEAKER) (test djve=844) 9 % EOSINOPHILS RELATIVE PERCENT (BEAKER) (test kxcy=390) 4 % BASOPHILS RELATIVE PERCENT (BEAKER) (test ijml=689) 1 % NEUTROPHILS ABSOLUTE COUNT (BEAKER) (test kykv=203) 4.61 10e3/ L 1.80-8.00 LYMPHOCYTES ABSOLUTE COUNT (BEAKER) (test goem=230) 1.39 10e3/ L 1.48-4.50 MONOCYTES ABSOLUTE COUNT (BEAKER) (test rgrh=443) 0.58 10e3/ L 0.00-1.30 EOSINOPHILS ABSOLUTE COUNT (BEAKER) (test qlra=512) 0.25 10e3/ L 0.00-0.50 BASOPHILS ABSOLUTE COUNT (BEAKER) (test ykgo=299) 0.03 10e3/ L 0.00-0.20 COMPREHENSIVE METABOLIC [id number] 22:57:00* Test Item Value Reference Range Comments TOTAL PROTEIN (BEAKER) (test ppvu=024) 8.2 gm/dL 6.0-8.5 ALBUMIN (BEAKER) (test sgbl=2972) 3.8 g/dL 3.5-5.0 ALKALINE PHOSPHATASE (BEAKER) (test alxx=753) 160 U/L 30-115 BILIRUBIN TOTAL (BEAKER) (test ycpm=684) 1.9 mg/dL 0.1-1.2 SODIUM (BEAKER) (test lkjm=644) 142 meq/L 135-148 POTASSIUM (BEAKER) (test anpc=997) 4.0 meq/L 3.6-5.5 CHLORIDE (BEAKER) (test mrki=491) 103 meq/L 98-106 CO2 (BEAKER) (test ehmy=140) 26 meq/L 24-32 BLOOD UREA NITROGEN (BEAKER) (test ywql=991) 30 mg/dL 10-26 CREATININE (BEAKER) (test edpu=175) 1.25 mg/dL 0.50-1.20 GLUCOSE RANDOM (BEAKER) (test byhl=247) 83 mg/dL 70-110 CALCIUM (BEAKER) (test ocpb=688) 9.1 mg/dL 8.5-10.5 AST (SGOT) (BEAKER) (test gmcj=605) 28 U/L 5-40 ALT (SGPT) (BEAKER) (test outx=016) 34 U/L 5-50 EGFR (BEAKER) (test tuzz=9276) 70 mL/min/1.73 sq m ESTIMATED GFR IS NOT ACCURATE CREATININE CLEARANCE IN PREDICTING GLOMERULAR FILTRATION RATE. ESTIMATED GFR IS NOT APPLICABLE FOR DIALYSIS PATIENTS. [id number] 22:57:00* Test Item Value Reference Range Comments LIPASE (BEAKER) (test wvvo=306) 23 U/L 40-240 PROTHROMBIN [id number] 22:56:00* Test Item Value Reference Range Comments PROTIME (BEAKER) (test oyav=002) 16.1 seconds 9.8-12.0 INR (BEAKER) (test vpje=473) 1.5 <=5.9 RECOMMENDED COUMADIN/WARFARIN INR THERAPY RANGESSTANDARD DOSE: 2.0 - 3.0 Inclu matilda: PROPHYLAXIS for venous thrombosis, systemic embolization; TREATMENT for bell ous thrombosis and/or pulmonary embolus.HIGH RISK: Target INR is 2.5-3.5 for pat ients with mechanical heart valves.BLOOD [id number] 19:00:00* Test Item Value Reference Range Comments CULTURE (BEAKER) (test tcny=5984) No growth in 5 days BLOOD [id number] 19:00:00* Test Item Value Reference Range Comments CULTURE (BEAKER) (test qqim=7249) No growth in 5 days BLOOD [id number] 07:00:00* Test Item Value Reference Range Comments CULTURE (BEAKER) (test ajum=1312) No growth in 5 days BODY FLUID CULTURE + GRAM [id number] 07:34:00* Test Item Value Reference Range Comments CULTURE (BEAKER) (test wbqv=0148) No growth GRAM STAIN RESULT (BEAKER) (test urch=6193) 3+ WBCs GRAM STAIN RESULT (BEAKER) (test fyge=71825) No organisms seen [id number] 11:23:00Medical Cytology Report Case: [id number] Authorizing Provider: Aubrie Adkins, Collected: 12/12/2016 1155 Ordering Location: [address] Med/Surg Received: 12/12/2016 1338 Pathologist: Yessenia Mera MD Specimen: Peritoneal Fluid, Abdominal Cavity PERITONEAL FLUID (CYTOSPINS): - NO MALIGNANT CELLS IDENTIFIED ACUTE INFLAMMATION PRESENT [id number] FLUID 600 mls brownish red; 4 cytospinsCollected: [id number]: [id number]. [facility], Department of Pathology, [address] [place] [id number], Al. [facility], Department of Pathology, [address] [place] [address], LAE W/PLT COUNT & AUTO [id number] 06:20:00* Test Item Value Reference Range Comments WHITE BLOOD CELL COUNT (BEAKER) (test nshn=056) 5.7 K/ L 4.0-10.0 RED BLOOD CELL COUNT (BEAKER) (test awbj=769) 3.73 M/ L 4.20-5.80 HEMOGLOBIN (BEAKER) (test syaj=752) 11.3 GM/DL 13.0-16.8 HEMATOCRIT (BEAKER) (test eyvl=497) 33.7 % 40.0-50.0 MEAN CORPUSCULAR VOLUME (BEAKER) (test dvxd=118) 90.5 fL 82.0-98.0 MEAN CORPUSCULAR HEMOGLOBIN (BEAKER) (test kbaf=425) 30.3 pg 27.0-33.0 MEAN CORPUSCULAR HEMOGLOBIN CONC (BEAKER) (test ptje=616) 33.5 GM/DL 32.0-36.0 RED CELL DISTRIBUTION WIDTH (BEAKER) (test ipcd=264) 16.6 % 10.3-14.2 PLATELET COUNT (BEAKER) (test ixok=932) 98 K/CU MM 150-430 No clot detected MEAN PLATELET VOLUME (BEAKER) (test owkx=777) 12.2 fL 6.5-10.5 NUCLEATED RED BLOOD CELLS (BEAKER) (test tvnp=275) 0 /100 WBC 0-0 NEUTROPHILS RELATIVE PERCENT (BEAKER) (test suah=142) 68 % LYMPHOCYTES RELATIVE PERCENT (BEAKER) (test ympv=722) 17 % MONOCYTES RELATIVE PERCENT (BEAKER) (test jdms=407) 12 % EOSINOPHILS RELATIVE PERCENT (BEAKER) (test dibt=308) 3 % BASOPHILS RELATIVE PERCENT (BEAKER) (test dqjz=516) 0 % NEUTROPHILS ABSOLUTE COUNT (BEAKER) (test lhcy=428) 3.90 K/ L 1.80-8.00 LYMPHOCYTES ABSOLUTE COUNT (BEAKER) (test trpt=526) 1.00 K/ L 1.48-4.50 MONOCYTES ABSOLUTE COUNT (BEAKER) (test gndm=497) 0.70 K/ L 0.00-1.30 EOSINOPHILS ABSOLUTE COUNT (BEAKER) (test ptar=222) 0.20 K/ L 0.00-0.50 BASOPHILS ABSOLUTE COUNT (BEAKER) (test uqoz=560) 0.00 K/ L 0.00-0.20 COMPREHENSIVE METABOLIC [id number] 06:19:00* Test Item Value Reference Range Comments TOTAL PROTEIN (BEAKER) (test pfsk=872) 6.2 gm/dL 6.0-8.5 ALBUMIN (BEAKER) (test egia=3620) 2.8 g/dL 3.5-5.0 ALKALINE PHOSPHATASE (BEAKER) (test tkba=524) 187 U/L 30-115 BILIRUBIN TOTAL (BEAKER) (test ymky=554) 4.3 mg/dL 0.1-1.2 SODIUM (BEAKER) (test lcdx=583) 138 meq/L 135-148 POTASSIUM (BEAKER) (test rlfg=686) 2.6 meq/L 3.6-5.5 CHLORIDE (BEAKER) (test uufz=163) 98 meq/L 98-106 CO2 (BEAKER) (test pycx=341) 28 meq/L 20-29 BLOOD UREA NITROGEN (BEAKER) (test zqrh=083) 21 mg/dL 10-26 CREATININE (BEAKER) (test kjie=741) 1.20 mg/dL 0.50-1.20 GLUCOSE RANDOM (BEAKER) (test hzsb=447) 91 mg/dL 70-110 CALCIUM (BEAKER) (test foqm=806) 8.1 mg/dL 8.5-10.5 AST (SGOT) (BEAKER) (test jhyu=982) 27 U/L 5-40 ALT (SGPT) (BEAKER) (test nhlv=546) 29 U/L 5-50 EGFR (BEAKER) (test owbm=9803) 73 mL/min/1.73 sq m ESTIMATED GFR IS NOT ACCURATE CREATININE CLEARANCE IN PREDICTING GLOMERULAR FILTRATION RATE. ESTIMATED GFR IS NOT APPLICABLE FOR DIALYSIS PATIENTS. Specimen slightly ictericU/S, ABDOMINAL, [id number] 11:57:00Abdomen limited area? Add comment if clarification is needed.->LiverReason for exam:-> liver abnormalitiesFINAL REPORT Comparison: CT of the abdomen and pelvis, 12/10/2016 Discussion: Sonographic evaluation of the right upper quadrant of the abdomen was performed. Liver: Measures 18.5 cm in length at the right midclavicular. It demonstrates heterogeneous echogenicity without evidence of focal lesions. Main portal vein diameter 13 mm. Biliary tree: Common duct 3 mm. Gallbladder: Multiple stones or sludge seen. There is no gallbladder distention. The wall is thickened measuring 5 mm. Small amount of pericholecystic fluid. Pancreas: Visualized portions demonstrate no abnormalities. Ascites: small amount of ascites Kidneys: The right kidney measures 10.8cm. It demonstrates normal cortical echogenicity, without evidence of hydronephrosis, mass, or calculi. IVC/Aorta: Segments partially seen demonstrate no obvious abnormalities. IMPRESSION: Nonspecific heterogeneous appearance of the liver. No significant biliary dilatation identified by ultrasound. MRCP recommended if there is clinical concern for biliary obstruction. Gallbladder sludge and stones. Gallbladder wall thickening is nonspecific, may be related to presence of ascites and hepatic dysfunction. No definitive sonographic findings of acute cholecystitis. Signed: Paco English MD Report Verified Date/Time: 12/13/2016 11:57:12 Reading Location: [facility] Radiolog y Reading Room 1 1:57 AM BLOOD [id number] 07:42:00* Test Item Value Reference Range Comments CULTURE (BEAKER) (test njma=8064) Same organism has been isolated from cultures(s) of the same body site and collection date. Repeat identification and susceptibility testing performed only after consultation with the clinical microbiology laboratory.Refer to previous culture ofEscherichia coli GRAM STAIN RESULT (BEAKER) (test npik=4385) From aerobic bottle only: gram negative rods pediatric bottle BLOOD [id number] 07:40:00* Test Item Value Reference Range Comments CULTURE (BEAKER) (test pdql=0130) ESCHERICHIA COLI Escherichia coli Amikacin (test code=1) Ampicillin + Sulbactam (test code=6) Aztreonam (test code=32) Cefazolin (test code=9) Cefepime (test code=51) Cefoxitin (test code=68) Ceftazidime (test code=27) Ceftriaxone (test code=52) Ertapenem (test code=38) Gentamicin (test code=18) Levofloxacin (test code=22) Meropenem (test code=34) Nitrofurantoin (test code=23) Piperacillin + Tazobactam (test code=29) Tetracycline (test code=2) Tigecycline (test oohv=502) Tobramycin (test code=25) Trimethoprim + Sulfamethoxazole (test code=47) GRAM STAIN RESULT (BEAKER) (test txrh=2505) gram negative rods pedi bottle COMPREHENSIVE METABOLIC [id number] 05:45:00* Test Item Value Reference Range Comments TOTAL PROTEIN (BEAKER) (test tuyc=308) 6.3 gm/dL 6.0-8.5 ALBUMIN (BEAKER) (test ussu=9446) 2.8 g/dL 3.5-5.0 ALKALINE PHOSPHATASE (BEAKER) (test xlgj=889) 199 U/L 30-115 BILIRUBIN TOTAL (BEAKER) (test ucks=647) 5.2 mg/dL 0.1-1.2 SODIUM (BEAKER) (test qjxm=136) 139 meq/L 135-148 POTASSIUM (BEAKER) (test jmts=211) 3.5 meq/L 3.6-5.5 CHLORIDE (BEAKER) (test autk=826) 99 meq/L 98-106 CO2 (BEAKER) (test ipfl=039) 30 meq/L 20-29 BLOOD UREA NITROGEN (BEAKER) (test oswf=649) 22 mg/dL 10-26 CREATININE (BEAKER) (test frhb=611) 1.20 mg/dL 0.50-1.20 GLUCOSE RANDOM (BEAKER) (test wjrp=240) 80 mg/dL 70-110 CALCIUM (BEAKER) (test dpnr=689) 8.4 mg/dL 8.5-10.5 AST (SGOT) (BEAKER) (test ifss=581) 36 U/L 5-40 ALT (SGPT) (BEAKER) (test ajsj=796) 39 U/L 5-50 EGFR (BEAKER) (test drgn=2048) 73 mL/min/1.73 sq m ESTIMATED GFR IS NOT ACCURATE CREATININE CLEARANCE IN PREDICTING GLOMERULAR FILTRATION RATE. ESTIMATED GFR IS NOT APPLICABLE FOR DIALYSIS PATIENTS. Specimen moderately ictericCBC W/PLT COUNT & AUTO [id number] 05:41:00* Test Item Value Reference Range Comments WHITE BLOOD CELL COUNT (BEAKER) (test lobj=769) 6.5 K/ L 4.0-10.0 RED BLOOD CELL COUNT (BEAKER) (test dqah=248) 3.68 M/ L 4.20-5.80 HEMOGLOBIN (BEAKER) (test wbex=629) 11.0 GM/DL 13.0-16.8 HEMATOCRIT (BEAKER) (test utcj=882) 33.5 % 40.0-50.0 MEAN CORPUSCULAR VOLUME (BEAKER) (test djdf=301) 91.1 fL 82.0-98.0 MEAN CORPUSCULAR HEMOGLOBIN (BEAKER) (test aaex=614) 29.9 pg 27.0-33.0 MEAN CORPUSCULAR HEMOGLOBIN CONC (BEAKER) (test hdio=784) 32.8 GM/DL 32.0-36.0 RED CELL DISTRIBUTION WIDTH (BEAKER) (test nisp=170) 17.3 % 10.3-14.2 PLATELET COUNT (BEAKER) (test bqzs=332) 92 K/CU MM 150-430 No clot seen MEAN PLATELET VOLUME (BEAKER) (test jawk=275) 12.9 fL 6.5-10.5 NUCLEATED RED BLOOD CELLS (BEAKER) (test lear=227) 0 /100 WBC 0-0 NEUTROPHILS RELATIVE PERCENT (BEAKER) (test zxkq=012) 77 % LYMPHOCYTES RELATIVE PERCENT (BEAKER) (test nthv=651) 11 % MONOCYTES RELATIVE PERCENT (BEAKER) (test nmkq=938) 8 % EOSINOPHILS RELATIVE PERCENT (BEAKER) (test ppqm=936) 4 % BASOPHILS RELATIVE PERCENT (BEAKER) (test gelj=289) 0 % NEUTROPHILS ABSOLUTE COUNT (BEAKER) (test qqbb=111) 5.00 K/ L 1.80-8.00 LYMPHOCYTES ABSOLUTE COUNT (BEAKER) (test zvqv=335) 0.70 K/ L 1.48-4.50 MONOCYTES ABSOLUTE COUNT (BEAKER) (test iawt=472) 0.50 K/ L 0.00-1.30 EOSINOPHILS ABSOLUTE COUNT (BEAKER) (test akyy=488) 0.30 K/ L 0.00-0.50 BASOPHILS ABSOLUTE COUNT (BEAKER) (test gsgu=254) 0.00 K/ L 0.00-0.20 U/S, [id number] 13:51:00Reason for exam:->diagnositic and therapeutic paracentesisShould this be performed at the bedside?->NoFINAL REPORT Procedure: Ultrasound-Guided Paracentesis: Clinical History: Ascites Physician: Amador Sedation: None Local anesthesia: 1% Xylocaine and sodium bicarbonate Technique: Following informed consent, the right abdomen was prepped and draped with maximal sterile barrier technique and local anesthesia given. A 5 F paracentesis catheter was inserted into the peritoneal space with ultrasound guidance and 2000 cc of yellow ascites was aspirated. The catheter was removed. No immediate complications were noted. Impression: Unco mplicated ultrasound-guided paracentesis. Signed: Paco English Verified Date/Time: 12/12/2016 13:51:18 Reading Location: [facility] Radiology Reading Room E [id number] 07:19:00* Test Item Value Reference Range Comments CULTURE (BEAKER) (test ljty=6729) <10,000 col/mL skin eric PROTHROMBIN [id number] 05:15:00* Test Item Value Reference Range Comments PROTIME (BEAKER) (test oicr=533) 18.1 seconds 9.3-12.0 INR (BEAKER) (test xftc=964) 1.7 <=5.9 RECOMMENDED COUMADIN/WARFARIN INR THERAPY RANGESSTANDARD DOSE: 2.0 - 3.0 Inclu matilda: PROPHYLAXIS for venous thrombosis, systemic embolization; TREATMENT for bell ous thrombosis and/or pulmonary embolus.HIGH RISK: Target INR is 2.5-3.5 for pat ients with mechanical heart valves.COMPREHENSIVE METABOLIC [id number] 04:59:00* Test Item Value Reference Range Comments TOTAL PROTEIN (BEAKER) (test kywm=162) 6.4 gm/dL 6.0-8.5 ALBUMIN (BEAKER) (test ywly=4119) 3.0 g/dL 3.5-5.0 ALKALINE PHOSPHATASE (BEAKER) (test esaj=534) 227 U/L 30-115 BILIRUBIN TOTAL (BEAKER) (test mfvw=681) 6.8 mg/dL 0.1-1.2 SODIUM (BEAKER) (test bbbh=710) 140 meq/L 135-148 POTASSIUM (BEAKER) (test fwvk=283) 2.7 meq/L 3.6-5.5 CHLORIDE (BEAKER) (test loqw=528) 102 meq/L 98-106 CO2 (BEAKER) (test pixm=615) 24 meq/L 20-29 BLOOD UREA NITROGEN (BEAKER) (test xxtd=703) 28 mg/dL 10-26 CREATININE (BEAKER) (test ywua=342) 1.40 mg/dL 0.50-1.20 GLUCOSE RANDOM (BEAKER) (test bidk=520) 97 mg/dL 70-110 CALCIUM (BEAKER) (test eezk=423) 8.4 mg/dL 8.5-10.5 AST (SGOT) (BEAKER) (test gtwu=749) 49 U/L 5-40 ALT (SGPT) (BEAKER) (test ulqt=058) 50 U/L 5-50 EGFR (BEAKER) (test bvsi=2675) 61 mL/min/1.73 sq m ESTIMATED GFR IS NOT ACCURATE CREATININE CLEARANCE IN PREDICTING GLOMERULAR FILTRATION RATE. ESTIMATED GFR IS NOT APPLICABLE FOR DIALYSIS PATIENTS. Specimen moderately ictericCBC W/PLT COUNT & AUTO [id number] 04:24:00* Test Item Value Reference Range Comments WHITE BLOOD CELL COUNT (BEAKER) (test giip=491) 8.2 K/ L 4.0-10.0 RED BLOOD CELL COUNT (BEAKER) (test akdm=576) 3.92 M/ L 4.20-5.80 HEMOGLOBIN (BEAKER) (test cadw=439) 11.7 GM/DL 13.0-16.8 HEMATOCRIT (BEAKER) (test fcgr=182) 35.7 % 40.0-50.0 MEAN CORPUSCULAR VOLUME (BEAKER) (test mvia=897) 91.2 fL 82.0-98.0 MEAN CORPUSCULAR HEMOGLOBIN (BEAKER) (test qjtr=953) 29.9 pg 27.0-33.0 MEAN CORPUSCULAR HEMOGLOBIN CONC (BEAKER) (test txmo=201) 32.8 GM/DL 32.0-36.0 RED CELL DISTRIBUTION WIDTH (BEAKER) (test lwyw=397) 17.5 % 10.3-14.2 PLATELET COUNT (BEAKER) (test mims=165) 104 K/CU MM 150-430 No clot detected; history of low PLT MEAN PLATELET VOLUME (BEAKER) (test scph=824) 12.6 fL 6.5-10.5 NUCLEATED RED BLOOD CELLS (BEAKER) (test btoa=485) 0 /100 WBC 0-0 NEUTROPHILS RELATIVE PERCENT (BEAKER) (test tobk=856) 89 % LYMPHOCYTES RELATIVE PERCENT (BEAKER) (test hzwu=334) 5 % MONOCYTES RELATIVE PERCENT (BEAKER) (test oevd=286) 5 % EOSINOPHILS RELATIVE PERCENT (BEAKER) (test zzsf=771) 1 % BASOPHILS RELATIVE PERCENT (BEAKER) (test kyhf=712) 0 % NEUTROPHILS ABSOLUTE COUNT (BEAKER) (test fcfp=418) 7.40 K/ L 1.80-8.00 LYMPHOCYTES ABSOLUTE COUNT (BEAKER) (test skzk=280) 0.40 K/ L 1.48-4.50 MONOCYTES ABSOLUTE COUNT (BEAKER) (test xtmi=132) 0.40 K/ L 0.00-1.30 EOSINOPHILS ABSOLUTE COUNT (BEAKER) (test dqsg=731) 0.10 K/ L 0.00-0.50 BASOPHILS ABSOLUTE COUNT (BEAKER) (test vscv=732) 0.00 K/ L 0.00-0.20 HEPATOBILIARY [id number] 11:51:00Reason for exam:->jaundiceFINAL REPORT PROCEDURE: HEPATOBILIARY SCAN CPT CODE: 15227 INDICATION: Jaundice, cholangitis PROTOCOL: 6.5 mCi of Tc-99m mebrofenin was injected intravenously. Images of the upper abdomen were obtained for approximately 60 minutes after tracer injection. Additional 15 hour delayed images were obtained FINDINGS: Initial tracer uptake into the liver is delayed with persistent blood pool activity. Subsequent tracer clearance from the liver proceeds abnormal. The small bowel, gallbladder and common duct are not seen.. IMPRESSION: Abnormal exam. The study is consistent with cholestasis. High-grade obstruction of the common duct may cause this pattern. Signed: Jose Pillai MDReport Verified Date/Time: 12/11/2016 11:51:34 W/PLT COUNT & AUTO [id number] 06:36:00* Test Item Value Reference Range Comments WHITE BLOOD CELL COUNT (BEAKER) (test thzt=067) 13.9 K/ L 4.0-10.0 RED BLOOD CELL COUNT (BEAKER) (test fqro=325) 3.78 M/ L 4.20-5.80 HEMOGLOBIN (BEAKER) (test dhoj=885) 11.2 GM/DL 13.0-16.8 HEMATOCRIT (BEAKER) (test fbwv=410) 34.8 % 40.0-50.0 MEAN CORPUSCULAR VOLUME (BEAKER) (test bgtm=147) 92.1 fL 82.0-98.0 MEAN CORPUSCULAR HEMOGLOBIN (BEAKER) (test nkho=905) 29.6 pg 27.0-33.0 MEAN CORPUSCULAR HEMOGLOBIN CONC (BEAKER) (test prmp=150) 32.1 GM/DL 32.0-36.0 RED CELL DISTRIBUTION WIDTH (BEAKER) (test cnpp=851) 18.0 % 10.3-14.2 PLATELET COUNT (BEAKER) (test ggkq=367) 93 K/CU MM 150-430 histroy of low platlet MEAN PLATELET VOLUME (BEAKER) (test qdai=601) 13.2 fL 6.5-10.5 NUCLEATED RED BLOOD CELLS (BEAKER) (test lvgx=758) 0 /100 WBC 0-0 NEUTROPHILS RELATIVE PERCENT (BEAKER) (test pstu=694) 93 % LYMPHOCYTES RELATIVE PERCENT (BEAKER) (test oxub=115) 2 % MONOCYTES RELATIVE PERCENT (BEAKER) (test srmv=412) 4 % EOSINOPHILS RELATIVE PERCENT (BEAKER) (test vksb=870) 1 % BASOPHILS RELATIVE PERCENT (BEAKER) (test vtil=701) 0 % NEUTROPHILS ABSOLUTE COUNT (BEAKER) (test pdkb=054) 13.00 K/ L 1.80-8.00 LYMPHOCYTES ABSOLUTE COUNT (BEAKER) (test lrix=001) 0.30 K/ L 1.48-4.50 MONOCYTES ABSOLUTE COUNT (BEAKER) (test tyrw=932) 0.60 K/ L 0.00-1.30 EOSINOPHILS ABSOLUTE COUNT (BEAKER) (test pyxo=763) 0.10 K/ L 0.00-0.50 BASOPHILS ABSOLUTE COUNT (BEAKER) (test flaa=763) 0.00 K/ L 0.00-0.20 POCT-GLUCOSE [id number] 06:32:00* Test Item Value Reference Range Comments POC-GLUCOSE METER (BEAKER) (test ahee=0595) 115 mg/dL 70-110 TESTED AT [facility] [address] [place] [address] COMPREHENSIVE METABOLIC [id number] 06:18:00* Test Item Value Reference Range Comments TOTAL PROTEIN (BEAKER) (test xgvi=873) 6.0 gm/dL 6.0-8.5 ALBUMIN (BEAKER) (test xpot=3498) 2.9 g/dL 3.5-5.0 ALKALINE PHOSPHATASE (BEAKER) (test hhag=334) 257 U/L 30-115 BILIRUBIN TOTAL (BEAKER) (test vqmu=133) 6.4 mg/dL 0.1-1.2 SODIUM (BEAKER) (test jrhi=888) 144 meq/L 135-148 POTASSIUM (BEAKER) (test rhqt=831) 3.2 meq/L 3.6-5.5 CHLORIDE (BEAKER) (test pcsu=521) 104 meq/L 98-106 CO2 (BEAKER) (test gyhb=912) 24 meq/L 20-29 BLOOD UREA NITROGEN (BEAKER) (test nftr=347) 29 mg/dL 10-26 CREATININE (BEAKER) (test xzis=332) 1.30 mg/dL 0.50-1.20 GLUCOSE RANDOM (BEAKER) (test iecc=895) 75 mg/dL 70-110 CALCIUM (BEAKER) (test lmmg=137) 8.4 mg/dL 8.5-10.5 AST (SGOT) (BEAKER) (test aqbd=637) 69 U/L 5-40 ALT (SGPT) (BEAKER) (test egid=853) 63 U/L 5-50 EGFR (BEAKER) (test vxbd=8846) 67 mL/min/1.73 sq m ESTIMATED GFR IS NOT ACCURATE CREATININE CLEARANCE IN PREDICTING GLOMERULAR FILTRATION RATE. ESTIMATED GFR IS NOT APPLICABLE FOR DIALYSIS PATIENTS. Specimen moderately ictericCT, [id number] 14:21:00Reason for exam:->right mid abd pain; feverFINAL REPORT TECHNIQUE: CT of the abdomen and pelvis WITH intravenous contrast and WITHOUT oral contrast. Dose modulation, iterative reconstruction, and/or weight-based adjustment of the mA/kV was utilized to reduce the radiation dose to as low as reasonably achievable. INDICATION: 66-year-old man with fever as well as right and mid abdominal pain. COMPARISON: None. FINDINGS: LOWER THORAX: Trace right pleural effusion. HEPATOBILIARY: Heterogeneous attenuation of the liver, suggestive of passive hepatic congestion. No focal hepatic lesions. Gallbladder is unremarkable. The common bile duct is prominent, measuring 0.9 cm in diameter.SPLEEN: No splenomegaly.PANCREAS: No focal masses or ductal dilatation. ADRENALS: No adrenal nodules.KIDNEYS/URETERS: No hydronephrosis, stones, or solid mass lesions.PELVIC ORGANS/BLADDER: Unremarkable. PERITONEUM/RE TROPERITONEUM: Moderate volume ascites. No free air. 2.3 cm peripherally calcifi ed structure in the dependent portion of the peritoneal cavity, possibly sequela of prior omental infarct/epiploic appendagitis.LYMPH NODES: Multiple mildly pro minent subcentimeter retroperitoneal lymph nodes, likely reactive.VESSELS: Dilat ed inferior vena cava and hepatic veins, suggestive of right heart failure. Athe rosclerotic vascular calcifications without aneurysm. GI TRACT: No distention or wall thickening. Colonic diverticula. BONES AND SOFT TISSUES: Degenerative langston ges of the visualized spine. Moderate-sized indirect inguinal hernia on the left contains ascitic fluid. IMPRESSION:Prominent common bile duct; obstructing sto ne or soft tissue lesion cannot be excluded. Findings of right heart failure wit h passive hepatic congestion Moderate volume ascites. RECOMMENDATION:If indicate d, MRCP or ERCP may be obtained for further evaluation. Signed: Kimmie Mcmanus MDReport Verified Date/Time: 12/10/2016 14:21:24 Reading Location: [facility] C013Y CT Body Reading Room Electronically signed by: KIMMIE MCMANUS MD on 0 12/10/2016 02:21 PM CBC W/PLT COUNT & AUTO [id number] 13:55:00* Test Item Value Reference Range Comments WHITE BLOOD CELL COUNT (BEAKER) (test bvcq=095) 10.7 K/ L 4.0-10.0 RED BLOOD CELL COUNT (BEAKER) (test mpjr=053) 3.89 M/ L 4.20-5.80 HEMOGLOBIN (BEAKER) (test zhhi=090) 11.6 GM/DL 13.0-16.8 HEMATOCRIT (BEAKER) (test ueeb=341) 35.5 % 40.0-50.0 MEAN CORPUSCULAR VOLUME (BEAKER) (test avlr=107) 91.3 fL 82.0-98.0 MEAN CORPUSCULAR HEMOGLOBIN (BEAKER) (test exml=722) 29.9 pg 27.0-33.0 MEAN CORPUSCULAR HEMOGLOBIN CONC (BEAKER) (test xbfa=475) 32.7 GM/DL 32.0-36.0 RED CELL DISTRIBUTION WIDTH (BEAKER) (test atvq=374) 17.2 % 10.3-14.2 PLATELET COUNT (BEAKER) (test ovwd=770) 104 K/CU MM 150-430 MEAN PLATELET VOLUME (BEAKER) (test xrsh=854) 13.4 fL 6.5-10.5 NUCLEATED RED BLOOD CELLS (BEAKER) (test hjyo=462) 0 /100 WBC 0-0 (MANUAL DIFFERENTIAL)2016-12-10 13:55:00* Test Item Value Reference Range Comments NEUTROPHILS - REL (DIFF) (BEAKER) (test tuja=5876) 94 % LYMPHOCYTES - REL (DIFF) (BEAKER) (test czyz=2818) 3 % MONOCYTES - REL (DIFF) (BEAKER) (test jpbr=9933) 1 % BASOPHILS - REL (DIFF) (BEAKER) (test wbaz=2847) 1 % BANDS - REL (DIFF) (BEAKER) (test tluc=0845) 1 % 0-10 NEUTROPHILS - ABS (DIFF) (BEAKER) (test xuvj=7244) 10.06 K/ L 1.80-8.00 LYMPHOCYTES - ABS (DIFF) (BEAKER) (test uqwl=3173) 0.32 K/ L 1.48-4.50 MONOCYTES - ABS (DIFF) (BEAKER) (test yrbv=1219) 0.11 K/ L 0.00-1.30 BASOPHILS - ABS (DIFF) (BEAKER) (test krim=4943) 0.11 K/ L 0.00-0.20 BANDS-ABS (DIFF) (BEAKER) (test udhi=2634) 0.1 K/ L 0.0-0.8 TOTAL COUNTED (BEAKER) (test nhoo=9390) 100 BANDS + SEGMENTED NEUTROPHILS (BEAKER) (test lpns=0189) 10.17 WBC MORPHOLOGY (BEAKER) (test mjtc=228) Normal LARGE PLT(BEAKER) (test oqzg=5595) Present MICROCYTES (BEAKER) (test tgak=070) Present OVALOCYTES (BEAKER) (test jhlh=893) 1+ few URINALYSIS W/ [id number] 13:52:00* Test Item Value Reference Range Comments COLOR (BEAKER) (test jhcm=410) Yellow CLARITY (BEAKER) (test zxye=396) Clear SPECIFIC GRAVITY UA (BEAKER) (test zeop=472) 1.010 1.001-1.035 PH UA (BEAKER) (test xeqd=216) 6.0 5.0-8.0 PROTEIN UA (BEAKER) (test mfth=419) Trace Negative GLUCOSE UA (BEAKER) (test ncbf=831) Negative Negative KETONES UA (BEAKER) (test mikx=531) Negative Negative BILIRUBIN UA (BEAKER) (test xbbe=345) Positive Negative BLOOD UA (BEAKER) (test nldv=724) Negative Negative NITRITE UA (BEAKER) (test kpbq=201) Negative Negative LEUKOCYTE ESTERASE UA (BEAKER) (test iboh=577) Negative Negative UROBILINOGEN UA (BEAKER) (test yfwb=240) 2.0 mg/dL 0.2-1.0 BACTERIA (BEAKER) (test txnn=424) None Seen RBC UA-MANUAL (BEAKER) (test hnpr=5920) None Seen /HPF WBC UA-MANUAL (BEAKER) (test isgz=5935) None Seen /HPF SQUAMOUS EPITHELIAL MANUAL (BEAKER) (test ceyu=0331) None Seen /HPF SOURCE(BEAKER) (test rbkg=0199) COMPREHENSIVE METABOLIC [id number] 12:25:00* Test Item Value Reference Range Comments TOTAL PROTEIN (BEAKER) (test yriq=555) 7.2 gm/dL 6.0-8.5 ALBUMIN (BEAKER) (test oldd=1354) 3.5 g/dL 3.5-5.0 ALKALINE PHOSPHATASE (BEAKER) (test jmyw=820) 362 U/L 30-115 BILIRUBIN TOTAL (BEAKER) (test lkip=546) 4.5 mg/dL 0.1-1.2 SODIUM (BEAKER) (test plrt=830) 142 meq/L 135-148 POTASSIUM (BEAKER) (test mnok=191) 3.6 meq/L 3.6-5.5 CHLORIDE (BEAKER) (test kcuf=333) 102 meq/L 98-106 CO2 (BEAKER) (test foba=369) 25 meq/L 20-29 BLOOD UREA NITROGEN (BEAKER) (test jziz=178) 28 mg/dL 10-26 CREATININE (BEAKER) (test zswh=044) 1.20 mg/dL 0.50-1.20 GLUCOSE RANDOM (BEAKER) (test bgte=312) 77 mg/dL 70-110 CALCIUM (BEAKER) (test ixfk=302) 9.0 mg/dL 8.5-10.5 AST (SGOT) (BEAKER) (test gcxa=675) 113 U/L 5-40 ALT (SGPT) (BEAKER) (test rmpt=250) 75 U/L 5-50 EGFR (BEAKER) (test ujhf=1141) mL/min/1.73 sq m INSUFFICIENT CLINICAL DATA TO CALCULATE ESTIMATED GFR. Specimen slightly [id number] 12:23:00* Test Item Value Reference Range Comments LIPASE (BEAKER) (test qkou=051) 25 U/L 6-51 Specimen slightly icteric
[2018-08-25] MEDS ORDERED: DIATRIZOATE MEGL/DIATRIZOA SOD 30 ML BTL PO ONE (22:54)
[2018-08-26 00:22] LABS: BASOPHILS % 0.5 % (0.0-1.0); BILIRUBIN,URINE NEGATIVE (NEGATIVE); CLARITY,URINE CLEAR (CLEAR); COLOR,URINE YELLOW (YELLOW); EOSINOPHILS # (AUTO) 0.5 (0.0-0.4); EOSINOPHILS % 6.5 % (0.0-6.0); HEMATOCRIT 39.2 % (38.2-49.6); HEMOGLOBIN 13.2 g/dL (14.0-18.0); KETONES,URINE TRACE (NEGATIVE); LEUKOCYTE ESTERASE ,URINE NEGATIVE (NEGATIVE); LYMPHOCYTES # (AUTO) 0.9 (1.0-3.2); LYMPHOCYTES % 12.2 % (18.0-39.1); MEAN CORPUSCULAR HEMOGLOBIN 28.4 pg (28-32); MEAN CORPUSCULAR HGB CONC 33.7 g/dL (31-35); MEAN CORPUSCULAR VOLUME 84.5 fL (81-99); MONOCYTES # (AUTO) 0.7 (0.2-0.8); MONOCYTES % 8.5 % (4.4-11.3); NEUTROPHILS # (AUTO) 5.5 (2.1-6.9); NITRITE,URINE NEGATIVE (NEGATIVE); PLATELET COUNT 144 x10e3/uL (140-360); PROTEIN,URINE DIPSTICK NEGATIVE (NEGATIVE); RED BLOOD COUNT 4.64 x10e6/uL (4.3-5.7); RED CELL DISTRIBUTION WIDTH 14.6 % (11.7-14.4); URINE UROBILINOGEN 1 mg/dL (0.2 - 1)
[2018-08-26 00:37] LABS: EPITHELIAL CELLS,URINE FEW /LPF; RBC,URINE 0-5 /HPF (0-5); WBC,URINE (MAN) 0-5 /HPF (0-5)
[2018-08-26 00:41] LABS: ALANINE AMINOTRANSFERASE 30 IU/L (0-55); ALBUMIN 3.6 g/dL (3.5-5.0); ALKALINE PHOSPHATASE 98 IU/L (40-150); AMYLASE 85 U/L (25-125); ANION GAP 11.6 mmol/L (8-16); BLOOD UREA NITROGEN 21 mg/dL (7-26); BUN/CREATININE RATIO 16 (6-25); CALCIUM 9.3 mg/dL (8.4-10.2); CARBON DIOXIDE 26 mmol/L (22-29); CHLORIDE 103 mmol/L (98-107); CREATININE, SERUM 1.33 mg/dL (0.72-1.25); EST GLOMERULAR FILTRATION RATE > 60 ML/MIN (60-); GLUCOSE 89 mg/dL (74-118); LIPASE 15 U/L (8-78); POTASSIUM 3.6 mmol/L (3.5-5.1); SODIUM 137 mmol/L (136-145)
--- NOTE | 2018-08-26 01:53 | Diagnostic Imaging Report ---
EXAMINATION: CT of the abdomen and pelvis with contrast. TECHNIQUE: Helical CT images of the abdomen and pelvis were performed from the lung bases to the lesser trochanters after the intravenous administration of 100 cc of Omnipaque 300 and the oral administration of Gastro. Coronal and sagittal reformatted images were obtained. COMPARISON: None. CLINICAL HISTORY:Abdominal pain DISCUSSION: ABDOMEN/PELVIS: LOWER THORAX:Unremarkable. HEPATOBILIARY: No focal hepatic lesions. No intra-or extrahepatic biliary ductal dilation. The gallbladder is normal. SPLEEN: No splenomegaly. PANCREAS: No focal masses or ductal dilatation. ADRENALS: No adrenal nodules. KIDNEYS/URETERS: No hydronephrosis, stones, or solid mass lesions. PELVIC ORGANS/BLADDER: Prakash catheter. Contrast. PERITONEUM/RETROPERITONEUM: No free air or fluid. LYMPH NODES: No intra-abdominal, retroperitoneal, pelvic or inguinal lymphadenopathy. VESSELS: Vascular calcifications. GI TRACT: No distention or wall thickening. Appendix normal. Scattered vascular calcifications. BONES AND SOFT TISSUE: No bony destructive lesions. Left inguinal hernia containing colon. No obstruction. IMPRESSION: No acute CT finding. Left inguinal hernia containing colon. No obstruction. Signed by: Dr. Kang Flores M.D. on 08/26/2018 1:49 AM
[2018-08-26 02:25] VITALS: BP 123/77
--- NOTE | 2018-08-26 02:41 | NUR ---
REPORT CALLED TO [facility] [place]. AWAITING EMS FOR TRANSPORT.
[2018-08-26] MEDS ORDERED: SODIUM CHLORIDE 0.9% 50ML 50 ML ONE (06:43)
[2018-08-26] MEDS ORDERED: IOPAMIDOL 370 MG/ML 200 ML INFUS..BTL INJ ONE (06:44)
== END 2018-08-26 03:32 | disposition home or self-care (01) ==
LOC: ER 22:12
DX: R10.33 Periumbilical pain (principal); K40.90 Unilateral inguinal hernia, without obstruction or gangrene, not specified as recurrent; F03.90 Unspecified dementia, unspecified severity, without behavioral disturbance, psychotic disturbance, mood disturbance, and anxiety; I10 Essential (primary) hypertension; I50.9 Heart failure, unspecified; K74.60 Unspecified cirrhosis of liver; F20.9 Schizophrenia, unspecified; Z95.0 Presence of cardiac pacemaker; Z86.73 Personal history of transient ischemic attack (TIA), and cerebral infarction without residual deficits
CPT/HCPCS: 36415; 51700; 74177; 80053; 81001; 82150; 83690; 85025; 99284; Q9967